=== PATIENT | male | born 1945 | race Caucasian/White ===

== ENCOUNTER 2019-05-17 11:13 | Outpatient (CLI) | payer MEDICARE, BC, SELFPAY ==
--- NOTE | 2019-05-17 08:45 | DI.RAD_ITS ---
SYMPTOM/DIAGNOSIS: LOW BACK PAIN, DORSALGIA, M54.9 LUMBAR SPINE: AP, lateral and bilateral oblique views of the lumbar spine were obtained. Comparison is made with 08/16/14. There are five lumbar type vertebral bodies. Since the prior examination, the patient has undergone a laminectomy at L 4. There is a very mild right convex curvature of the lumbar spine present. There is disc space narrowing at L 1-2, L 3-4 and L 5-S 1 with vacuum discs at L 3-4 and L 5-S 1. There are endplate osteophytes throughout the lumbar spine. Facet arthropathy is present throughout the lumbar spine. No acute fracture or subluxation is seen. No spondylolysis or spondylolisthesis is present. There is calcium in the abdominal aorta noted. IMPRESSION: Moderately severe degenerative changes in the lumbar spine. Status post L 4 laminectomy.
== END 2019-05-17 11:33 ==
PROVIDERS: PCP Family Medicine; Visit Provider Family Medicine
DX: M54.5 Low back pain (principal); M51.37 Other intervertebral disc degeneration, lumbosacral region; Z98.890 Other specified postprocedural states
CPT/HCPCS: 72110

== ENCOUNTER 2019-06-05 10:17 | Outpatient (CLI) | payer MEDICARE, BC, SELFPAY | END 2019-06-05 10:37 | PROVIDERS: PCP Family Medicine; Visit Provider Family Medicine | DX: M54.9 Dorsalgia, unspecified (principal) | CPT/HCPCS: 36415; 82565 ==

== ENCOUNTER 2019-06-07 00:57 | Outpatient (CLI) | payer MEDICARE, BC, SELFPAY ==
[2019-06-07] MEDS: Normal Saline Flush 10 ML SYR IVP (15:12)
[2019-06-07] MEDS: Gadoterate meglumine 20 ML VIAL IVP (15:14)
--- NOTE | 2019-06-07 15:45 | DI.MRI_ITS ---
SYMPTOMS/DIAGNOSIS: BACK PAIN WITH LEFT LEG RADICULAR PAIN, H/O L4 LAMINECTOMY, M54.9, DORSALGIA MRI OF THE LUMBAR SPINE: Comparison is made with November,. T1, T2 and STIR sagittal, T1 and T2 axial and pre and post gadolinium fat-suppressed T1 axial and sagittal sequences were performed. At L1-2, there is disc bulging, which is eccentric toward the right, encroaching on the right neural foramen. At L2-3, there is broad-based disc bulging, also mildly encroaching on both neural foramina. There are facet degenerative changes and ligamentous hypertrophy combining to cause mild central canal stenosis. At L3-4, there is moderate to severe loss of disc height eccentric toward the left. There is prominent broad-based disc bulging. There are facet degenerative changes and ligamentous hypertrophy creating severe bilateral neural foraminal narrowing as well as a moderate degree of central canal stenosis. The findings are more prominent compared with the previous exam. There has been previous laminectomy at L4-5. There is no significant narrowing of the central canal. There is broad-based disc bulging and bilateral neural foraminal narrowing of moderate to severe degree. At L5-S1, there is mild loss of disc height and endplate osteophytes as well as mild broad-based disc bulging. There are mild facet degenerative changes. There is severe right and moderate to severe left neural foraminal narrowing. Post contrast images show enhancement within the L3 vertebral body and at the superior endplate of L4. The findings could represent degenerative marrow signal changes; however, superimposed infection cannot be excluded. IMPRESSION: 1. Enhancement in the L3 and L4 vertebral bodies, which could be postsurgical and/or degenerative. Osteomyelitis cannot be excluded. 2. Severe degenerative disc changes and facet degenerative changes cause bilateral neural foraminal narrowing at multiple levels, most severe at L3-4. There is also multilevel disc bulging, most severe at L3-4. Moderate central canal stenosis is seen at L3-4.
== END 2019-06-07 01:17 ==
PROVIDERS: PCP Family Medicine; Visit Provider Family Medicine
DX: M54.16 Radiculopathy, lumbar region (principal); M51.17 Intervertebral disc disorders with radiculopathy, lumbosacral region; M47.27 Other spondylosis with radiculopathy, lumbosacral region; Z98.890 Other specified postprocedural states
CPT/HCPCS: 72158

== ENCOUNTER 2019-07-01 09:19 | Outpatient (CLI) | payer MEDICARE, BC, SELFPAY ==
[2019-07-01 11:03] LABS: C-Reactive Protein 0.25 mg/dL (0.0-0.3)
== END 2019-07-01 09:39 ==
PROVIDERS: PCP Family Medicine; Visit Provider Family Medicine
DX: M54.9 Dorsalgia, unspecified (principal)
CPT/HCPCS: 36415; 86140

== ENCOUNTER 2019-07-15 07:00 | Outpatient (CLI) | payer MEDICARE, BC, SELFPAY ==
[2019-07-15 12:58] LABS: Uric Acid 4.6 mg/dL (3.5-7.2)
[2019-07-15 13:10] LABS: Calculated LDL 89 mg/dL; Cholesterol 192 mg/dL (50-200); HDL Cholesterol 38 mg/dL (40-60); Triglyceride 328 mg/dL (30-150)
== END 2019-07-15 07:20 ==
PROVIDERS: PCP Family Medicine; Visit Provider Family Medicine
DX: E78.5 Hyperlipidemia, unspecified (principal); M10.9 Gout, unspecified
CPT/HCPCS: 36415; 80061; 82565; 84550

== ENCOUNTER 2019-07-29 09:50 | Outpatient (CLI) | payer MEDICARE, BC, SELFPAY ==
--- NOTE | 2019-07-29 10:14 | DI.RAD_ITS ---
EXAM: XR CHEST 2V PA LATERAL INDICATION: pre op [id number]. COMPARISON: No exams were available for comparison TECHNIQUE: 2D digital imaging was performed. FINDINGS: The heart is not enlarged. The lungs are clear. No pleural effusion seen. IMPRESSION: Negative examination of the chest.
[2019-07-29 10:21] LABS: HCT 44.6 % (40.0-50.0); HGB 14.9 g/dL (13.5-17.5); Mean Corp. HGB Concentration 33.4 g/dL (32.0-36.0); Mean Corpuscular Hemoglobin 32.3 pg (27.0-33.0); Mean Corpuscular Volume 96.7 fL (80-95); Mean Platelet Volume 10.4 fL (8.0-11.0); Platelet Count 246 x1000/uL (130-400); RBC 4.61 m/cumm (4.50-6.00); RBC Distribution Width 12.9 % (11.8-14.1); White Blood Cell Count 8.17 k/cumm (4.4-10.8)
[2019-07-29 12:57] LABS: ALT 62 U/L (16-63); AST 45 U/L (15-37); Albumin 4.2 g/dL (3.4-5.0); Alkaline Phosphatase 74 U/L (46-116); Anion Gap 11.5 mmol/L (3-11); BUN 17 mg/dL (7-18); Bilirubin, Total 0.7 mg/dL (0.2-1.0); CO2 24.5 mmol/L (21.0-32.0); CREATININE 1.09 mg/dL (0.70-1.30); Calcium 9.2 mg/dL (8.5-10.1); Chloride 106 mmol/L (98-107); Glucose 126 mg/dL (70-100); Potassium 4.7 mmol/L (3.5-5.1); Sodium 142 mmol/L (136-145); Total Protein 7.4 g/dL (6.4-8.2)
== END 2019-07-29 10:10 ==
PROVIDERS: PCP Family Medicine; Visit Provider Family Medicine
DX: Z01.818 Encounter for other preprocedural examination (principal); R69 Illness, unspecified
CPT/HCPCS: 36415; 80053; 85027; 71046

== ENCOUNTER 2019-11-16 00:34 | Outpatient (CLI) | payer MEDICARE, BC, SELFPAY ==
[2019-11-16 07:59] LABS: CREATININE 0.97 mg/dL (0.70-1.30)
[2019-11-16] MEDS: Normal Saline Flush 10 ML SYR IVP (08:37)
[2019-11-16] MEDS: Gadoterate meglumine 20 ML VIAL IVP (08:38)
--- NOTE | 2019-11-16 08:50 | DI.MRI_ITS ---
EXAM: MR LUMBAR SPINE WO/W CLINICAL HISTORY: RECURRENT BACK AND LEG PAIN, M54.5,M79.604, H/O LAMINECTOMY TECHNIQUE: Multiplanar multisequence MRI was performed. FINDINGS: The conus medullaris has a normal appearance and location. The patient is status post L4 laminectomy. At L5-S1, there is disc desiccation. Endplate osteophytes and endplate degenerative signal changes n oted. There is a diffuse disc bulge. No significant central spinal canal stenosis is present. Ther e is moderate bilateral neural foraminal stenosis. At L4-L5, there is a diffuse disc bulge. There are degenerative endplate signal changes and disc giselle iccation. No significant central spinal canal stenosis is seen. Moderate bilateral neural foraminal stenosis is present. At L3-L4, there is a diffuse disc bulge again noted. There are degenerative endplate signal changes. There are degenerative changes of the facets. These findings all contribute to cause severe centra l spinal canal stenosis. There is moderately severe right and severe left neural foraminal stenosis. At L2-L3, there is a mild diffuse disc bulge. There are degenerative endplate signal changes and disc desiccation. No significant central spinal canal stenosis is present. There is mild right neural fo raminal stenosis. At L1-L2, no significant central spinal canal stenosis is seen. Degenerative endplate signal changes . No significant neural foraminal stenosis is seen on the left. There is mild right neural foramina l stenosis. Following contrast administration, there is again seen enhancement of the endplates at L3-L4, it appe ars unchanged. No focal fluid collection is seen. IMPRESSION: 1. Multilevel degenerative changes in the lumbar spine. The findings are most marked at L3-L4. Find ings at this level cause severe central spinal canal and bilateral neural foraminal stenosis. 2. Stable enhancement of the L3-L4 vertebral bodies. No focal fluid collection is seen. This may be degenerative or postsurgical. Osteomyelitis may be considered less likely.
== END 2019-11-16 00:54 ==
PROVIDERS: PCP Family Medicine; Visit Provider Neurological Surgery
DX: M54.5 Low back pain (principal); M79.604 Pain in right leg; Z98.890 Other specified postprocedural states; M51.36 Other intervertebral disc degeneration, lumbar region; Z13.89 Encounter for screening for other disorder
CPT/HCPCS: 72158; 82565

== ENCOUNTER 2019-12-16 14:15 | Outpatient (CLI) | payer MEDICARE, BC, SELFPAY ==
[2019-12-16 15:17] LABS: HCT 44.4 % (40.0-50.0); HGB 15.1 g/dL (13.5-17.5); Mean Corpuscular Hemoglobin 32.6 pg (27.0-33.0); Mean Corpuscular Volume 95.9 fL (80-95); Mean Platelet Volume 10.8 fL (8.0-11.0); Platelet Count 268 x1000/uL (130-400); RBC 4.63 m/cumm (4.50-6.00); White Blood Cell Count 7.84 k/cumm (4.4-10.8)
[2019-12-16 16:08] LABS: ALT 72 U/L (16-63); AST 51 U/L (15-37); Albumin 4.2 g/dL (3.4-5.0); Alkaline Phosphatase 74 U/L (46-116); BUN 16 mg/dL (7-18); Bilirubin, Total 0.6 mg/dL (0.2-1.0); CREATININE 1.09 mg/dL (0.70-1.30); Calcium 9.2 mg/dL (8.5-10.1); Chloride 104 mmol/L (98-107); Glucose 87 mg/dL (74-106); Potassium 4.2 mmol/L (3.5-5.1); Sodium 143 mmol/L (136-145); Total Protein 7.4 g/dL (6.4-8.2)
== END 2019-12-16 14:35 ==
PROVIDERS: PCP Family Medicine; Visit Provider Family Medicine
DX: M54.9 Dorsalgia, unspecified (principal); Z01.818 Encounter for other preprocedural examination
CPT/HCPCS: 36415; 80053; 85027

== ENCOUNTER 2020-04-20 02:42 | Outpatient (CLI) | payer MEDICARE, BC, SELFPAY ==
--- NOTE | 2020-04-20 | DI.MRI_ITS ---
EXAM: MR LUMBAR SPINE WO/W CLINICAL HISTORY: RECURRENT/RESIDUAL LT LEG PAIN, MULTIPLE LS SURGERIES, M79.605. TECHNIQUE: Multiplanar multisequence MRI of the Lumbar Spine was performed. CONTRAST MATERIAL: IV Contrast: 20 mL of Dotarem contrast administered. COMPARISON: MR MR LUMBAR SPINE WO/W from 11/16/2019 FINDINGS: Patient was in severe pain during the exam. The exam is mildly limited by motion. Bones: The last intervertebral disc space is designated the L5/S1 level for the numbering purpose of this examination. The vertebral body heights are well maintained. There is a mild degenerative dextr oscoliosis centered at L3-4. Degenerative signal changes are again noted at the L3-4 endplates. Cord: The conus tip ends at the T12 L1 level. It is of normal size and signal intensity. T12-L1: No disc herniations or bulges are present. L1-2: There is disc bulging which is eccentric toward the right, causing mild right neural foraminal narrowing. L2-3: There is broad-based disc bulging eccentric toward the left, causing left neural foraminal narr owing. Facet degenerative changes contribute to [id number] central canal stenosis. L3-4: Laminectomy defect. Loss of disc height, endplate osteophytes and prominent diffuse disc bulgi ng, stable. There is some scarring within the central canal. There is severe central canal stenosis as well as severe right and moderate left neural foraminal narrowing. L4-5: Broad-based disc bulging is noted. There are mild facet degenerative changes. There is no si gnificant central canal stenosis. There is severe right and moderate left neural foraminal narrowing . L5-S1: Broad-based disc osteophytes. [id number] facet degenerative changes. No significant c entral canal stenosis. Severe right and moderate left neural foraminal narrowing. Soft tissues: The visualized SI joints and sacrum are well maintained. Postsurgical changes are seen in the posterior at the L3-4 level. The aorta is normal in diameter. There is no evidence of suspicious enhancement. IMPRESSION: Stable postsurgical and degenerative changes at L3-4. No new disc herniation is seen. There is no c hange in the postsurgical enhancement. DATA REPOSITORY:
[2020-04-20 09:02] LABS: CREATININE 1.11 mg/dL (0.70-1.30)
[2020-04-20] MEDS: Normal Saline Flush 10 ML SYR IVP (09:09)
[2020-04-20] MEDS: Gadoterate meglumine 20 ML VIAL IVP (09:10)
== END 2020-04-20 03:02 ==
PROVIDERS: PCP Family Medicine; Visit Provider Neurological Surgery
DX: M10.9 Gout, unspecified (principal); M79.605 Pain in left leg; M54.5 Low back pain; M51.36 Other intervertebral disc degeneration, lumbar region; Z98.1 Arthrodesis status
CPT/HCPCS: 72158; 82565

== ENCOUNTER 2020-07-18 13:14 | Outpatient (REF) | payer MEDICARE, BC, SELFPAY ==
[2020-07-18 14:03] LABS: Calculated LDL 113 mg/dL (<100); Cholesterol 208 mg/dL (<200); Glucose 106 mg/dL (74-106); HDL Cholesterol 42 mg/dL (40-60); Triglyceride 268 mg/dL (<150)
== END 2020-07-18 13:34 ==
LOC: LBN 13:14
PROVIDERS: PCP Family Medicine; Visit Provider Family Medicine
DX: E78.5 Hyperlipidemia, unspecified (principal); R73.9 Hyperglycemia, unspecified
CPT/HCPCS: 80061; 82947

== ENCOUNTER 2021-08-23 08:44 | Outpatient (CLI) | payer MEDICARE, BC, SELFPAY ==
[2021-08-23 10:45] LABS: Uric Acid 3.9 mg/dL (3.5-7.2)
[2021-08-23 11:10] LABS: Calculated LDL 85 mg/dL (<100); Cholesterol 169 mg/dL (<200); HDL Cholesterol 44 mg/dL (40-60); Triglyceride 200 mg/dL (<150)
== END 2021-08-23 08:45 | disposition home or self-care (01) ==
LOC: LOS 08:44
PROVIDERS: PCP Family Medicine; Referring Provider Family Medicine; Visit Provider Family Medicine
DX: E78.5 Hyperlipidemia, unspecified (principal); M10.9 Gout, unspecified
CPT/HCPCS: 36415; 80061; 84550

== ENCOUNTER 2022-07-08 14:57 | Outpatient (CLI) | payer MEDICARE, BC, SELFPAY ==
--- NOTE | 2022-07-08 14:45 | RT.EKG_ITS ---
APPROVED REPORT Exam: Resting ECG Reason for Exam: SOB Patient Location: O HR:112 bpm ECG Measurements Heart Rate 112 AXIS SC 138 P 68 QRSd 109 QRS -76 QT 361 T 76 QTc 493 Conclusion Sinus tachycardia...rate> 99 Multiform ventricular premature complexes...short R-R, variable morphology Inferior infarct, old...Q >35mS, II III aVF Anterior infarct, old...Q >40mS, abnormal ST-T, V2-V5
== END 2022-07-08 14:58 | disposition home or self-care (01) ==
PROVIDERS: PCP Family Medicine; Visit Provider Family Medicine
DX: R06.02 Shortness of breath (principal); R94.31 Abnormal electrocardiogram [ECG] [EKG]; I25.2 Old myocardial infarction; R00.0 Tachycardia, unspecified
CPT/HCPCS: 93010

== ENCOUNTER → 2022-07-08 15:51 | Outpatient (CLI) | payer MEDICARE, BC, SELFPAY ==
--- NOTE | 2022-07-08 15:30 | DI.RAD_ITS ---
Exam(s) XR CHEST 2V PA LATERAL EXAM: XR CHEST 2V PA LATERAL CLINICAL HISTORY: sob R05.3 CHRONIC COUGH TECHNIQUE: 2D digital imaging was performed of the chest. Two images were obtained. PA and lateral views were obtained. COMPARISON: CR XR CHEST 2V PA LATERAL from 07/29/2019 FINDINGS: MEDIASTINUM: Normal. HEART: Upper limits of normal. PULMONARY VASCULATURE: Mild pulmonary venous congestion. LUNGS: Diffuse increased interstitial markings bilaterally. No focal consolidating infiltrates. Und erlying COPD. PLEURAL SPACE: Blunting of both costophrenic angle suggesting small pleural effusions. BONE:Within normal limits for the patient's age. OTHER FINDINGS:Normal. IMPRESSION: Findings suggest a pulmonary venous congestion, pulmonary edema and small pleural effusions. DATA REPOSITORY: RADIATION DOSE DELIVERED:
== END ==
PROVIDERS: PCP Family Medicine; Visit Provider Family Medicine
DX: R05.3 Chronic cough (principal); J90 Pleural effusion, not elsewhere classified; J81.0 Acute pulmonary edema
CPT/HCPCS: 71046

== ENCOUNTER 2022-07-08 16:33 | Outpatient (CLI) | payer MEDICARE, BC, SELFPAY ==
[2022-07-08 16:37] LABS: Abs Immature Grans 0.04 10^3/uL (0.0-0.06); Absolute Basophil Count 0.04 10^3/uL (0.0-0.2); Absolute Eosinophil Count 0.13 10^3/uL (0.0-0.7); Absolute Lymphocyte Count 1.32 10^3/uL (1.2-3.4); Absolute Monocyte Count 0.71 10^3/uL (0.1-0.8); Absolute Neutrophil Count 5.74 10^3/uL (1.2-6.7); Basophils % 0.5; Eosinophils % 1.6; HCT 41.1 % (40.0-50.0); HGB 13.5 g/dL (13.5-17.5); Immature Grans % 0.5; Lymphocytes % 16.5; MCH 32.5 pg (27.0-33.0); MCHC 32.8 % (32.0-36.0); MCV 99 fL (80-95); MPV 10.4 fL (8.0-11.0); Monocytes % 8.9; Platelet Count 213 10^3/uL (130-400); RBC 4.16 10^6/uL (4.36-5.78); RDW 13.2 % (11.8-14.1); RDW-SD 47.6 fL; WBC 7.98 10^3/uL (4.4-10.8)
[2022-07-08 17:19] LABS: Anion Gap 8.8 mmol/L (3-11); BUN 14 mg/dL (7-18); CO2 27.2 mmol/L (21.0-32.0); CREATININE 1.1 mg/dL (0.70-1.30); Calcium 9.4 mg/dL (8.5-10.1); Chloride 103 mmol/L (98-107); Estimated GFR 70.01 (mL/min/1.73m2); Glucose 122 mg/dL (74-106); NT-proBNP 1893 pg/mL (<300); Potassium 4.3 mmol/L (3.5-5.1); Sodium 139 mmol/L (136-145)
== END 2022-07-08 16:34 | disposition home or self-care (01) ==
LOC: LBO 16:33
PROVIDERS: PCP Family Medicine; Visit Provider Family Medicine
DX: E87.1 Hypo-osmolality and hyponatremia (principal); R06.02 Shortness of breath; D64.9 Anemia, unspecified
CPT/HCPCS: 36415; 80048; 71046; 83880; 85025

== ENCOUNTER → 2022-08-04 01:48 | Outpatient (CLI) | payer MEDICARE, BC, SELFPAY ==
--- NOTE | 2022-08-04 14:52 | DI.RAD_ITS ---
Exam(s) XR WRIST RT COMPL NAVICULAR EXAM: XR WRIST RT COMPL NAVICULAR CLINICAL HISTORY: rt wrist pain for one month,M25.531. TECHNIQUE: 2D digital imaging was performed. Three views. COMPARISON: No exams were available for comparison FINDINGS: BONES: No acute fracture is present. No bony destructive lesion is seen. Navicular appears normal. JOINTS: The carpal bones are normally aligned. Mild degenerative changes 1st carpal metacarpal join t. SOFT TISSUE: Mild soft tissue swelling near radial styloid. IMPRESSION: No acute abnormality. DATA REPOSITORY: RADIATION DOSE DELIVERED:
--- NOTE | 2022-08-04 14:52 | DI.RAD_ITS ---
Exam(s) XR KNEE RT 3V AP,LAT,ARTEM EXAM: XR KNEE RT 3V AP,LAT,ARTEM CLINICAL HISTORY: rt knee pain; known arthritis; previous trauma,M25.569. TECHNIQUE: 2D digital imaging was performed. Three views. COMPARISON: No exams were available for comparison FINDINGS: BONES: No acute fracture is present. No bony destructive lesion is seen. Small enthesophyte at the quadriceps insertion on the patella. JOINTS: The knee is normally aligned. No joint effusion is seen. SOFT TISSUE: Mild vascular calcifications. IMPRESSION: Unremarkable radiographs of the right knee. DATA REPOSITORY: RADIATION DOSE DELIVERED:
== END ==
PROVIDERS: PCP Family Medicine; Visit Provider Family Medicine
DX: M25.561 Pain in right knee (principal); M25.531 Pain in right wrist; M18.11 Unilateral primary osteoarthritis of first carpometacarpal joint, right hand; M79.89 Other specified soft tissue disorders
CPT/HCPCS: 73562; 73110

== ENCOUNTER 2022-08-04 04:45 | Outpatient (CLI) | payer MEDICARE, BC, SELFPAY ==
[2022-08-04 16:32] LABS: Anion Gap 9.6 mmol/L (3-11); CO2 29.4 mmol/L (21.0-32.0); Chloride 101 mmol/L (98-107); NT-proBNP 1417 pg/mL (<300); Potassium 3.9 mmol/L (3.5-5.1); Sodium 140 mmol/L (136-145)
[2022-08-04 21:43] LABS: C-Reactive Protein 0.73 mg/dL (0.0-0.3)
== END 2022-08-04 04:46 | disposition home or self-care (01) ==
LOC: LBO 04:45
PROVIDERS: PCP Family Medicine; Visit Provider Family Medicine
DX: I50.9 Heart failure, unspecified (principal); E87.1 Hypo-osmolality and hyponatremia
CPT/HCPCS: 36415; 73562; 80051; 73110; 83880; 86140

== ENCOUNTER → 2022-08-26 01:31 | Outpatient (CLI) | payer MEDICARE, BC, SELFPAY ==
--- NOTE | 2022-08-26 10:44 | DI.US_ITS ---
APPROVED REPORT EXAM: Comprehensive 2D, Doppler, and color-flow Echocardiogram Patient Location: Out-Patient Quality Control Lab Tech: Apple Gilbert RDCS (AE) Indications: CHF Conclusion Mild concentric left ventricular hypertrophy. Estimated ejection fraction is 55%. There are no segm ental wall motion abnormalities Normal right ventricular size and systolic function Both atria are normal in size Aortic valve is sclerotic and trileaflet without stenosis or regurgitation Mitral annular calcification. Mild mitral regurgitation Normal tricuspid valve with trace regurgitation Wall motion Left Ventricle The left ventricle is normal size. The left ventricular systolic function is normal. The left ventric ular ejection fraction is within the normal range. Mild concentric left ventricular hypertrophy. Ther e is normal LV segmental wall motion. There is no ventricular septal defect visualized. LVEF is 55%. Right Ventricle The right ventricle is normal size. The right ventricular systolic function is normal. Atria The left atrium size is normal. The right atrium size is normal. The interatrial septum is intact wit h no evidence for an atrial septal defect. Aortic Valve The Aortic valve is sclerotic. Aortic valve is trileaflet. There is no aortic valvular stenosis. No a ortic regurgitation is present. Mitral Valve Mild mitral annular calcification. No evidence of mitral valve stenosis. Mild mitral regurgitation. Tricuspid Valve The tricuspid valve is normal in structure. There is no tricuspid valve stenosis. Trace tricuspid reg urgitation. Unable to assess PA pressure. Pulmonic Valve The pulmonary valve is normal in structure. There is no pulmonic valvular stenosis. There is no pulmo tani valvular regurgitation. Great Vessels The aortic root is normal in size. The ascending aorta is normal in size. Aortic arch is not well vis ualized. IVC is normal in size and collapses >50% with inspiration. Pericardium There is no pericardial effusion. 2D Dimensions IVSD d PLAX 1.32 cm M: 0.6-1.2 LV Vol A2C d MOD 86.0 mL LVPW d PLAX 1.31 cm M: 0.6 - 1.2 LV Vol A4C d MOD 95.2 mL LVID d PLAX 4.66 cm M: 4.2 - 5.8 LA vol/ BSA A2C s A-L 26.3 mL/m2 LVDs 3.35 cm M: 2.5 - 4.0 LA vol/ BSA A4C s A-L 22.1 mL/m2 Ao Root d 2.89 cm M: 3.1 - 3.7 LA Vol/ BSA Biplane s A-L 24.8 mL/m2 Ao Asc Diam d 3.39 cm M: 2.6 - 3.4 LA Area A4C s MOD 17.62 cm2 LV EF Teichholz 53.3 % LA Area A2C s MOD 18.69 cm2 LVEF (Mccall's) 54.50 % M: 52 - 72 LV EF A4C MOD 57.2 % LV Volume 65.74 mL M: 62 - 150 LV EF A2C MOD 55.0 % LV Volume Index 29.88 mL/m2 M: 34 - 74 LV EF Biplane MOD 54.5 % LV Vol Biplane MOD 90.5 mL SV 49.30 mL FS 27.35 % SV Index 22.35 mL/m2 M-Mode TAPSE 1.45 cm (M/F) >1.7 LV Diastology MV E' medial 0.055 (>0.07 m/s) E/A Ratio 1.3 LV E/e MED 15.45 (<14) MV E Vmax 0.85 (0.4-1.3 m/s) MV E' lateral 0.075 (>0.1 m/s) MV A Vmax 0.65 (0.4-1.3 m/s) LV E/e LAT 11.40 (<14) MV E/A Ratio 1.26 MV E/E' medial 15.47 MV E/E' lateral 11.41 Aortic Valve LVOT Area 2.92 cm2 AoV Area Vmax 1.62 cm2 LVOT Vmax 0.76 m/s AoV Area/ BSA (Vmax) 0.73 cm2/m2 LVOT Mean Heladio. 0.52 m/s YUN Mean Heladio. 1.46 cm2 LVOT Peak Grad 2.3 mmHg YUN Mean Heladio. Index 0.66 cm2/m2 LVOT Mean Grad 1.3 mmHg LVOT VTI 0.143 m LVOT Diam s 1.90 cm AoV Vmax 1.38 m/s Velocity Ratio 0.55 AoV Mean Heladio. 1.05 m/s AoV Peak Grad 7.6 mmHg LVOT SV 41.84 mL AoV Mean Grad 4.7 mmHg AoV VTI 0.247 m AoV Area VTI 1.70 cm2 AoV Area/ BSA (VTI) 0.77 cm/m2 Mitral Valve MV DT 231 (160-240 msec) MV PHT 67 msec MV Area PHT 3.29 cm2 MV VTI 0.185 m MV Area VTI 2.27 (4.0-6.0 cm2) Pulmonary Valve PV Vmax 0.80 (0.5-1.5 m/s) RVOT Peak Gr. 1.57 mmHg PV Peak Grad 2.6 mmHg RVOT Mean Gr. 0.75 mmHg PV Mean Grad 1.5 mmHg RVOT VTI 0.090 m PV VTI 0.153 m RVOT Vmax 0.63 m/s
== END ==
PROVIDERS: PCP Family Medicine; Visit Provider Family Medicine
DX: I50.9 Heart failure, unspecified (principal); I35.2 Nonrheumatic aortic (valve) stenosis with insufficiency; I34.0 Nonrheumatic mitral (valve) insufficiency
CPT/HCPCS: 93306

== ENCOUNTER 2022-10-23 11:52 | Emergency (ER) | payer MEDICARE, BC, SELFPAY ==
[2022-10-23] VITALS (38 sets, daily range): BP systolic 127–162; BP diastolic 78–121; PULSE 73–97; RESP 11–29; TEMP 36.6; O2SAT 97–100
--- NOTE | 2022-10-23 11:45 | RT.EKG_ITS ---
APPROVED REPORT Exam: Resting ECG Reason for Exam: CHEST PAIN Patient Location: E HR:90 bpm ECG Measurements Heart Rate 90 AXIS KS 220 P 55 QRSd 112 QRS -90 QT 397 T 63 QTc 490 Conclusion Sinus rhythm...normal P axis, V-rate 60- 99 Multiple ventricular premature complexes...V complexes w/ short R-R intervls Prolonged KS interval...KS >220, V-rate 50- 90 Anterolateral infarct, age indeterminate...Q >35mS, flat/neg T, V3-V6,I,aVL. Sinus. PVCs. No significant change from previous. No STEMI. I have reviewed and interpreted ECG and agree with software generated interpretation.
--- NOTE | 2022-10-23 11:48 | W.ED.GENAD ---
Discharge Plan Disposition Patient Disposition: Home Condition: Stable Discharge Details Clinical Impression: Chest pain Primary Care Provider: Ludwin Heaton ED Provider: Larissa Loera Home Meds and New Rx's Prescriptions: Continued albuterol sulfate [Ventolin HFA] 90 mcg/actuation HFA aerosol inhaler 2 puff IH Q6H PRN (Reason: bronchospasm) Qty: 6.7 5RF furosemide [Lasix] 20 mg tablet 20 mg PO DAILY Qty: 90 0RF silver sulfadiazine 1 % cream 1 applic topical BID Qty: 50 0RF Rx Instructions: apply a 1.5 mm thickness (DME) nebulizers [Mini Plus Nebulizer] 1 EACH misc 1 ea Miscellaneous QID Qty: 1 0RF ipratropium-albuterol 0.5 mg-3 mg(2.5 mg base)/3 mL solution for nebulization 3 ml IH QID PRN (Reason: shortness of breath) Qty: 180 11RF allopurinol 300 mg tablet 300 mg PO DAILY Qty: 90 3RF simvastatin 20 mg tablet 20 mg PO QPM Qty: 90 3RF saw palmetto-pumpkin seed oil 160 MG capsule 5 cap PO DAILY Label Comments: 01/22 Discharge Instructions Instructions: Chest Pain (ED) Additional Instructions: Your blood tests, EKGs and imaging today are reassuring and show no evidence of acute concerning or significant findings. Drink plenty of fluids and get plenty of rest. An order for an outpatient stress test has been placed. You will be contacted by the radiology department for scheduling of this test. You can start taking an jyij-yci-icqufez proton pump inhibitor such as Prilosec once daily for the next 2 weeks. Follow-up with your scheduled appointment with cardiology next month. Follow-up with your primary care doctor in 1 week. Return to the emergency department with any worsening or new concerning symptoms. Discharge Data Discharge Date/Time-TO BE ENTERED AT DEPARTURE: 10/23/22 16:39 Discharge Physician: Larissa Loera Medical Decision Making 1215 -- 77-year-old male with history of gout, hyperlipidemia and CHF presents for intermittent chest pain for the past 5 days, more intense episode today. Blood pressure hypertensive at 162/103. Heart rate elevated at 97. Remainder vitals within normal limits. Patient appears comfortable and nontoxic. His chest normal to inspection without tenderness. His EKG notes a rate of 90, sinus, PVCs with no STEMI and no significant change compared to previous EKG. His right lower extremity appears dusky red compared to the left lower extremity and this may be an association with venous stasis. His distal pulses are intact and he has no significant lower extremity edema. Does not appear consistent with cellulitis. Differential diagnosis includes CHF, GERD, ACS, PE, COVID, dehydration, pneumonia. We will place an IV, bolus IV fluids, screening labs, right lower extremity ultrasound, chest x-ray and reassess. 1500 --labs and imaging reviewed. Normal white blood cell count. Normal electrolytes. BNP 1458 which is improved compared to recent result. Troponin negative. D-dimer within normal limits. Fluvid negative. Chest x-ray negative. Ultrasound negative for DVT. Patient reassessed and he denies any change in his pain. We will plan for repeat troponin and EKG. We will give a dose of Valium and Dilaudid for pain relief. Patient states he would prefer to go home. 1610 --repeat troponin negative. Repeat EKG unchanged. Patient reassessed. He had declined the Dilaudid and Valium. He states he would like to go home. Disposition decision made weighing the risks and benefits of hospitalization versus outpatient treatment, the risk for further decompensation, and the patient's wishes. An order for an outpatient stress test has been placed. Patient drinks daily alcohol. He is advised that possible triggers for GERD include alcohol, spicy and high-fat foods. He is advised to safely decrease alcohol use under the guidance of the physician due to risk of alcohol withdrawal seizures and potentially . Advised to start an tdrr-lhy-syncjur proton pump inhibitor. He has a follow-up appoint with cardiology on November 06. Advised to follow up with the primary care doctor for re-evaluation. Usual and customary return precautions given prior to discharge. Medical Records Medical records reviewed: Yes I reviewed the patient's medical records. Medical records narrative: Echocardiogram 08/26/22 Conclusion Mild concentric left ventricular hypertrophy.? Estimated ejection fraction is 55%.? There are no segmental wall motion abnormalities Normal right ventricular size and systolic function Both atria are normal in size Aortic valve is sclerotic and trileaflet without stenosis or regurgitation Mitral annular calcification.? Mild mitral regurgitation Normal tricuspid valve with trace regurgitation Imaging Data Radiologic Study: Radiologist's impression: US LOWER EXTREMITY VENOUS RT CLINICAL HISTORY: ? right leg swelling, pain, r/o dvt.? TECHNIQUE: ? Lower extremity venous ultrasound performed using grayscale, color-flow, and spectral Doppler analysis. COMPARISON:? No exams were available for comparison FINDINGS: The common femoral, femoral and popliteal veins demonstrate normal compressibility, augmentation, and color Doppler. The posterior tibial veins are patent.? No saphenous vein thrombosis or other superficial venous thrombosis is seen.? No hematoma or Fitzpatrick's cyst is seen. IMPRESSION: Negative lower extremity ultrasound.? No evidence of DVT.? XR CHEST 2V PA ? LATERAL CLINICAL HISTORY:? chest pain, r/o acute disease TECHNIQUE:? 2D digital imaging was performed. COMPARISON:? CR XR CHEST 2V PA ? LATERAL from 07/08/2022 FINDINGS: HEART: Normal size.? Aorta: Not dilated.? Mildly tortuous. PULMONARY VASCULATURE: Normal. LUNGS: Clear. ? PLEURAL SPACE: No pleural effusion or pneumothorax. BONE:Unremarkable for age.? IMPRESSION: No acute abnormality.? Lab Data Lab results reviewed: Yes I reviewed the patient's lab results. Labs: Laboratory Tests Range/Units 10/23/22 10/23/22 10/23/22 12:11 12:11 12:11 WBC (4.4-10.8) 10^3/uL 6.72 RBC (4.36-5.78) 10^6/uL 4.58 Hgb (13.5-17.5) g/dL 14.6 Hct (40.0-50.0) % 44.4 MCV (80-95) fL 97 H MCH (27.0-33.0) pg 31.9 MCHC (32.0-36.0) % 32.9 RDW (11.8-14.1) % 13.6 Plt Count (130-400) 10^3/uL 237 MPV (8.0-11.0) fL 10.6 Immature Gran % 0.3 Neutrophils % 70.4 Lymphocytes % 19.3 Monocytes % 8.5 Eosinophils % 0.9 Basophils % 0.6 Nucleated RBC % (0.0-0.3) % 0.0 Absolute Neutrophils (1.2-6.7) 10^3/uL 4.73 Absolute Lymphocytes (1.2-3.4) 10^3/uL 1.30 Absolute Monocytes (0.1-0.8) 10^3/uL 0.57 Absolute Eosinophils (0.0-0.7) 10^3/uL 0.06 Absolute Basophils (0.0-0.2) 10^3/uL 0.04 D-Dimer (<500) ng/mlFEU 463 Sodium (136-145) mmol/L 140 Potassium (3.5-5.1) mmol/L 4.0 Chloride (98-107) mmol/L 102 Carbon Dioxide (21.0-32.0) mmol/L 31.2 Anion Gap (3-11) mmol/L 6.8 BUN (7-18) mg/dL 15 Creatinine (0.70-1.30) mg/dL 1.0 Est GFR (CKD-EPI 2020) (mL/min/1.73m2) 78.49 Glucose (74-106) mg/dL 127 H Calcium (8.5-10.1) mg/dL 9.4 Magnesium (1.8-2.4) mg/dL 2.3 Total Bilirubin (0.2-1.0) mg/dL 0.7 AST (15-37) U/L 40 H ALT (16-63) U/L 44 Alkaline Phosphatase (46-116) U/L 94 Troponin I (<or=60) ng/L < 50 NT-Pro-B Natriuret Pep (<300) pg/mL 1458 H Total Protein (6.4-8.2) g/dL 7.7 Albumin (3.4-5.0) g/dL 3.9 COVID-19 Source SARS-CoV-2 (PCR) (Negative) Influenza Type A (PCR) (Negative) Influenza Type B (PCR) (Negative) RSV (PCR) (Negative) Range/Units 10/23/22 10/23/22 12:22 14:58 WBC (4.4-10.8) 10^3/uL RBC (4.36-5.78) 10^6/uL Hgb (13.5-17.5) g/dL Hct (40.0-50.0) % MCV (80-95) fL MCH (27.0-33.0) pg MCHC (32.0-36.0) % RDW (11.8-14.1) % Plt Count (130-400) 10^3/uL MPV (8.0-11.0) fL Immature Gran % Neutrophils % Lymphocytes % Monocytes % Eosinophils % Basophils % Nucleated RBC % (0.0-0.3) % Absolute Neutrophils (1.2-6.7) 10^3/uL Absolute Lymphocytes (1.2-3.4) 10^3/uL Absolute Monocytes (0.1-0.8) 10^3/uL Absolute Eosinophils (0.0-0.7) 10^3/uL Absolute Basophils (0.0-0.2) 10^3/uL D-Dimer (<500) ng/mlFEU Sodium (136-145) mmol/L Potassium (3.5-5.1) mmol/L Chloride (98-107) mmol/L Carbon Dioxide (21.0-32.0) mmol/L Anion Gap (3-11) mmol/L BUN (7-18) mg/dL Creatinine (0.70-1.30) mg/dL Est GFR (CKD-EPI 2020) (mL/min/1.73m2) Glucose (74-106) mg/dL Calcium (8.5-10.1) mg/dL Magnesium (1.8-2.4) mg/dL Total Bilirubin (0.2-1.0) mg/dL AST (15-37) U/L ALT (16-63) U/L Alkaline Phosphatase (46-116) U/L Troponin I (<or=60) ng/L < 50 NT-Pro-B Natriuret Pep (<300) pg/mL Total Protein (6.4-8.2) g/dL Albumin (3.4-5.0) g/dL COVID-19 Source Nasopharynx SARS-CoV-2 (PCR) (Negative) Negative Influenza Type A (PCR) (Negative) Negative Influenza Type B (PCR) (Negative) Negative RSV (PCR) (Negative) Negative ECG Data Attestation: I personally reviewed and interpreted this ECG (s) as follows: Interpretation: rate of 90, sinus, normal axis, no stemi. HPI General Mode of arrival: EMS. Date/Time Provider Initiated Documentation: 10/23/22 12:28. Information obtained by: patient. HPI Narrative: Patient is a 77-year-old male with a history of gout, hyperlipidemia, CHF who presents from home for intermittent chest pain for the past 4 to 5 days. Patient states he saw the PCP office 3 days ago for follow-up for CHF in which Dr. Heaton placed him on Lasix for lower extremity edema mostly in his right leg which improved after Lasix. Patient states he did not mention to Dr. Rangel at that time that he has been having chest pain. He states the pain has been occurring at random but was more intense today. Patient states the pain feels like a dull ache in his left chest without radiation, aggravating or alleviating factors. He has not taken any medication for pain. Patient admits to some mild shortness of breath earlier when he had the pain but denies any at present. He states pain is currently 4/10. He states the pain is 5/10 at its worst. He denies any fever, cough, nausea, vomiting, abdominal pain or dizziness. Patient states he has not yet taken his Lasix today. Related Data Home Medications Medication Instructions Recorded Confirmed saw palmetto-pumpkin seed oil 160 5 cap PO DAILY 08/11/14 10/23/22 mg capsule nebulizers (Mini Plus Nebulizer #1 ea 03/10/18 10/23/22 [facility] [place]) ipratropium 0.5 mg-albuterol 3 mg 3 ml inhalation QID PRN shortness 07/28/19 10/23/22 (2.5 mg base)/3 mL nebulization of breath #180 mL soln albuterol sulfate 90 mcg/actuation 2 puff inhalation Q6H PRN 07/18/20 10/23/22 aerosol inhaler (Ventolin HFA) bronchospasm #6.7 grams allopurinol 300 mg tablet 300 mg PO DAILY #90 tabs 06/10/22 10/23/22 simvastatin 20 mg tablet 20 mg PO QPM #90 tabs 06/10/22 10/23/22 furosemide 20 mg tablet (Lasix) 20 mg PO DAILY #90 tabs 10/20/22 10/23/22 silver sulfadiazine 1 % topical 1 applic topical BID #50 grams 10/20/22 10/23/22 cream Previous Rx's Medication Instructions Recorded nebulizers (Mini Plus Nebulizer #1 ea 03/10/18 [facility] [place]) ipratropium 0.5 mg-albuterol 3 mg 3 ml inhalation QID PRN shortness 07/28/19 (2.5 mg base)/3 mL nebulization of breath #180 mL soln albuterol sulfate 90 mcg/actuation 2 puff inhalation Q6H PRN 07/18/20 aerosol inhaler (Ventolin HFA) bronchospasm #6.7 grams allopurinol 300 mg tablet 300 mg PO DAILY #90 tabs 06/10/22 simvastatin 20 mg tablet 20 mg PO QPM #90 tabs 06/10/22 furosemide 20 mg tablet (Lasix) 20 mg PO DAILY #90 tabs 10/20/22 silver sulfadiazine 1 % topical 1 applic topical BID #50 grams 10/20/22 cream Allergies Allergy/AdvReac Type Severity Reaction Status Date / Time shellfish derived Allergy Severe Anaphylaxsi Verified 10/23/22 12:00 s HORSE SERUM PROTEINS Allergy Intermediate Uncoded 10/23/22 12:00 General Stated Complaint: Chest Pain KASSIDY: 2 Review of Systems All systems reviewed & are unremarkable except as noted in HPI and below Constitutional Constitutional: Reports as per HPI, Denies chills and Denies fever(s) Eyes Eyes: Denies blurry vision ENT Ears, Nose, Mouth, and Throat: Denies dizziness, Denies sore throat and Denies throat swelling Cardiovascular Cardiovascular: Reports chest pain and Denies dyspnea Respiratory Respiratory: Denies cough and Denies dyspnea Gastrointestinal Gastrointestinal: Denies abdominal pain, Denies diarrhea and Denies vomiting Genitourinary Genitourinary: Denies hematuria and Denies dysuria Musculoskeletal Musculoskeletal: Denies back pain and Denies numbness Integumentary/Breasts Skin/Breast: Denies lesions and Denies rash Neurologic Neurologic: Denies dizziness, Denies localized weakness and Denies numbness Allergic/Immunologic Allergic/Immunologic: Denies throat swelling PFSH All Active Problems (Updated 10/23/22 @ 15:59 by Larissa Loera DO) Chest pain (Acute) Right wrist pain (Acute) CHF (congestive heart failure) (Chronic) Hypertriglyceridemia (Acute) Elevated blood pressure reading without diagnosis of hypertension (Acute) Erectile dysfunction (Acute) Asthma (Acute 06/22/13) Gout (Acute) Joint pain (Acute 06/22/13) Status post carpal tunnel release (Acute) Status post laminectomy (Acute 06/11/16) Right leg swelling (Acute) likely venous insuffi Tick bite (Acute) no sign of disease Back pain (Chronic) deteriorated ?related to fall 6 months ago Knee pain (Acute) Hyperlipidemia with target LDL less than 130 (Acute 06/22/13) Hand joint pain (Acute 06/22/13) Chronic bilateral low back pain without sciatica (Acute 06/11/16) Benign prostatic hyperplasia (Acute 06/22/13) Medical History (Updated 10/23/22 @ 15:59 by Larissa Loera DO) Asthma Gout Hyperlipidemia Surgical History LUMBAR SURGERY 12/30/16- [facility] Neck ortho surgery (09/17/15) Open Carpal Tunnel release Family History Sister , AGE 72 Diabetes Mother , AGE 94 Hyperlipidemia Father , 64 Essential hypertension Stroke Lung cancer Brother No problems noted. Social History (Updated 08/23/21 @ 17:23 by Halle Sullivan) Smoking/Tobacco Use Status: Never Second Hand Exposure: Yes Smoking risk assessment performed?: Yes Alcohol Intake: current Alcohol Intake frequency: a few times a week Alcohol type: beer Drug use: Never Substance use type: does not use Household members: spouse Pets and animals: Yes Pets and animals: dog(s) Sexually active: Yes Do you think of yourself as: straight/heterosexual Current gender identity: male What is your relationship status?: Panel score (0-1 are the most socially isolated patients): 1 Seatbelt use: always Drive intox or ride w/intox food mobile driver: No Do you feel safe at home: Yes Do you feel safe in your relationship?: Yes Exam Const General: cooperative, healthy appearing and no acute distress Orientation: alert, awake and oriented x3 HENMT Head: normal to inspection Face and sinus: normal facial exam Eyes General: appearance normal, both eyes and all related structures Neck Neck: normal visual inspection and No submandibular swelling Lymphatic: no lymphadenopathy noted Chest Chest: normal inspection of the chest and no tenderness Resp Effort & Inspection: normal respiratory effort and able to speak in complete sentences Auscultation: clear to auscultation bilaterally Cardio Rate: regular rate Rhythm: regular rhythm GI Inspection: normal to inspection Palpation: soft, not firm, not rigid and nontender Auscultation: normal bowel sounds Back/Spine/Pelvis Thoracic/Lumbar Spine: thoracic and lumbar spine normal to inspection Skin General skin exam: no rashes or lesions noted Neuro General: patient alert, patient awake and patient oriented x3 Cognition: normal cognition Speech: speech normal Motor: muscle tone normal throughout Sensory Exam: no sensory deficits noted Extrem General: full ROM, capillary refill normal, no calf tenderness bilaterally and no edema Other: dusky red right lower extremity compared to left lower extremity. There is no significant edema in the bilateral lower extremities. Psych Appearance: grossly normal Mental Status: mental status grossly normal Speech and Movement: speech and movement normal Affect: normal affect
[2022-10-23 12:16] LABS: Abs Immature Grans 0.02 10^3/uL (0.0-0.06); Absolute Basophil Count 0.04 10^3/uL (0.0-0.2); Absolute Eosinophil Count 0.06 10^3/uL (0.0-0.7); Absolute Monocyte Count 0.57 10^3/uL (0.1-0.8); Absolute Neutrophil Count 4.73 10^3/uL (1.2-6.7); Basophils % 0.6; Eosinophils % 0.9; HCT 44.4 % (40.0-50.0); HGB 14.6 g/dL (13.5-17.5); Immature Grans % 0.3; Lymphocytes % 19.3; MCH 31.9 pg (27.0-33.0); MCHC 32.9 % (32.0-36.0); MCV 97 fL (80-95); MPV 10.6 fL (8.0-11.0); Monocytes % 8.5; Neutrophils % 70.4; Platelet Count 237 10^3/uL (130-400); RBC 4.58 10^6/uL (4.36-5.78); RDW 13.6 % (11.8-14.1); RDW-SD 48.8 fL; WBC 6.72 10^3/uL (4.4-10.8)
--- NOTE | 2022-10-23 12:30 | DI.US_ITS ---
Exam(s) US LOWER EXTREMITY VENOUS RT EXAM: US LOWER EXTREMITY VENOUS RT CLINICAL HISTORY: right leg swelling, pain, r/o dvt. TECHNIQUE: Lower extremity venous ultrasound performed using grayscale, color-flow, and spectral Do ppler analysis. COMPARISON: No exams were available for comparison FINDINGS: The common femoral, femoral and popliteal veins demonstrate normal compressibility, augmentation, and color Doppler. The posterior tibial veins are patent. No saphenous vein thrombosis or other superfi cial venous thrombosis is seen. No hematoma or Fitzpatrick's cyst is seen. IMPRESSION: Negative lower extremity ultrasound. No evidence of DVT. DATA REPOSITORY:
--- NOTE | 2022-10-23 12:30 | DI.RAD_ITS ---
Exam(s) XR CHEST 2V PA LATERAL EXAM: XR CHEST 2V PA LATERAL CLINICAL HISTORY: chest pain, r/o acute disease TECHNIQUE: 2D digital imaging was performed. COMPARISON: CR XR CHEST 2V PA LATERAL from 07/08/2022 FINDINGS: HEART: Normal size. Aorta: Not dilated. Mildly tortuous. PULMONARY VASCULATURE: Normal. LUNGS: Clear. PLEURAL SPACE: No pleural effusion or pneumothorax. BONE:Unremarkable for age. IMPRESSION: No acute abnormality. DATA REPOSITORY: RADIATION DOSE DELIVERED:
[2022-10-23 12:38] LABS: ALT 44 U/L (16-63); AST 40 U/L (15-37); Albumin 3.9 g/dL (3.4-5.0); Alkaline Phosphatase 94 U/L (46-116); Anion Gap 6.8 mmol/L (3-11); BUN 15 mg/dL (7-18); Bilirubin, Total 0.7 mg/dL (0.2-1.0); CO2 31.2 mmol/L (21.0-32.0); Calcium 9.4 mg/dL (8.5-10.1); Chloride 102 mmol/L (98-107); Estimated GFR 78.49 (mL/min/1.73m2); Glucose 127 mg/dL (74-106); Magnesium 2.3 mg/dL (1.8-2.4); NT-proBNP 1458 pg/mL (<300); Sodium 140 mmol/L (136-145); Total Protein 7.7 g/dL (6.4-8.2); Troponin I < 50 ng/L (<or=60)
[2022-10-23] MEDS: Famotidine 20 MG/2 ML VIAL IVP (12:58)
[2022-10-23 13:23] LABS: COVID-19 PCR Negative (Negative); Influenza A PCR Negative (Negative); Influenza B PCR Negative (Negative); RSV PCR Negative (Negative)
[2022-10-23 13:27] LABS: D-Dimer 463 ng/mlFEU (<500)
[2022-10-23 13:36] LABS: Source Nasopharynx
--- NOTE | 2022-10-23 14:00 | RT.EKG_ITS ---
APPROVED REPORT Exam: Resting ECG Reason for Exam: chest pain Patient Location: E HR:88 bpm ECG Measurements Heart Rate 88 AXIS ME 190 P -2 QRSd 111 QRS 143 QT 393 T -4 QTc 477 Conclusion Sinus rhythm...normal P axis, V-rate 60- 99 Anterolateral infarct, age indeterminate...Q >35mS, flat/neg T, V3-V6,I,aVL. Sinus. Normal axis. No STEMI. I have reviewed and interpreted ECG and agree with software generated interpretation.
[2022-10-23] MEDS: Sucralfate 1 GM TAB PO (14:17)
[2022-10-23 15:22] LABS: Troponin I < 50 ng/L (<or=60)
--- NOTE | 2022-10-23 16:06 | NUR.NOTE ---
Nursing Note: Stress test order (Regular Exercise Treadmill Test) faxed to [facility] for scheduling for chest pain. Instructions given to patient.
[2022-10-23] MEDS: HYDROmorphone 2 MG/ML SYR 0.5 MG IVP (16:39)
== END 2022-10-23 16:39 | disposition home or self-care (01) ==
PROVIDERS: Emergency Provider Physician Assistant; PCP Family Medicine
DX: R07.89 Other chest pain (principal); E78.5 Hyperlipidemia, unspecified; J45.909 Unspecified asthma, uncomplicated; I50.9 Heart failure, unspecified; R00.0 Tachycardia, unspecified; Z20.822 Contact with and (suspected) exposure to COVID-19
CPT/HCPCS: 36415; 80053; 87637; 93005; 96374; 96375; 99284; 99285; 71046; 83735; 83880; 84484; 85025; 85379; 93010; 93971; J1170

== ENCOUNTER 2022-11-06 10:54 | Outpatient (CLI) | payer MEDICARE, BC, SELFPAY ==
--- NOTE | 2022-11-06 10:45 | RT.EKG_ITS ---
APPROVED REPORT Exam: Resting ECG Reason for Exam: evaluation of cardiac status Patient Location: O HR:108 bpm ECG Measurements Heart Rate 108 AXIS [place] 172 P 50 QRSd 110 QRS -85 QT 369 T 62 QTc 495 Conclusion Sinus tachycardia...rate> 99 Probable left atrial enlargement...P >50mS, <-0.10mV V1 Anterolateral infarct, age indeterminate...Q >35mS, flat/neg T, V3-V6,I,aVL Left axis deviation
== END 2022-11-06 10:55 | disposition home or self-care (01) ==
LOC: DI.CARD 10:55
PROVIDERS: PCP Family Medicine; Visit Provider Internal Medicine Cardiovascular Disease
DX: I50.9 Heart failure, unspecified (principal); R03.0 Elevated blood-pressure reading, without diagnosis of hypertension; R07.9 Chest pain, unspecified; R94.31 Abnormal electrocardiogram [ECG] [EKG]; R00.0 Tachycardia, unspecified
CPT/HCPCS: 93010

== ENCOUNTER → 2022-11-06 11:19 | Outpatient (BNVA) | payer MEDICARE, BC, SELFPAY | PROVIDERS: PCP Family Medicine; Referring Provider Family Medicine; Visit Provider Internal Medicine Cardiovascular Disease | DX: R07.9 Chest pain, unspecified (principal); I50.9 Heart failure, unspecified; R94.31 Abnormal electrocardiogram [ECG] [EKG]; I10 Essential (primary) hypertension; R60.0 Localized edema | CPT/HCPCS: 93005; 99203; 99214 ==

== ENCOUNTER 2022-11-11 00:32 | Outpatient (CLI) | payer MEDICARE, BC, SELFPAY ==
--- NOTE | 2022-11-11 07:00 | DI.NM_ITS ---
APPROVED REPORT Exam: Pharmacologic Patient Location: Out-Patient Room/Bed: Stress Nurse: Halle Mathur RN Ordering Provider:NBA STEWARDD, Contact Number: BMI: 27.83 Baseline Rhythm: Sinus Rhythm/Tachycardia Comment: inverted aVL, diffuse slight ST elevations Indications: CHEST PAIN Medical History Medical History: CHF, ED, Asthma, Gout, HLD, Increased triglycerides, back pain, Hx ETOH abuse Cardiac Medications: Albuterol, Simvastatin, Spironolactone Allergies: Shellfish, Horse serum proteins Cardiac Risk Factors: FHX of CAD, HTN, Hyperlipidemia, Asthma Previous Cardiac Procedures: None Pretest Chest Pain Characteristics: No chest pain Exercise History: Indeterminate Physical Disabilities: Knees, Back Lung Sounds: Clear to auscultation Heart Sounds: Regular Stress Test Details Test: Pharmacologic stress testing performed using 0.4 mg of regadenoson per 5 mL given IV over 10 s econds. Reason for pharmacologic stress test: physical limitation. Nuclear Acquisition: Rest Tc-99m/Stress Tc-99m 1 day Rest Isotope: Tc-99m Sestamibi. Dose: 11.0 Date: 11/11/2022 Injection Time: 0935 Stress Isotope: Tc-99m Sestamibi. Dose: 36.0 Date: 11/11/2022 Injection Time: 1104 HR Resting HR Supine: 94 bpm Max Heart Rate (APMHR): 145.958475 bpm Resting HR Standin bpm Target HR (85% APMHR): 123.761632 bpm Max HR Achieved: 121 bpm % of APMHR: 83.45 Recovery HR: 109 bpm BP Resting BP Supine: 144/82 mmHg Resting BP Standin/78 mmHg Max BP: 152/90 mmHg Recovery BP: 130/82 mmHg ECG Resting ECG: Sinus Rhythm/Tachycardia Ectopy: None Comment: inverted aVL, diffuse slight ST elevations Stress ECG: Sinus Tachycardia ST Change: No significant ST segment changes noted Arrhythmia: PACs, PVCs Recovery ECG: Sinus Tachycardia Recovery ST Change: No significant ST segment changes noted Recovery Arrhythmia: PACs, PVCs Clinical Rate Pressure Product: 53092 Stress ECG Conclusion 1. The resting electrocardiogram shows left axis deviation, IVCD like an atypical LBBB possible old a nterior infarct 2. Patient underwent pharmacologic stress with regadenoson 3. Peak heart rate achieved was 83% of predicted for age 4. The electrocardiographic portion of the test was nondiagnostic due to resting electrocardiographic abnormalities 5. See MPI report Stress Test Summary STAGE HR BP SpO2 Symptoms NOTES Supine 94 144/82 Standing 100 140/78 97 1 min post Lexiscan injection 110 152/90 3 min post Lexiscan injection 111 122/64 6 min post Lexiscan injection 109 130/82 96 MPI Conclusion There is normal myocardial perfusion. There is no ischemia or evidence of prior infarction EF is 40%. There is mild global hypokinesis Radiologist Interpretation Radiologist Interpretation by: Mike Hair MD Interpretation Date/Time: 11/11/2022 16:58:44
[2022-11-11] MEDS: Regadenoson 0.4 MG/5 ML SYR IVP (11:10)
== END 2022-11-11 00:52 ==
LOC: DI 00:32
PROVIDERS: PCP Family Medicine; Visit Provider Internal Medicine Cardiovascular Disease
DX: I10 Essential (primary) hypertension (principal); I50.9 Heart failure, unspecified; R07.9 Chest pain, unspecified; R94.31 Abnormal electrocardiogram [ECG] [EKG]
CPT/HCPCS: 78452; 93016; 93018; 93017; J2785

== ENCOUNTER → 2022-12-05 10:01 | Outpatient (BNVA) | payer MEDICARE, BC, SELFPAY | PROVIDERS: PCP Family Medicine; Referring Provider Family Medicine; Visit Provider Internal Medicine Cardiovascular Disease | DX: I10 Essential (primary) hypertension (principal); R94.31 Abnormal electrocardiogram [ECG] [EKG]; M54.59 Other low back pain; I50.9 Heart failure, unspecified | CPT/HCPCS: 99214; 99213 ==

== ENCOUNTER 2023-03-04 10:05 | Outpatient (CLI) | payer MEDICARE, BC, SELFPAY ==
[2023-03-04 12:30] LABS: ESR 15 mm/hr (0-20)
[2023-03-04 12:31] LABS: Abs Immature Grans 0.04 10^3/uL (0.0-0.06); Absolute Basophil Count 0.05 10^3/uL (0.0-0.2); Absolute Eosinophil Count 0.24 10^3/uL (0.0-0.7); Absolute Monocyte Count 0.72 10^3/uL (0.1-0.8); Absolute Neutrophil Count 4.71 10^3/uL (1.2-6.7); Basophils % 0.7; Eosinophils % 3.2; HCT 44.6 % (40.0-50.0); HGB 15.2 g/dL (13.5-17.5); Immature Grans % 0.5; Lymphocytes % 23.8; MCH 32.8 pg (27.0-33.0); MCHC 34.1 % (32.0-36.0); MCV 96 fL (80-95); MPV 12.1 fL (8.0-11.0); Monocytes % 9.5; Neutrophils % 62.3; Platelet Count 212 10^3/uL (130-400); RBC 4.64 10^6/uL (4.36-5.78); RDW 13.1 % (11.8-14.1); RDW-SD 46.8 fL; WBC 7.56 10^3/uL (4.4-10.8)
[2023-03-04 13:00] LABS: Anion Gap 7.7 mmol/L (3-11); BUN 12 mg/dL (7-18); CO2 29.3 mmol/L (21.0-32.0); CREATININE 0.9 mg/dL (0.70-1.30); Calcium 9.9 mg/dL (8.5-10.1); Chloride 103 mmol/L (98-107); Estimated GFR 89.07 (mL/min/1.73m2); Glucose 101 mg/dL (74-106); Potassium 4.5 mmol/L (3.5-5.1); Sodium 140 mmol/L (136-145); Uric Acid 4.1 mg/dL (3.5-7.2)
== END 2023-03-04 10:06 | disposition home or self-care (01) ==
LOC: LOS 10:06
PROVIDERS: PCP Family Medicine; Referring Provider Family Medicine; Visit Provider Family Medicine
DX: E87.1 Hypo-osmolality and hyponatremia; D64.9 Anemia, unspecified; M10.9 Gout, unspecified
CPT/HCPCS: 36415; 80048; 85652; 84550; 85025

== ENCOUNTER 2023-03-05 00:52 | Outpatient (CLI) | payer MEDICARE, BC, SELFPAY ==
--- NOTE | 2023-03-05 07:32 | DI.RAD_ITS ---
Exam(s) XR ANKLE RT COMPLETE EXAM: XR ANKLE RT COMPLETE CLINICAL HISTORY: rt ankle pain/swelling,m25.571. TECHNIQUE: 2D digital imaging was performed of the right ankle. Three images were obtained. AP, la teral and oblique views were obtained. COMPARISON: No exams were available for comparison FINDINGS: BONES: No acute fracture is present. No bony destructive lesion is seen. JOINTS: The ankle mortise is normally aligned. The joint spaces are well maintained. SOFT TISSUE: There are vascular calcifications present. There is soft tissue swelling about the ankl e particularly medially. IMPRESSION: Soft tissue swelling about the ankle but no acute fracture or dislocation. DATA REPOSITORY: RADIATION DOSE DELIVERED:
== END 2023-03-05 01:12 ==
LOC: DI 00:56
PROVIDERS: PCP Family Medicine; Visit Provider Family Medicine
DX: M25.571 Pain in right ankle and joints of right foot (principal)
CPT/HCPCS: 73610

== ENCOUNTER 2023-03-13 01:15 | Outpatient (CLI) | payer MEDICARE, BC, SELFPAY ==
[2023-03-13 13:04] LABS: C-Reactive Protein 0.41 mg/dL (0.0-0.3)
[2023-03-13 22:39] LABS: Rheumatoid Factor 14.5 IU/mL (<12.0)
[2023-03-15 07:59] LABS: Lab Add On Test DONE
[2023-03-16 09:48] LABS: Cyclic Citrullinated Peptide <2.5 U/mL (<5.0)
[2023-03-16 15:32] LABS: ANA Interpretation Positive (Negative); ANA Titer Pattern 1:160 Speckled
[2023-03-16 17:57] LABS: Lab Add On Test DONE
[2023-03-20 15:12] LABS: dsDNA Ab, IgG <12.3 IU/mL (<30.0)
== END 2023-03-13 01:16 | disposition home or self-care (01) ==
LOC: LOS 01:16
PROVIDERS: PCP Family Medicine; Visit Provider Family Medicine
DX: M19.90 Unspecified osteoarthritis, unspecified site (principal); M25.571 Pain in right ankle and joints of right foot; R41.89 Other symptoms and signs involving cognitive functions and awareness; R76.8 Other specified abnormal immunological findings in serum; I50.9 Heart failure, unspecified; M10.9 Gout, unspecified
CPT/HCPCS: 36415; 86200; 86038; 86140; 86225; 86431

== ENCOUNTER → 2023-06-05 10:13 | Outpatient (BNVA) | payer MEDICARE, BC, SELFPAY | PROVIDERS: PCP Family Medicine; Visit Provider Internal Medicine Cardiovascular Disease | DX: I11.0 Hypertensive heart disease with heart failure (principal); I50.9 Heart failure, unspecified; R94.31 Abnormal electrocardiogram [ECG] [EKG] | CPT/HCPCS: 99214 ==

== ENCOUNTER → 2023-07-28 09:35 | Outpatient (BNVA) | payer MEDICARE, BC, SELFPAY | PROVIDERS: PCP Family Medicine; Referring Provider Family Medicine; Visit Provider Surgery | DX: S81.801A Unspecified open wound, right lower leg, initial encounter (principal); X58.XXXA Exposure to other specified factors, initial encounter; M25.571 Pain in right ankle and joints of right foot | CPT/HCPCS: 99202; 99213 ==

== ENCOUNTER 2023-07-28 11:22 | Outpatient (REF) | payer MEDICARE, BC, SELFPAY ==
[2023-07-28 12:57] LABS: Abs Immature Grans 0.03 10^3/uL (0.0-0.06); Absolute Basophil Count 0.04 10^3/uL (0.0-0.2); Absolute Lymphocyte Count 1.39 10^3/uL (1.2-3.4); Absolute Monocyte Count 0.65 10^3/uL (0.1-0.8); Absolute Neutrophil Count 5.68 10^3/uL (1.2-6.7); Basophils % 0.5; Eosinophils % 1.3; HCT 44.2 % (40.0-50.0); HGB 15.1 g/dL (13.5-17.5); Immature Grans % 0.4; Lymphocytes % 17.6; MCH 32.3 pg (27.0-33.0); MCHC 34.2 % (32.0-36.0); MCV 94 fL (80-95); MPV 11.8 fL (8.0-11.0); Monocytes % 8.2; Platelet Count 227 10^3/uL (130-400); RBC 4.68 10^6/uL (4.36-5.78); RDW 12.7 % (11.8-14.1); RDW-SD 44.1 fL; WBC 7.89 10^3/uL (4.4-10.8)
[2023-07-28 12:59] LABS: ESR 29 mm/hr (0-20)
[2023-07-28 13:24] LABS: C-Reactive Protein 0.38 mg/dL (0.0-0.3)
== END 2023-07-28 11:23 | disposition home or self-care (01) ==
LOC: LBN 11:22
PROVIDERS: PCP Family Medicine; Visit Provider Podiatrist
DX: G89.29 Other chronic pain (principal); M25.50 Pain in unspecified joint; M25.571 Pain in right ankle and joints of right foot; M79.89 Other specified soft tissue disorders; B99.9 Unspecified infectious disease; M10.9 Gout, unspecified; R79.82 Elevated C-reactive protein (CRP); R70.0 Elevated erythrocyte sedimentation rate
CPT/HCPCS: 85652; 84550; 85025; 86140; 89060

== ENCOUNTER → 2023-07-28 15:27 | Outpatient (CLI) | payer MEDICARE, BC, SELFPAY ==
--- NOTE | 2023-07-28 11:45 | DI.RAD_ITS ---
Exam(s) XR FOOT LT COMPLETE EXAM: XR FOOT LT COMPLETE CLINICAL HISTORY: PAIN IN FOOT, M79.673-CHRONIC PAIN, G89.29-R ANKLE/JOINT PAIN, M25.571. TECHNIQUE: 2D digital imaging was performed of the left foot. Three images were obtained. AP, obli que and lateral views were obtained. COMPARISON: No exams were available for comparison FINDINGS: BONES: No acute fracture is present. No bony destructive lesion is seen. Hammertoe deformities of the 2nd and 3rd toes are noted. JOINTS: No dislocation present. There are degenerative changes seen at the 1st metatarsophalangeal armin int. There is a small spur C of the dorsal aspect of the metatarsal head. SOFT TISSUE: Atherosclerosis is present. IMPRESSION: Mild degenerative changes of the left foot. DATA REPOSITORY: RADIATION DOSE DELIVERED:
--- NOTE | 2023-07-28 11:45 | DI.RAD_ITS ---
Exam(s) XR FOOT RT COMPLETE EXAM: XR FOOT RT COMPLETE CLINICAL HISTORY: PAIN IN FOOT, M79.673-CHRONIC PAIN, G89.29-R ANKLE/JOINT PAIN, M25.571. TECHNIQUE: 2D digital imaging was performed of the right foot. Three images were obtained. AP, obl ique and lateral views were obtained. COMPARISON: No exams were available for comparison FINDINGS: BONES: No acute fracture is present. No bony destructive lesion is seen. Hammertoe deformities of the 2nd through 4th toes are noted. There is a small enthesophyte at the posterior calcaneus. JOINTS: No dislocation present. Degenerative changes are seen at the 1st MTP joint with a small spur at the dorsal aspect of the 1st metatarsal head. SOFT TISSUE: Atherosclerosis. IMPRESSION: Mild degenerative changes of the foot. DATA REPOSITORY: RADIATION DOSE DELIVERED:
== END ==
PROVIDERS: PCP Family Medicine; Visit Provider Podiatrist
DX: M19.072 Primary osteoarthritis, left ankle and foot; M19.071 Primary osteoarthritis, right ankle and foot
CPT/HCPCS: 99213; 73630

== ENCOUNTER → 2023-09-03 01:06 | Outpatient (CLI) | payer MEDICARE, BC, SELFPAY ==
--- NOTE | 2023-09-03 08:45 | DI.CT_ITS ---
Exam(s) CT ABD AORTA CTA W RUNOFF EXAM: CT ABD AORTA CTA W RUNOFF CLINICAL HISTORY: PERIPHERAL ARTERY DISEASE,I73.9,CLAUDICATION RT LOWER EXT. TECHNIQUE: Imaging Protocol: Axial CT angiography was performed with multi-slice acquisition and mu lti-planar and/or 3D reconstructions. CONTRAST MATERIAL: Intravenous: Omnipaque 350 Contrast volume:150 mL Oral: No COMPARISON: CT,NM,TMT NM MPI REST STRESS GRP from 11/11/2022 CR XR FOOT RT COMPLETE from 07/28/2023 FINDINGS: Vascular Structures: Abdomen and pelvis: Celiac [place]/SMA: No evidence of occlusion or significant stenosis. Mild atherosclerosis. Renal Arteries: No evidence of occlusion or significant stenosis. Mild atherosclerosis at the origins bilaterally. Aorta: No aneurysm, occlusion or significant stenosis. No dissection. Atherosclerosis. Iliac Arteries: There is atherosclerosis bilaterally. There is mild narrowing at the origins of the left internal iliac artery and the right common iliac artery. No occlusion is seen. Lower extremities: Right: Atherosclerosis is present throughout. Common Femoral: No evidence of occlusion or significant stenosis. Femoral: No evidence of occlusion or significant stenosis. Deep Femoral Artery: No evidence of occlusion or significant stenosis. Popliteal: No evidence of occlusion or significant stenosis. Knee Trifurcation: No evidence of occlusion or significant stenosis. Anterior Tibial: There is occlusion of the anterior tibial artery approximately midway down the calf with reconstitution distal to the ankle joint. Posterior Tibial: There is occlusion of the posterior tibial artery approximately midway down the desmond f. Peroneal:There is occlusion of the peroneal artery just above the level of the ankle joint. Left: Atherosclerosis is present throughout. Common Femoral: No evidence of occlusion or significant stenosis. Femoral: No evidence of occlusion or significant stenosis. Deep femoral artery: No evidence of occlusion or significant stenosis. Popliteal: No evidence ofocclusion or significant stenosis. Knee Trifurcation: No evidence of occlusion or significant stenosis. Anterior tibial: Multifocal stenosis is seen of the left anterior tibial artery. This includes a marie g segment of occlusion in the mid to distal artery. Posterior Tibial: Multifocal stenosis is seen in the distal posterior tibial artery. Peroneal: No evidence of occlusion or significant stenosis. Soft Tissues: Lung bases: No acute abnormality is seen in the lung bases. Liver: Normal density. No measurable mass. Gallbladder and biliary tract: No radiodense calculus or dilation. Pancreas: Normal density, no abnormal calcifications or inflammatory process. Spleen: Normal. Kidneys: Normal size, contour and axis. No radiodense stones or obstructive uropathy. No masses seen. Adrenal glands: No masses seen. Bladder: There is thickening of the wall of the urinary bladder. The bladder is incompletely distend ed. Reproductive organs.: The prostate gland is enlarged. Bowel: There is diverticulosis of the colon without evidence of a diverticulitis. There is no bowel wall thickening or obstruction. No evidence of appendicitis. Peritoneal cavity: There is mild haziness of the mesentery and mildly enlarged lymph nodes present. This is nonspecific and can be seen with panniculitis, bowel inflammation or neoplasm. No free air. Bones: Old healed right rib fractures are present. Age-appropriate degenerative changes are seen in the lumbar spine. Postsurgical changes are seen in the lumbar spine. Soft tissues: Unremarkable. IMPRESSION: 1. 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 2. Occlusion of the right posterior tibial artery approximately midway down the calf. 3. Occlusion of the right peroneal artery just above the level of the ankle joint. 4. Multifocal stenosis of the left anterior posterior tibial arteries. 5. Thickening of the wall of the urinary bladder. This may be due to underdistention, cystitis or ch ronic bladder outlet obstruction. 6. Enlarged prostate gland. RADIATION DOSE DELIVERED: Total DLP Total DLP DATA REPOSITORY: All CT scans at this facility are submitted to the National Radiology Data Registry (NRDR) Dose Index Registry (DIR) with the [employer] (ACR). RADIATION OPTIMIZATION: All CT scans at this facility use at least one of these dose optimization te chniques: automated exposure control; mA and/or kV adjustment per patient size (includes targeted exa ms where dose is matched to clinical indication); or iterative reconstruction.
[2023-09-03 13:45] LABS: CREATININE 0.9 mg/dL (0.70-1.30); Estimated GFR 88.51 (mL/min/1.73m2)
[2023-09-03] MEDS: Omnipaque 350 MG/ML 500 ML BTL-Imaging package IJ (14:04)
[2023-09-03] MEDS: Normal Saline - Diluent 50 ML VIAL IJ (14:04)
[2023-09-03] MEDS: Normal Saline Flush 10 ML SYR IVP (14:05)
== END ==
PROVIDERS: PCP Family Medicine; Visit Provider Podiatrist
DX: I10 Essential (primary) hypertension (principal); I73.9 Peripheral vascular disease, unspecified
CPT/HCPCS: 75635; 82565

== ENCOUNTER → 2023-09-10 14:25 | Outpatient (BNVA) | payer MEDICARE, BC, SELFPAY | PROVIDERS: PCP Family Medicine; Referring Provider Family Medicine; Visit Provider Podiatrist | DX: M25.571 Pain in right ankle and joints of right foot (principal); R76.8 Other specified abnormal immunological findings in serum; I73.9 Peripheral vascular disease, unspecified | CPT/HCPCS: 99213 ==

== ENCOUNTER → 2023-10-22 13:44 | Outpatient (BNVA) | payer MEDICARE, BC, SELFPAY | PROVIDERS: PCP Family Medicine; Referring Provider Family Medicine; Visit Provider Podiatrist | DX: M25.571 Pain in right ankle and joints of right foot (principal); R09.89 Other specified symptoms and signs involving the circulatory and respiratory systems; R60.0 Localized edema | CPT/HCPCS: 99214 ==

== ENCOUNTER → 2023-11-12 02:16 | Outpatient (CLI) | payer MEDICARE, BC, SELFPAY ==
--- NOTE | 2023-11-12 14:08 | DI.MRI_ITS ---
Exam(s) MR LOWER JOINT RT WO EXAM: MR LOWER JOINT RT WO CLINICAL HISTORY: ? talocalcaneal coalition,rt ankle pain, m25.571 TECHNIQUE: Multiplanar multisequence MRI was performed without intravenous contrast. COMPARISON: CR XR FOOT RT COMPLETE from 07/28/2023 FINDINGS: BONES/JOINTS: No fracture or contusion pattern. There is no evidence of a talocalcaneal coalition. T he talar dome is smooth. The ankle mortise is maintained. No joint effusion is present. LIGAMENTS: The tibiofibular and calcaneofibular ligaments are intact. The talofibular ligaments are i ntact. The deltoid ligament is intact. The syndesmosis is unremarkable. Sinus tarsi is normal. MUSCULOTENDINOUS STRUCTURES: Achilles tendon: Unremarkable. Plantar fascia: Unremarkable. Anterior Extensor tendons: Unremarkable. Posterior Tibialis: Unremarkable. Flexor Digitorum longus: Unremarkable. Flexor Hallucis longus: Unremarkable. Peroneus longus: Unremarkable. Peroneus brevis:Unremarkable. SOFT TISSUES: There is mild edema seen in the soft tissues around ankle. No focal fluid collection i s seen to suggest an abscess. There is mild diffuse muscular fatty atrophy. OTHER FINDINGS: None. IMPRESSION: 1. No evidence of a talocalcaneal coalition. 2. No evidence of a ligament or tendon tear. 3. Mild diffuse muscular fatty atrophy. 4. Mild edema in the soft tissues which may represent a cellulitis. No focal fluid collection is see n to suggest an abscess. DATA REPOSITORY:
== END ==
PROVIDERS: PCP Family Medicine; Visit Provider Podiatrist
DX: M25.571 Pain in right ankle and joints of right foot (principal); M62.571 Muscle wasting and atrophy, not elsewhere classified, right ankle and foot; M79.89 Other specified soft tissue disorders
CPT/HCPCS: 73721

== ENCOUNTER 2024-03-29 11:23 | Emergency (ER) | payer MEDICARE, BC, SELFPAY ==
[2024-03-29 11:27] VITALS: BP 131/99; PULSE 151; RESP 22; O2SAT 97
--- NOTE | 2024-03-29 11:30 | RT.EKG_ITS ---
APPROVED REPORT Exam: Resting ECG Reason for Exam: Abd/Stomach Pain Patient Location: E HR:151 bpm ECG Measurements Heart Rate 151 AXIS NM [id number] P 0 QRSd 108 QRS -87 QT 321 T 71 QTc 508 Conclusion SVT 151 no stemi
--- NOTE | 2024-03-29 11:30 | RT.EKG_ITS ---
APPROVED REPORT Exam: Resting ECG Reason for Exam: SOB Patient Location: E HR:104 bpm ECG Measurements Heart Rate 104 AXIS RI [id number] P [id number] QRSd 108 QRS -88 QT 385 T 84 QTc 507 Conclusion Atrial fibrillation 104 no stemi
--- NOTE | 2024-03-29 11:45 | W.EDPROG ---
Date of service: 03/29/24 Time of Service: 11:45 Medical Decision Making Patient evaluated in conjunction with the LEAD [employer] ENGINEER. A [id number] evaluation was performed by me secondary to medical complexity. The patient presented with abdominal pain, but was found to have significant elevation in heart rate. Initial EKG was concerning for possible SVT versus a flutter. He received 2 doses of IV adenosine, that did not improve his heart rate. On the brief. As of heart rate slowed down after the adenosine, I was able to appreciate more of an atrial dysrhythmia, so I switched to diltiazem. He was given diltiazem IV push which resulted in rate control. This does appear to be a new diagnosis of the acute onset A-fib. I reviewed the medical record. No significant derangement in his CBC. His CMP is concerning for significant elevation in BNP. The chest abdomen pelvis were imaged to evaluate for aortic dissection, mesenteric ischemia or other acute abnormality. These did not seem to be present. There was some cholelithiasis, this could be a cause of his abdominal pain. Otherwise no evidence of an acute intra-abdominal process. Given his new onset cardiac dysrhythmia, for rate control and need for anticoagulation, it was recommended to the patient that he should be admitted to the hospital. At this time he is elected to leave AGAINST MEDICAL ADVICE. Quality:SDOH Health Related Social Needs: No Data to Display Discharge Plan Disposition Patient Disposition: Against Medical Advice Discharge Details Clinical Impression: CHF (congestive heart failure), New onset a-fib, Abdominal pain, Bladder wall thickening Primary Care Provider: Ludwin Heaton ED Provider: Kasia Nesbitt Home Meds and New Rx's Prescriptions: New metoprolol tartrate 25 mg tablet 25 mg PO BID 14 Days Qty: 28 0RF Eliquis 5 mg tablet 5 mg PO BID 30 Days Qty: 60 0RF Continued albuterol sulfate [Ventolin HFA] 90 mcg/actuation HFA aerosol inhaler 2 puff IH Q6H PRN (Reason: bronchospasm) Qty: 6.7 5RF allopurinol 300 mg tablet 300 mg PO DAILY Qty: 90 3RF ipratropium-albuterol 0.5 mg-3 mg(2.5 mg base)/3 mL solution for nebulization 3 ml IH QID PRN (Reason: shortness of breath) Qty: 180 11RF bumetanide 1 mg tablet 1 mg PO DAILY Qty: 30 2RF Hold Instructions: Changed by Provider (RISA) nebulizers [Mini Plus Nebulizer] 1 EACH misc 1 ea Miscellaneous QID Qty: 1 0RF simvastatin 20 mg tablet 20 mg PO QPM Qty: 90 3RF losartan 25 mg tablet 25 mg PO DAILY Qty: 90 3RF saw palmetto-pumpkin seed oil 160 MG capsule 5 cap PO DAILY Patient Comments: 01/22 Discharge Instructions Instructions: A-fib (Atrial Fibrillation) (ED) Additional Instructions: Please call your primary care provider first thing in the morning to schedule follow-up appointment. I would like you to discuss your new onset A-fib with rapid heart rate, lower abdominal pain, and the incidental finding of bladder wall thickening that indicates need for urology follow-up. I have prescribed you 2 medications to help treat your new onset A-fib. One is Eliquis, a blood thinner. This will help prevent stroke. Please note that this increases your risk of bleeding, be sure to keep an eye out for black/tarry/sticky stools and come to the emergency department if you develop any uncontrollable bleeding, head injury, or any potentially other injuries for evaluation. The other is metoprolol, a rate controlling medication to help keep your heart rate from becoming very elevated like it was today. Return to emergency care if you develop new chest pain, dizziness, shortness of breath, severe belly pain, uncontrollable vomiting/inability to eat, blood in your stool, or if you are very worried and need to be rechecked again immediately Referrals: Ludwin Heaton MD [Primary Care Provider] - Discharge Data Discharge Date/Time-TO BE ENTERED AT DEPARTURE: 03/29/24 16:15
[2024-03-29] MEDS: Adenosine 6 MG/2 ML VIAL IVP (11:55)
[2024-03-29 12:06] VITALS: BP 105/53; PULSE 104; RESP 20; O2SAT 97
[2024-03-29 12:07] VITALS: BP 105/53; PULSE 104; RESP 20; O2SAT 97
[2024-03-29 12:10] VITALS: BP 144/107; PULSE 150
[2024-03-29] MEDS: dilTIAZem 25 MG/5 ML VIAL IVP (12:10)
[2024-03-29 12:11] LABS: Abs Immature Grans 0.04 10^3/uL (0.0-0.06); Absolute Basophil Count 0.05 10^3/uL (0.0-0.2); Absolute Eosinophil Count 0.07 10^3/uL (0.0-0.7); Absolute Lymphocyte Count 0.93 10^3/uL (1.2-3.4); Absolute Monocyte Count 0.92 10^3/uL (0.1-0.8); Absolute Neutrophil Count 6.71 10^3/uL (1.2-6.7); Basophils % 0.6 %; Eosinophils % 0.8 %; HCT 43.6 % (40.0-50.0); HGB 14.6 g/dL (13.5-17.5); Immature Grans % 0.5 %; Lymphocytes % 10.7 %; MCH 31.8 pg (27.0-33.0); MCHC 33.5 % (32.0-36.0); MCV 95 fL (80-95); MPV 10.9 fL (8.0-11.0); Monocytes % 10.6 %; Neutrophils % 76.8 %; Platelet Count 203 10^3/uL (130-400); RBC 4.59 10^6/uL (4.36-5.78); RDW 13.6 % (11.8-14.1); RDW-SD 47.5 fL; WBC 8.72 10^3/uL (4.4-10.8)
[2024-03-29 12:14] LABS: Lactate 1.1 mmol/L (0.6-1.4)
--- NOTE | 2024-03-29 12:15 | DI.CT_ITS ---
Exam(s) CT THORAX ABD/PEL CTA EXAM: CT THORAX ABD/PEL CTA CLINICAL HISTORY: LLQ pain, new onset afib. TECHNIQUE: Imaging Protocol: Axial CT angiography was performed with multi-slice acquisition and m ulti-planar and/or 3D reconstructions. CONTRAST MATERIAL: Intravenous: Omnipaque 350 contrast volume:100 mL Oral: No COMPARISON: CT CT ABD AORTA CTA W RUNOFF from 09/03/2023 FINDINGS: CHEST: Tracheobronchial tree: Patent where visualized. Pulmonary parenchyma: Atelectatic changes are seen in the dependent portions of the lung bases. No f ocal consolidating infiltrates are seen. No architectural distortion. Pulmonary Arteries: The bolus was timed for optimal aortic opacification. Suboptimal opacification o f the pulmonary arteries is noted. No large central pulmonary embolus is seen. Mediastinum and Dodie: No dominant adenopathy or fluid collection. The esophagus is unremarkable. Visualized thyroid: Unremarkable. Pleura: Small bilateral pleural effusions are present. No pneumothorax is present. Heart: The heart is not dilated. Coronary artery calcifications are present. There is a small perica rdial effusion present. Aorta: Thoracic aorta non-dilated. No evidence of dissection. Atherosclerotic calcification is prese nt. Soft Tissues: Unremarkable. Bones: Within normal limits for the patient's age.No acute nondisplaced rib fractures are identified. ABDOMEN AND PELVIS: Abdomen: Celiac axis/mesenteric arteries: No evidence of occlusion or significant stenosis. Mild atherosclero sis at the origin of the celiac axis and the superior mesenteric artery but no significant stenosis. Renal Arteries: No evidence of occlusion or significant stenosis. Atherosclerosis at the origins of the renal arteries but no significant stenosis. Aorta: No evidence of occlusion or significant stenosis. No aneurysm or dissection. Atherosclerosi s is present. Pelvis: Iliac Arteries: No evidence of occlusion or significant stenosis. Atherosclerosis is present but no significant stenosis. No evidence of an acute dissection. Common Femoral Arteries: No evidence of occlusion or significant stenosis. Atherosclerotic calcific ation is present but no significant stenosis. No evidence of an acute dissection. ABDOMEN: Liver: The liver measures 18 cm long. There is decreased attenuation of the liver suggesting hepatic steatosis. No measurable mass. Gallbladder and Biliary Tract: Small stones are seen in the gallbladder. There is mild stranding shira und the gallbladder. No biliary ductal dilatation. Pancreas: Normal density, no abnormal calcifications or inflammatory process. Spleen: Normal. Adrenals: Stable nodularity of the adrenal glands. Kidneys: Normal size, contour and axis. No radiodense stones or obstructive uropathy. No masses seen. Bowel: There is diverticulosis of the colon without evidence of bowel wall thickening to suggest acut e diverticulitis. There is no evidence of bowel obstruction or bowel wall thickening. No evidence o f appendicitis. Peritoneal Cavity: There is a small amount of perihepatic and perisplenic ascites. No free air.There is mesenteric edema present. Lymph Nodes: Within normal limits. Bones: Within normal limits for the patient's age. Soft Tissues: Unremarkable. PELVIS: Bladder: There is diffuse thickening of the wall of the urinary bladder. Reproductive Organs: The prostate gland is enlarged. Lymph Nodes: Within normal limits. Bones: Within normal limits for the patient's age. IMPRESSION: 1. No evidence of thoracic aortic aneurysm or dissection. 2. Small bilateral pleural effusions and small pericardial effusion. 3. Hepatomegaly with findings suggestive of hepatic steatosis. 4. Cholelithiasis. Mild stranding around the gallbladder. No biliary ductal dilatation. If there i s concern for acute cholecystitis, gallbladder ultrasound is recommended. 5. Colonic diverticulosis without evidence to suggest acute diverticulitis. 6. Small amount of perihepatic and perisplenic ascites and mesenteric edema. 7. Prostatic gland enlargement. Diffuse thickening of the wall of the urinary bladder which may repr esent cystitis or sequelae of bladder outlet obstruction. Neoplasm cannot be entirely excluded. Ple ase correlate clinically. RADIATION DOSE DELIVERED: 1,182.38mGy.cm Total DLP DATA REPOSITORY: All CT scans at this facility are submitted to the National Radiology Data Registry (NRDR) Dose Index Registry (DIR) with the [employer] (ACR). RADIATION OPTIMIZATION: All CT scans at this facility use at least one of these dose optimization te chniques: automated exposure control; mA and/or kV adjustment per patient size (includes targeted exa ms where dose is matched to clinical indication); or iterative reconstruction.
--- NOTE | 2024-03-29 12:34 | W.ED.GENAD ---
Discharge Plan Disposition Patient Disposition: Against Medical Advice Discharge Details Clinical Impression: CHF (congestive heart failure), New onset a-fib, Abdominal pain, Bladder wall thickening Primary Care Provider: Ludwin Heaton ED Provider: Kasia Nesbitt Home Meds and New Rx's Prescriptions: New metoprolol tartrate 25 mg tablet 25 mg PO BID 14 Days Qty: 28 0RF Eliquis 5 mg tablet 5 mg PO BID 30 Days Qty: 60 0RF Continued albuterol sulfate [Ventolin HFA] 90 mcg/actuation HFA aerosol inhaler 2 puff IH Q6H PRN (Reason: bronchospasm) Qty: 6.7 5RF allopurinol 300 mg tablet 300 mg PO DAILY Qty: 90 3RF ipratropium-albuterol 0.5 mg-3 mg(2.5 mg base)/3 mL solution for nebulization 3 ml IH QID PRN (Reason: shortness of breath) Qty: 180 11RF bumetanide 1 mg tablet 1 mg PO DAILY Qty: 30 2RF Hold Instructions: Changed by Provider (DME) nebulizers [Mini Plus Nebulizer] 1 EACH misc 1 ea Miscellaneous QID Qty: 1 0RF simvastatin 20 mg tablet 20 mg PO QPM Qty: 90 3RF losartan 25 mg tablet 25 mg PO DAILY Qty: 90 3RF saw palmetto-pumpkin seed oil 160 MG capsule 5 cap PO DAILY Patient Comments: 01/22 Discharge Instructions Instructions: A-fib (Atrial Fibrillation) (ED) Additional Instructions: Please call your primary care provider first thing in the morning to schedule follow-up appointment. I would like you to discuss your new onset A-fib with rapid heart rate, lower abdominal pain, and the incidental finding of bladder wall thickening that indicates need for urology follow-up. I have prescribed you 2 medications to help treat your new onset A-fib. One is Eliquis, a blood thinner. This will help prevent stroke. Please note that this increases your risk of bleeding, be sure to keep an eye out for black/tarry/sticky stools and come to the emergency department if you develop any uncontrollable bleeding, head injury, or any potentially other injuries for evaluation. The other is metoprolol, a rate controlling medication to help keep your heart rate from becoming very elevated like it was today. Return to emergency care if you develop new chest pain, dizziness, shortness of breath, severe belly pain, uncontrollable vomiting/inability to eat, blood in your stool, or if you are very worried and need to be rechecked again immediately Referrals: Ludwin Heaton MD [Primary Care Provider] - [facility] General Date/Time Provider Initiated Documentation: 03/29/24 11:44. [facility] Narrative: Rocco is a 78-year-old male with history of HTN, CHF, HLD, T2 DM, asthma, and PAD who presents emergency department today for evaluation of suddenly worsening left lower quadrant pain. He reports that pain started 2 or 3 weeks ago, says it has been accompanied by fatigue, chills, and decreased appetite. He initially thought he was backed up, took some laxatives without improvement in pain (has been having multiple soft stools daily). He is he denies fever/chills, dizziness other than an episode of tunnel vision while in urgent care today, chest pain, shortness of breath, palpitations, extremity weakness, vomiting, black/tarry stools or bloody stools. He was seen in urgent care today, found to be tachycardic, sent to the emergency department for evaluation. Denies history of A-fib. No history of stroke, major bleeding, cancer, or NSAID use. Related Data Home Medications Medication Instructions Recorded Confirmed saw palmetto-pumpkin seed oil 160 5 cap PO DAILY 08/11/14 03/29/24 mg capsule nebulizers (Mini Plus Nebulizer #1 ea 03/10/18 01/13/24 [facility] [place]) simvastatin 20 mg tablet 20 mg PO QPM #90 tabs 03/23/23 03/29/24 albuterol sulfate 90 mcg/actuation 2 puff inhalation Q6H PRN 01/13/24 03/29/24 aerosol inhaler (Ventolin HFA) bronchospasm #6.7 grams allopurinol 300 mg tablet 300 mg PO DAILY #90 tabs 01/13/24 03/29/24 bumetanide 1 mg tablet 1 mg PO DAILY #30 tabs 01/13/24 03/29/24 ipratropium 0.5 mg-albuterol 3 mg 3 ml inhalation QID PRN shortness 01/13/24 03/29/24 (2.5 mg base)/3 mL nebulization of breath #180 mL soln losartan 25 mg tablet 25 mg PO DAILY #90 tabs 02/09/24 03/29/24 apixaban 5 mg tablet (Eliquis) 5 mg PO BID 30 days #60 tabs 03/29/24 metoprolol tartrate 25 mg tablet 25 mg PO BID 14 days #28 tabs 03/29/24 Previous Rx's Medication Instructions Recorded nebulizers (Mini Plus Nebulizer #1 ea 03/10/18 [facility] [place]) simvastatin 20 mg tablet 20 mg PO QPM #90 tabs 03/23/23 albuterol sulfate 90 mcg/actuation 2 puff inhalation Q6H PRN 01/13/24 aerosol inhaler (Ventolin HFA) bronchospasm #6.7 grams allopurinol 300 mg tablet 300 mg PO DAILY #90 tabs 01/13/24 bumetanide 1 mg tablet 1 mg PO DAILY #30 tabs 01/13/24 ipratropium 0.5 mg-albuterol 3 mg 3 ml inhalation QID PRN shortness 01/13/24 (2.5 mg base)/3 mL nebulization of breath #180 mL soln losartan 25 mg tablet 25 mg PO DAILY #90 tabs 02/09/24 apixaban 5 mg tablet (Eliquis) 5 mg PO BID 30 days #60 tabs 03/29/24 metoprolol tartrate 25 mg tablet 25 mg PO BID 14 days #28 tabs 03/29/24 Allergies Allergy/AdvReac Type Severity Reaction Status Date / Time shellfish derived Allergy Severe Anaphylaxsi Verified 03/29/24 14:11 s Opioids - Morphine Analogues AdvReac Severe nausea and Verified 03/29/24 14:11 vomiting buprenorphine AdvReac Intermediate Nausea Verified 03/29/24 14:11 spironolactone AdvReac Intermediate Stomach Verified 03/29/24 14:11 pain HORSE SERUM PROTEINS Allergy Intermediate Nasal Uncoded 03/29/24 14:11 congestion General Stated Complaint: Abd Prob KASSIDY: 3 Review of Systems Narrative: see HPI Exam Const General: cooperative, healthy appearing, no acute distress, well developed and well groomed Nutritional Appearance: average body habitus Neck Neck: normal visual inspection Resp Effort & Inspection: normal respiratory effort and able to speak in complete sentences Auscultation: clear to auscultation bilaterally Cardio Jugular venous pressure: no JVD Rate: regular rate Rhythm: regular rhythm Pulses: radial pulses present GI Inspection: normal to inspection, no abdominal wall ecchymosis, no edema, non-distended and no visible pulsation Palpation: soft and tender in the LLQ Extrem General: pedal edema bilaterally (mild) Course Vital Signs Vital signs: Vital Signs Pulse 151 H 03/29/24 11:27 Respiratory Rate 22 03/29/24 11:27 Blood Pressure 131/99 H 03/29/24 11:27 Pulse Oximetry 97 03/29/24 11:27 Pulse 150 H 03/29/24 12:10 Respiratory Rate 20 03/29/24 12:07 Respiratory Effort Normal 03/29/24 11:31 Blood Pressure 144/107 H 03/29/24 12:10 Blood Pressure Position Sitting 03/29/24 12:07 Pulse Oximetry 97 03/29/24 12:07 Oxygen Delivery Method Room Air 03/29/24 12:07 Oxygen Flow Rate 0 03/29/24 12:06 Pain Level 4 03/29/24 12:07 Lab/Test Results Lab/Test Results: Laboratory Tests Range/Units 03/29/24 11:42 WBC (4.4-10.8) 10^3/uL 8.72 RBC (4.36-5.78) 10^6/uL 4.59 Hgb (13.5-17.5) g/dL 14.6 Hct (40.0-50.0) % 43.6 MCV (80-95) fL 95 MCH (27.0-33.0) pg 31.8 MCHC (32.0-36.0) % 33.5 RDW (11.8-14.1) % 13.6 Plt Count (130-400) 10^3/uL 203 MPV (8.0-11.0) fL 10.9 Immature Gran % % 0.5 Neutrophils % % 76.8 Lymphocytes % % 10.7 Monocytes % % 10.6 Eosinophils % % 0.8 Basophils % % 0.6 Nucleated RBC % (0.0-0.3) % 0.0 Absolute Neutrophils (1.2-6.7) 10^3/uL 6.71 H Absolute Lymphocytes (1.2-3.4) 10^3/uL 0.93 L Absolute Monocytes (0.1-0.8) 10^3/uL 0.92 H Absolute Eosinophils (0.0-0.7) 10^3/uL 0.07 Absolute Basophils (0.0-0.2) 10^3/uL 0.05 Medical Decision Making Rocco is a 78-year-old male with history of HTN, CHF, HLD, T2 DM, asthma, and PAD who presents emergency department today for evaluation of suddenly worsening left lower quadrant pain. He reports that pain started 2 or 3 weeks ago, says it has been accompanied by fatigue, chills, and decreased appetite. He initially thought he was backed up, took some laxatives without improvement in pain (has been having multiple soft stools daily). He is he denies fever/chills, dizziness other than an episode of tunnel vision while in urgent care today, chest pain, shortness of breath, palpitations, extremity weakness, vomiting, black/tarry stools or bloody stools. He was seen in urgent care today, found to be tachycardic, sent to the emergency department for evaluation. Denies history of A-fib. No history of stroke, major bleeding, cancer, or NSAID use. Physical exam remarkable for significant tachycardia, heart rate in the 150s. Patient appears anxious, uncomfortable. Easy work of breathing: Sounds clear bilaterally. No obvious JVD. Abdomen soft, nondistended, tender to palpation in the left lower quadrant. No rigidity or guarding. DDx includes but is not limited to: Diverticulitis, mesenteric ischemia, bowel obstruction, neoplasm, ACS, A-fib with RVR, SVT, electrolyte imbalance, dehydration I independently interpreted the following tests: EKG upon arrival significant for SVT, rate 151. CBC, BMP, lactate, magnesium, TSH, UA, and initial troponin all reassuring. Bilirubin slightly elevated at 1.4, alk phos 201. BNP very elevated at 3391. Troponins negative x 2 1200: Attempted cardioversion x 2 with adenosine 6 mg and 12 mg without success. 25 mg diltiazem given with heart rate returned to the low 100s. CTA chest/abdomen/pelvis reassuring, only mild bilateral pleural effusions and small pericardial effusion noted. Prostate is noted to be enlarged with diffuse thickening of the urinary bladder, no evidence of UTI. Neoplasm cannot be entirely excluded and recommend follow-up with PCP for further evaluation with urology referral. Patient declined opioid pain medication, Tylenol given with good relief of symptoms. Unclear etiology of abdominal pain, did resolve fully with Tylenol. Patient does report he has extensive bloating and decreased appetite. Recommend follow-up with general surgery for colonoscopy, he says that he is not interested in having one done and that he has discussed with his PCP before. [id number] score 5, representing 7.2% stroke risk per year and 10% risk of stroke/TIA/systemic embolism. HAS-BLED score is 2 point, indicating between 2 and 4% risk of major bleeding with anticoagulation. Strongly advised inpatient admission for further evaluation into new onset A-fib with elevated BNP. Rocco would not like to pursue this option, says he has to get home to his dog. He did allow for his final troponin to be drawn, however would not like to wait for the results (these were available before discharge) 1.? I explained the current situation and condition to the patient. 2.? I explained the recommended treatment for this condition - inpatient admission for further workup and to because of new onset A-fib and to initiate anticoagulation 3.? I explained the risk of not having the recommended treatment -potential for fatal arrhythmia and /potential loss of life/permanent disability/loss of lifestyle 4.? The patient understands this information has no questions, and repeated back this information. 5.? The patient states that they need to leave and intends to follow-up with outpatient workup 6.? Mental status is lucid and the patient has decision-making capacity. 7.? Patient is leaving AMA with Eliquis prescription, PCP follow-up, and cardiology referral/follow-up. Unclear etiology of new onset A-fib. BNP is elevated, concerning for CHF though no signs of pulmonary vascular congestion noted on CTA. Unclear etiology of abdominal pain, workup today was reassuring with no obvious signs. Possible ischemia due to A-fib w/ RVR of unknown duration. Will initiate Eliquis 5 mg twice daily, recommend follow-up with cardiology and PCP for further evaluation. Strongly advised outpatient colonoscopy and urology follow-up. Reviewed red flags indicate need for return to emergency care. Quality:SDOH Health Related Social Needs: No Data to Display PFSH All Active Problems (Updated 03/29/24 @ 15:47 by Kasia Lambert) Bladder wall thickening (Acute) Abdominal pain (Acute) New onset a-fib (Acute) CRPS (complex regional pain syndrome) type I of lower limb (Acute) Diabetes mellitus with diabetic polyneuropathy (Acute) Claudication of right lower extremity (Acute) Septic arthritis of right ankle (Acute) PAD (peripheral artery disease) (Acute) Chronic foot pain (Acute) Positive MIKE (antinuclear antibody) (Acute) Rheumatoid factor positive (Acute) Ankle pain, right (Acute) Hypertension (Chronic) Abnormal electrocardiogram (Acute) Right wrist pain (Acute) CHF (congestive heart failure) (Chronic) Hypertriglyceridemia (Acute) Elevated blood pressure reading without diagnosis of hypertension (Acute) Erectile dysfunction (Acute) Asthma (Acute 06/22/13) Gout (Acute) Joint pain (Acute 06/22/13) Status post carpal tunnel release (Acute) Status post laminectomy (Acute 06/11/16) Right leg swelling (Acute) likely venous insuffi Tick bite (Acute) no sign of disease Back pain (Chronic) deteriorated ?related to fall 6 months ago Knee pain (Acute) Hyperlipidemia with target LDL less than 130 (Acute 06/22/13) Hand joint pain (Acute 06/22/13) Chronic bilateral low back pain without sciatica (Acute 06/11/16) Benign prostatic hyperplasia (Acute 06/22/13) Medical History Asthma Hyperlipidemia Gout Surgical History Open Carpal Tunnel release Neck ortho surgery (09/17/15) LUMBAR SURGERY 12/30/16- [facility] Family History Sister , AGE 72 Diabetes Mother , AGE 94 Hyperlipidemia Father , 64 Essential hypertension Stroke Lung cancer Brother No problems noted. 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
[2024-03-29 12:53] LABS: NT-proBNP 3391 pg/mL (<300)
[2024-03-29] MEDS: ACETAMINOPHEN 1,000 MG/100 ML BTL 400 MG IVPB (12:55)
[2024-03-29 12:56] LABS: ALT 49 U/L (16-63); AST 45 U/L (15-37); Albumin 3.9 g/dL (3.4-5.0); Alkaline Phosphatase 201 U/L (46-116); Anion Gap 12.2 mmol/L (3-11); BUN 14 mg/dL (7-18); Bilirubin, Total 1.4 mg/dL (0.2-1.0); CO2 23.8 mmol/L (21.0-32.0); CREATININE 0.9 mg/dL (0.70-1.30); Calcium 8.9 mg/dL (8.5-10.1); Chloride 102 mmol/L (98-107); Estimated GFR 88.51 (mL/min/1.73m2); Glucose 115 mg/dL (74-106); Potassium 4.4 mmol/L (3.5-5.1); Sodium 138 mmol/L (136-145); TSH (W/Ref FT4) 2.52 uIU/mL (0.36-3.74); Total Protein 7.3 g/dL (6.4-8.2); Troponin I < 50 ng/L (< or =60)
[2024-03-29] MEDS: Omnipaque 350 MG/ML 100 ML BTL IJ (13:38)
[2024-03-29] MEDS: Normal Saline - Diluent 50 ML VIAL IJ (13:40)
[2024-03-29 14:13] VITALS: BP 151/98; PULSE 108; RESP 18; O2SAT 99
[2024-03-29 15:12] LABS: Bilirubin Negative (Negative); Blood Negative (Negative); Clarity Clear (Clear); Glucose Negative (Negative); Ketones Trace mg/dL (Negative); Leukocyte Esterase Negative (Negative); Nitrite Negative (Negative); Specific Gravity <= 1.005 (1.005-1.025); Urobilinogen 0.2 mg/dL (Up to 0.2); pH 5.5 (5-8)
--- NOTE | 2024-03-29 15:16 | NUR.NOTE ---
Referral given to Looper Fixer to assist Pt with setting up an appointment with Cardiology for New Onset AFIB as soon as possible. Referral faxed to [facility] for Evaluation of Belly Pain and Colonoscopy as soon as possible.
[2024-03-29 15:57] LABS: Troponin I < 50 ng/L (< or =60)
[2024-03-29] MEDS: Apixaban 5 MG TAB PO (16:11)
[2024-03-29 16:12] VITALS: BP 151/98; PULSE 108; RESP 18; TEMP 36.6; O2SAT 99
--- NOTE | 2024-04-04 15:59 | NUR.NOTE ---
DI called stating that the patient's daughter is calling asking about an Echo being ordered. I reviewed the provider note and discharge and did not find any reference to an Echo. They will refer them to their PCP or Cardiology. Nursing Note:
== END 2024-03-29 16:15 | disposition left against medical advice (07) ==
PROVIDERS: Emergency Medicine; Emergency Provider Nurse Practitioner Family; PCP Family Medicine
DX: R10.32 Left lower quadrant pain (principal); R06.02 Shortness of breath; I48.91 Unspecified atrial fibrillation; I11.0 Hypertensive heart disease with heart failure; I50.9 Heart failure, unspecified; E11.40 Type 2 diabetes mellitus with diabetic neuropathy, unspecified; I73.9 Peripheral vascular disease, unspecified; J45.909 Unspecified asthma, uncomplicated; E78.5 Hyperlipidemia, unspecified
CPT/HCPCS: 00123; 71275; 80053; 93005; 96365; 96366; 96375; 99285; 74174; 81003; 83605; 83735; 83880; 84443; 84484; 85025; 93010; 99284; J0131; J0153; J3490

== ENCOUNTER 2024-04-05 11:12 | Inpatient (IN) | payer MEDICARE, BC, SELFPAY ==
[2024-04-05] VITALS (61 sets, daily range): BP systolic 101–147; BP diastolic 55–119; PULSE 48–148; RESP 12–29; TEMP 36.6–37; O2SAT 82–99
--- NOTE | 2024-04-05 11:00 | RT.EKG_ITS ---
APPROVED REPORT Exam: Resting ECG Reason for Exam: chest pain, sob Patient Location: E HR:98 bpm ECG Measurements Heart Rate 98 AXIS NH [id number] P [id number] QRSd 106 QRS 268 QT 389 T 38 QTc 497 Conclusion Atrial flutter with predominant 3:1 AV block...A-rate 294, multiple Ps Anterolateral infarct, age indeterminate...Q >35mS, flat/neg T, V3-V6,I,aVL
--- NOTE | 2024-04-05 11:24 | ED.GENADUL_ITS ---
Discharge Plan Discharge Details Chief Complaint: Chest Pain Primary Care Provider: Ludwin Heaton ED Provider: Marcus Gamble Home Meds and New Rx's Prescriptions: No Action albuterol sulfate [Ventolin HFA] 90 mcg/actuation HFA aerosol inhaler 2 puff IH Q6H PRN (Reason: bronchospasm) Qty: 6.7 5RF allopurinol 300 mg tablet 300 mg PO DAILY Qty: 90 3RF ipratropium-albuterol 0.5 mg-3 mg(2.5 mg base)/3 mL solution for nebulization 3 ml IH QID PRN (Reason: shortness of breath) Qty: 180 11RF (DME) nebulizers [Mini Plus Nebulizer] 1 EACH misc 1 ea Miscellaneous QID Qty: 1 0RF simvastatin 20 mg tablet 20 mg PO QPM Qty: 90 3RF losartan 25 mg tablet 25 mg PO DAILY Qty: 90 3RF saw palmetto-pumpkin seed oil 160 MG capsule 5 cap PO DAILY Patient Comments: 01/22 metoprolol tartrate 25 mg tablet 25 mg PO BID 14 Days Qty: 28 0RF Eliquis 5 mg tablet 5 mg PO BID 30 Days Qty: 60 0RF HPI General Date/Time Provider Initiated Documentation: 04/05/24 11:13 . HPI Narrative: 78 y/o M presents to ED today with a chief complaint of chest pain and suprapubic/scrotal pain since at least last night. Patient was seen here on 03/29/24 and diagnosed with new onset atrial fibrillation- started on metoprolol and Eliquis but has been noncompliant with this medicines for the past 2 days- states he didn't like they way they make him feel and was questioning if they were the cause of his mild suprapubic/scrotal pain. Patient was recommended for admission but did not want to stay as an in-patient. Has not received an ECHO or stress test yet, has not seen Cardiology yet. Per EMS on arrival they found him in an irregular rhythm in the 150s, gave 5mg Lopressor IV x2 en route with rate control to 90s. Patient states hes had mild chest discomfort since at least last night, states he has had worsening scrotal edema and swelling. Patients' medical history: Asthma, hyperlipidemia, gout, new onset A-fib, T2DM, claudication of right lower extremity, PAD, CHF, asthma, BPH. Family and social history: noncontributory. Related Data Home Medications Medication Instructions Recorded Confirmed saw palmetto-pumpkin seed oil 160 5 cap PO DAILY 08/11/14 04/05/24 mg capsule nebulizers (Mini Plus Nebulizer #1 ea 03/10/18 04/05/24 [facility] [place] simvastatin 20 mg tablet 20 mg PO QPM #90 tabs 03/23/23 04/05/24 albuterol sulfate 90 mcg/actuation 2 puff inhalation Q6H PRN 01/13/24 04/05/24 aerosol inhaler (Ventolin HFA) bronchospasm #6.7 grams allopurinol 300 mg tablet 300 mg PO DAILY #90 tabs 01/13/24 04/05/24 ipratropium 0.5 mg-albuterol 3 mg 3 ml inhalation QID PRN shortness 01/13/24 04/05/24 (2.5 mg base)/3 mL nebulization of breath #180 mL soln losartan 25 mg tablet 25 mg PO DAILY #90 tabs 02/09/24 04/05/24 apixaban 5 mg tablet (Eliquis) 5 mg PO BID 30 days #60 tabs 03/29/24 04/05/24 metoprolol tartrate 25 mg tablet 25 mg PO BID 14 days #28 tabs 03/29/24 04/05/24 Previous Rx's Medication Instructions Recorded nebulizers (Mini Plus Nebulizer #1 ea 03/10/18 [facility] [place] simvastatin 20 mg tablet 20 mg PO QPM #90 tabs 03/23/23 albuterol sulfate 90 mcg/actuation 2 puff inhalation Q6H PRN 01/13/24 aerosol inhaler (Ventolin HFA) bronchospasm #6.7 grams allopurinol 300 mg tablet 300 mg PO DAILY #90 tabs 01/13/24 ipratropium 0.5 mg-albuterol 3 mg 3 ml inhalation QID PRN shortness 01/13/24 (2.5 mg base)/3 mL nebulization of breath #180 mL soln losartan 25 mg tablet 25 mg PO DAILY #90 tabs 02/09/24 apixaban 5 mg tablet (Eliquis) 5 mg PO BID 30 days #60 tabs 05/28/24 metoprolol tartrate 25 mg tablet 25 mg PO BID 14 days #28 tabs 03/29/24 Allergies Allergy/AdvReac Type Severity Reaction Status Date / Time shellfish derived Allergy Severe Anaphylaxsi Verified 04/05/24 11:19 s Opioids - Morphine Analogues AdvReac Severe nausea and Verified 04/05/24 11:19 vomiting buprenorphine AdvReac Intermediate Nausea Verified 04/05/24 11:19 spironolactone AdvReac Intermediate Stomach Verified 04/05/24 11:19 pain HORSE SERUM PROTEINS Allergy Intermediate Nasal Uncoded 04/05/24 11:19 congestion General Stated Complaint: Chest Pain KASSIDY: 2 Review of Systems All systems reviewed & are unremarkable except as noted in HPI and below Exam Narrative Exam Narrative: GENERAL APPEARANCE: Well-nourished, non-toxic, awake and alert, atraumatic, no acute distress. SKIN: Warm, pink, dry, intact, without rashes/lesions/ulcerations. HEAD: Normocephalic, atraumatic, normal hair distribution for gender/age. EYES: Pupils PERRLA, EOMs intact without nystagmus, normal conjunctiva, no exudates on lids/lashes. ENT: Nares patent, no circumoral cyanosis, no facial swelling NECK: Supple, trachea midline, painless cervical ROM. LUNGS/CHEST: Lungs CTA bilaterally, non-labored respirations, normal A/P diameter, symmetrical expansion, no chest wall deformity HEART (CV/PV): Irregular rate and rhythm without murmur, 1+ peripheral edema, no JVD. ABDOMEN: Soft, non-distended, no guarding, suprapubic mild swelling and R sided tenderness, no CVA tenderness to percussion bilaterally. MSK: Normal ROM, no swelling/deformity to bilateral UEs or LEs, moving all extremities without weakness, no cyanosis, spine midline without tenderness, normal curvature, swelling to bilateral LEs, brisk capillary refill both feet, TTP in medial thighs both LEs NEURO: Mental Status AAOx4 - alert to person, place, time, events No facial droop, no forehead involvement. Motor: No focal weakness - strength 5/5 in bilateral UEs and LEs, proximal and distal, symmetric. Sensory: sensation intact to light touch globally. Gait normal: patient ambulated without ataxia into ED room. PSYCH: euthymic, cooperative, pleasant, appropriate speech Course Vital Signs Vital signs: Vital Signs Temperature 36.6 C 04/05/24 11:12 Pulse 99 H 04/05/24 11:12 Respiratory Rate 15 04/05/24 11:12 Blood Pressure 106/78 04/05/24 11:12 Pulse Oximetry 99 04/05/24 11:12 Temperature 36.6 C 04/05/24 11:12 Temperature Source Temporal Artery Scan 04/05/24 11:12 Pulse 99 H 04/05/24 11:12 Respiratory Rate 15 04/05/24 11:12 Blood Pressure 106/78 04/05/24 11:12 Blood Pressure Position Supine 04/05/24 11:12 Pulse Oximetry 99 04/05/24 11:12 Oxygen Delivery Method Room Air 04/05/24 11:12 Oxygen Flow Rate 0 04/05/24 11:12 Pain Level 4 04/05/24 11:12 Medical Decision Making This dictation utilizes [id number] dictation software and may contain unedited grammatical errors. 78 y/o M presents to ED today with a chief complaint of chest pain and suprapubic/scrotal pain since at least last night. Patient was seen here on 03/29/24 and diagnosed with new onset atrial fibrillation- started on metoprolol and Eliquis but has been noncompliant with this medicines for the past 2 days- states he didn't like they way they make him feel and was questioning if they were the cause of his mild suprapubic/scrotal pain. Patient was recommended for admission but did not want to stay as an in-patient. Has not received an ECHO or stress test yet, has not seen Cardiology yet. Per EMS on arrival they found him in an irregular rhythm in the 150s, gave 5mg Lopressor IV x2 en route with rate control to 90s. Patient states hes had mild chest discomfort since at least last night, states he has had worsening scrotal edema and swelling. Patients' medical history: Asthma, hyperlipidemia, gout, new onset A-fib, T2DM, claudication of right lower extremity, PAD, CHF, asthma, BPH. Family and social history: noncontributory. Pertinent exam findings / vital signs include irregular rate and rhythm, right inguinal tenderness with some suprapubic bulging, no scrotal swelling, bilateral 1+ peripheral edema with chronic skin changes of both PAD and CVI. Differential / pathologies of concern include congestive heart failure, atrial flutter with RVR, neurovascular compromise of either lower extremity via arterial or venous source, unlikely ACS, neuro intact do not suspect any stroke pathology. Diagnostic studies of: -CBC, CMP, lactate, magnesium, troponin I, BNP, lipase, urinalysis, D-dimer, EKG > imaging decision based on D-dimer, had recent CTA Chest/ABD/Pelvis on 03/29 - *Added US Bilat DVT Study, US Hernia study, CTA Aorta w/ Runoffs. -CBC shows no leukocytosis, no anemia -CMP is relatively benign with normal kidney function, mildly elevated bilirubin which is baseline -Lactate negative -BNP is trending upward is now 40-75 up from prior visit of 3300 -Troponin negative -Lipase negative -UA benign -D-dimer is elevated at 948, CTA Aorta with runoffs ordered for view of aorta as well as his worsening leg pain in the setting of PAD, question SMA pathology as well. -EKG shows rate controlled atrial flutter at 98 bpm with likely 3-1 AV block, normal QT QTc, left axis deviation, no bundle-branch blocks, no acute ST changes of ischemia or inverted T waves patient -US Bilat DVT studies negative, US hernia study negative -CTA aorta with runoffs pending Interventions of: -None. ED Course/Assessment/Plan: 78-year-old male presents in atrial flutter with RVR per EMS, converted with 2 doses of 5 mg of Lopressor by EMS en route. He has been hemodynamically stable with some mild chest pressure throughout the visit, he has remained rate controlled in the 90s here, he has uptrending BNP without hypoxia, he had elevated D-dimer and reported severe bilateral leg pain with known PAD, he was recently put on Eliquis but discontinued this of his own accord. His ultrasounds of bilateral lower extremities are negative, he reports suprapubic swelling and pain which is negative on ultrasound for any hernia. He is signed out pending CTA of the aorta with runoff Patient has a potential for admission, he was recommended to be admitted for his new onset A-fib with RVR last week, he has a evidence of worsening CHF on labs and has not made any arrangements for echocardiogram or follow-up in the meantime, patient signed out with imaging pending and plan for possible admissi on versus possible discharge as long as he has confirmed echocardiogram in the very near future with cardiology follow-up. Signed out to Chapis Silvestre NP with CT Aorta w Runoffs pending. Findings not consistent with hypoxic respiratory failure, ACS, DVT. Disposition of Atrial Flutter with Rapid Ventricular Response. Patient verbalized understanding of the plan and return to ED criteria and engaged in shared decision making. Medical Records Medical records reviewed: Yes I reviewed the patient's medical records. Imaging Data Radiologic Study: Attestation: I personally reviewed and interpreted this imaging study as follows: Imaging: Ultrasound Radiologist's impression: EXAM: US EXTREMITY VENOUS BI CLINICAL HISTORY: bilateral medial thigh tenderness, chronic vasc dz TECHNIQUE: Grayscale, color, and doppler imaging of the deep venous system of both lower extremities was performed. COMPARISON: No exams were available for comparison FINDINGS: There is no evidence of intraluminal thrombus and there is normal compression and augmentation demonstrated within the common femoral veins, femoral veins, and popliteal veins of both lower extremities. In the calves the interrogated veins also exhibit normal compression/ augmentation properties. The greater saphenous veins also appear patent as do the saphenofemoral junctions bilaterally.. IMPRESSION: 1. No ultrasound evidence of DVT in either lower extremity. Radiologic Study #2: Attestation: I personally reviewed and interpreted this imaging study as follows: Imaging: Ultrasound Radiologist's impression: EXAM: US HERNIA CLINICAL HISTORY: R inguinal hernia?. TECHNIQUE: Ultrasound was performed using standard protocol. COMPARISON: Prior CT scan 03/21/2024. FINDINGS: Dedicated ultrasound examination of the area of clinical concern-bulging in the lower abdomen-pelvis was performed. Also image with Valsalva maneuver. Study reveals no evidence of anterior abdominal hernia at this level. Also no abnormal fluid collection. IMPRESSION: Negative ultrasound study for anterior abdominal wall hernia in the area examined. Radiologic Study #3: Attestation: I personally reviewed and interpreted this imaging study as follows: Imaging: CT Scan My impression: Pending at sign-out Lab Data Lab results reviewed: Yes I reviewed the patient's lab results. Labs: Laboratory Tests Range/Units 04/05/24 04/05/24 11:19 11:30 WBC (4.4-10.8) 10^3/uL 7.38 RBC (4.36-5.78) 10^6/uL 4.58 Hgb (13.5-17.5) g/dL 14.4 Hct (40.0-50.0) % 44.2 MCV (80-95) fL 97 H MCH (27.0-33.0) pg 31.4 MCHC (32.0-36.0) % 32.6 RDW (11.8-14.1) % 14.1 Plt Count (130-400) 10^3/uL 214 MPV (8.0-11.0) fL 10.9 Immature Gran % % 0.3 Neutrophils % % 69.6 Lymphocytes % % 19.5 Monocytes % % 8.7 Eosinophils % % 1.2 Basophils % % 0.7 Nucleated RBC % (0.0-0.3) % 0.0 Absolute Neutrophils (1.2-6.7) 10^3/uL 5.14 Absolute Lymphocytes (1.2-3.4) 10^3/uL 1.44 Absolute Monocytes (0.1-0.8) 10^3/uL 0.64 Absolute Eosinophils (0.0-0.7) 10^3/uL 0.09 Absolute Basophils (0.0-0.2) 10^3/uL 0.05 D-Dimer (<500) ng/mlFEU 948 H VBG Lactate (0.6-1.4) mmol/L 1.6 H Sodium (136-145) mmol/L 141 Potassium (3.5-5.1) mmol/L 4.5 Chloride (98-107) mmol/L 104 Carbon Dioxide (21.0-32.0) mmol/L 26.2 Anion Gap (3-11) mmol/L 10.8 BUN (7-18) mg/dL 21 H Creatinine (0.70-1.30) mg/dL 1.1 Est GFR (CKD-EPI 2020) (mL/min/1.73m2) 69.57 Glucose (74-106) mg/dL 113 H Calcium (8.5-10.1) mg/dL 9.5 Magnesium (1.8-2.4) mg/dL 2.1 Total Bilirubin (0.2-1.0) mg/dL 1.2 H AST (15-37) U/L 42 H ALT (16-63) U/L 51 Alkaline Phosphatase (46-116) U/L 196 H Troponin I (< or =60) ng/L < 50 NT-Pro-B Natriuret Pep (<300) pg/mL 4275 H Total Protein (6.4-8.2) g/dL 7.2 Albumin (3.4-5.0) g/dL 3.9 Lipase (16-77) U/L 38 Urine Color (Yellow) Yellow Urine Clarity (Clear) Clear Urine pH (5-8) 5.5 Ur Specific [place] (1.005-1.025) >= 1.030 H Urine Protein (Neg-Trace) mg/dL Trace Urine Ketones (Negative) mg/dL Trace H Urine Blood (Negative) Negative Urine Nitrite (Negative) Negative Urine Bilirubin (Negative) Small H Urine Urobilinogen (Up to 0.2) mg/dL 0.2 Ur Leukocyte Esterase (Negative) Negative Urine Glucose (Negative) mg/dL Negative Quality:SDOH Health Related Social Needs: No Data to Display PFSH All Active Problems (Updated 03/29/24 @ 15:47 by Kasia Lambert) Bladder wall thickening (Acute) Abdominal pain (Acute) New onset a-fib (Acute) CRPS (complex regional pain syndrome) type I of lower limb (Acute) Diabetes mellitus with diabetic polyneuropathy (Acute) Claudication of right lower extremity (Acute) Septic arthritis of right ankle (Acute) PAD (peripheral artery disease) (Acute) Chronic foot pain (Acute) Positive MIKE (antinuclear antibody) (Acute) Rheumatoid factor positive (Acute) Ankle pain, right (Acute) Hypertension (Chronic) Abnormal electrocardiogram (Acute) Right wrist pain (Acute) CHF (congestive heart failure) (Chronic) Hypertriglyceridemia (Acute) Elevated blood pressure reading without diagnosis of hypertension (Acute) Erectile dysfunction (Acute) Asthma (Acute 06/22/13) Gout (Acute) Joint pain (Acute 06/22/13) Status post carpal tunnel release (Acute) Status post laminectomy (Acute 06/11/16) Right leg swelling (Acute) likely venous insuffi Tick bite (Acute) no sign of disease Back pain (Chronic) deteriorated ?related to fall 6 months ago Knee pain (Acute) Hyperlipidemia with target LDL less than 130 (Acute 06/22/13) Hand joint pain (Acute 06/22/13) Chronic bilateral low back pain without sciatica (Acute 06/11/16) Benign prostatic hyperplasia (Acute 06/22/13) Medical History Asthma Hyperlipidemia Gout Surgical History Open Carpal Tunnel release Neck ortho surgery (09/17/15) LUMBAR SURGERY 12/30/16- [facility] MAURICE Family History Sister , AGE 72 Diabetes Mother , AGE 94 Hyperlipidemia Father , 64 Essential hypertension Stroke Lung cancer Brother No problems noted. 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 fib w/ RVR > left without admission of his own preference- was started on metoprolol and Eliquis at that time- DC'd them both for personal reasons. Brought in by EMS in atrial flutter with RVR to 150s, was converted pharmacologically with 2x 5mg Lopressor doses en route. Had some mild chest pressure here, severe leg pain, and reporting swelling and pain to suprapubic area. Labs show worsening CHF, negative trop, US for DVTs bilat neg, US hernia study neg. Patient awaiting aorta with runoff study - has known PAD, may be source of leg pain. May require admission for CHF/ A flutter w RVR and noncompliance- has made no definitive cardiology f/u or ECHO appointment yet. Last updated by Marcus Gamble PA at 04/05/24 15:32
[2024-04-05 11:27] LABS: Lactate 1.6 mmol/L (0.6-1.4)
[2024-04-05 11:28] LABS: Abs Immature Grans 0.02 10^3/uL (0.0-0.06); Absolute Basophil Count 0.05 10^3/uL (0.0-0.2); Absolute Eosinophil Count 0.09 10^3/uL (0.0-0.7); Absolute Lymphocyte Count 1.44 10^3/uL (1.2-3.4); Absolute Monocyte Count 0.64 10^3/uL (0.1-0.8); Absolute Neutrophil Count 5.14 10^3/uL (1.2-6.7); Basophils % 0.7 %; Eosinophils % 1.2 %; HCT 44.2 % (40.0-50.0); HGB 14.4 g/dL (13.5-17.5); Immature Grans % 0.3 %; Lymphocytes % 19.5 %; MCH 31.4 pg (27.0-33.0); MCHC 32.6 % (32.0-36.0); MCV 97 fL (80-95); MPV 10.9 fL (8.0-11.0); Monocytes % 8.7 %; Neutrophils % 69.6 %; Platelet Count 214 10^3/uL (130-400); RBC 4.58 10^6/uL (4.36-5.78); RDW 14.1 % (11.8-14.1); RDW-SD 49.6 fL; WBC 7.38 10^3/uL (4.4-10.8)
--- NOTE | 2024-04-05 11:30 | DI.US_ITS ---
Exam(s) US EXTREMITY VENOUS BI EXAM: US EXTREMITY VENOUS BI CLINICAL HISTORY: bilateral medial thigh tenderness, chronic vasc dz TECHNIQUE: Grayscale, color, and doppler imaging of the deep venous system of both lower extremities was performed. COMPARISON: No exams were available for comparison FINDINGS: There is no evidence of intraluminal thrombus and there is normal compression and augmentation demons trated within the common femoral veins, femoral veins, and popliteal veins of both lower extremities. In the calves the interrogated veins also exhibit normal compression/ augmentation properties. The greater saphenous veins also appear patent as do the saphenofemoral junctions bilaterally.. IMPRESSION: 1. No ultrasound evidence of DVT in either lower extremity. DATA REPOSITORY:
[2024-04-05 11:47] LABS: Bilirubin Small (Negative); Blood Negative (Negative); Clarity Clear (Clear); Glucose Negative (Negative); Ketones Trace mg/dL (Negative); Leukocyte Esterase Negative (Negative); Nitrite Negative (Negative); Specific Gravity >= 1.030 (1.005-1.025); Urobilinogen 0.2 mg/dL (Up to 0.2); pH 5.5 (5-8)
[2024-04-05 11:57] LABS: D-Dimer 948 ng/mlFEU (<500)
[2024-04-05 12:55] LABS: ALT 51 U/L (16-63); AST 42 U/L (15-37); Albumin 3.9 g/dL (3.4-5.0); Alkaline Phosphatase 196 U/L (46-116); Anion Gap 10.8 mmol/L (3-11); BUN 21 mg/dL (7-18); Bilirubin, Total 1.2 mg/dL (0.2-1.0); CO2 26.2 mmol/L (21.0-32.0); CREATININE 1.1 mg/dL (0.70-1.30); Calcium 9.5 mg/dL (8.5-10.1); Chloride 104 mmol/L (98-107); Estimated GFR 69.57 (mL/min/1.73m2); Glucose 113 mg/dL (74-106); Lipase 38 U/L (16-77); Magnesium 2.1 mg/dL (1.8-2.4); NT-proBNP 4275 pg/mL (<300); Potassium 4.5 mmol/L (3.5-5.1); Sodium 141 mmol/L (136-145); Total Protein 7.2 g/dL (6.4-8.2); Troponin I < 50 ng/L (< or =60)
--- NOTE | 2024-04-05 13:15 | DI.US_ITS ---
Exam(s) US HERNIA EXAM: US HERNIA CLINICAL HISTORY: R inguinal hernia?. TECHNIQUE: Ultrasound was performed using standard protocol. COMPARISON: Prior CT scan 03/21/2024. FINDINGS: Dedicated ultrasound examination of the area of clinical concern-bulging in the lower abdomen-pelvis was performed. Also image with Valsalva maneuver. Study reveals no evidence of anterior abdominal hernia at this level. Also no abnormal fluid collect ion. IMPRESSION: Negative ultrasound study for anterior abdominal wall hernia in the area examined. DATA REPOSITORY:
[2024-04-05] MEDS: Normal Saline - Diluent 50 ML VIAL IJ ×2 (15:41→15:42)
[2024-04-05] MEDS: Omnipaque 350 MG/ML 100 ML BTL IJ (15:42)
[2024-04-05] MEDS: Omnipaque 350 MG/ML 50 ML BTL IJ (15:44)
--- NOTE | 2024-04-05 16:01 | W.EDPROG ---
Date of service: 04/05/24 Time of Service: 16:01 Medical Decision Making Care assumed from provider (FRANKLIN Tanner) Please see their initial HPI, PE, and documentation. Discussed patient details and case and pending workup and disposition. Patient is hemodynamically stable, and alert and oriented. At the time of signout awaiting CTA chest with runoff, In short patient is a 78-year-old male with new onset A-fib that was converted prior to arrival by EMS. Patient was reported to be in a flutter with RVR with a rate into the 150s he was given 10 mg of Lopressor prior to arrival. She does have a history of DVTs, his proBNP is elevated at 4 to 75, D-dimer is also elevated at 948, lactate is 1.6 BUN 21 glucose 113 bilirubin 1.2 AST 42 ALT 51 alk phos 196 troponin less than 50 initially. At the time of signout patient is in CT for CT abdomen with runoff. Spoke with radiologist who reports that there is extensive atherosclerotic disease in lower extremities with occlusion of the anterior tibial posterior tibial and peroneal arteries on the right and the anterior tibial and posterior tibial arteries on the left. He does have mild ascites in the peritoneal cavity and small bilateral pleural effusions most likely due to worsening CHF. Lasix 40 mg IV push ordered, heparin protocol ordered for DVT prophylaxis PT PTT added on. Images sent to [facility]. Patient and family report they had a [place] [facility] [place]. Repeat EKG obtained and repeat Trope. He did become slightly tachycardic and a rate of 130 while I was in the room with him right now he is 92-1 01 and irregular. He denies any chest pain. Working diagnosis acute on chronic arterial occlusion as noted above, worsening CHF and ascites. Will consult with [facility] tertiary facility. On further exam and taken off YEHUDA hose he does have ecchymotic cold blue right lower extremity cap refill greater than 4 seconds, also has cap refill greater than 4 seconds on the left. He is complaining of left groin pain left leg pain and bilateral lower leg pain. 1742: [facility] transfer center called for tertiary care and cardiology consult. [facility] EKG x-ray. 1818: Yenny with [facility] Vascular surgery called she does not recommend emergent transfer or admission at this time, she agrees with heparin reasoning behind non-emergent transfer is he does have distal light sensation globally, intact movement, and light pulses. 1840: Will consult with Hospitalist here. Has had 500 cc urine output since Lasix administration. 185: Spoke with Dr. Lowery. 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 Holding orders placed in the ER. Medical Records Medical records reviewed: Yes I reviewed the patient's medical records. Imaging Data Radiologic Study: Imaging: CT Scan Radiologist's impression: CT abdomen pelvis with runoff IMPRESSION: 1. Small bilateral pleural effusions. 2. Abdominal ascites similar to the prior examination 3. Extensive atherosclerotic disease in the lower extremities with occlusion of the anterior tibial, posterior tibial and peroneal arteries on the right and the anterior tibial and posterior tibial arteries on the left. Lab Data Lab results reviewed: Yes I reviewed the patient's lab results. Labs: Laboratory Tests Range/Units 04/05/24 04/05/24 11:19 11:30 WBC (4.4-10.8) 10^3/uL 7.38 RBC (4.36-5.78) 10^6/uL 4.58 Hgb (13.5-17.5) g/dL 14.4 Hct (40.0-50.0) % 44.2 MCV (80-95) fL 97 H MCH (27.0-33.0) pg 31.4 MCHC (32.0-36.0) % 32.6 RDW (11.8-14.1) % 14.1 Plt Count (130-400) 10^3/uL 214 MPV (8.0-11.0) fL 10.9 Immature Gran % % 0.3 Neutrophils % % 69.6 Lymphocytes % % 19.5 Monocytes % % 8.7 Eosinophils % % 1.2 Basophils % % 0.7 Nucleated RBC % (0.0-0.3) % 0.0 Absolute Neutrophils (1.2-6.7) 10^3/uL 5.14 Absolute Lymphocytes (1.2-3.4) 10^3/uL 1.44 Absolute Monocytes (0.1-0.8) 10^3/uL 0.64 Absolute Eosinophils (0.0-0.7) 10^3/uL 0.09 Absolute Basophils (0.0-0.2) 10^3/uL 0.05 D-Dimer (<500) ng/mlFEU 948 H VBG Lactate (0.6-1.4) mmol/L 1.6 H Sodium (136-145) mmol/L 141 Potassium (3.5-5.1) mmol/L 4.5 Chloride (98-107) mmol/L 104 Carbon Dioxide (21.0-32.0) mmol/L 26.2 Anion Gap (3-11) mmol/L 10.8 BUN (7-18) mg/dL 21 H Creatinine (0.70-1.30) mg/dL 1.1 Est GFR (CKD-EPI 2020) (mL/min/1.73m2) 69.57 Glucose (74-106) mg/dL 113 H Calcium (8.5-10.1) mg/dL 9.5 Magnesium (1.8-2.4) mg/dL 2.1 Total Bilirubin (0.2-1.0) mg/dL 1.2 H AST (15-37) U/L 42 H ALT (16-63) U/L 51 Alkaline Phosphatase (46-116) U/L 196 H Troponin I (< or =60) ng/L < 50 NT-Pro-B Natriuret Pep (<300) pg/mL 4275 H Total Protein (6.4-8.2) g/dL 7.2 Albumin (3.4-5.0) g/dL 3.9 Lipase (16-77) U/L 38 Urine Color (Yellow) Yellow Urine Clarity (Clear) Clear Urine pH (5-8) 5.5 Ur Specific [place] (1.005-1.025) >= 1.030 H Urine Protein (Neg-Trace) mg/dL Trace Urine Ketones (Negative) mg/dL Trace H Urine Blood (Negative) Negative Urine Nitrite (Negative) Negative Urine Bilirubin (Negative) Small H Urine Urobilinogen (Up to 0.2) mg/dL 0.2 Ur Leukocyte Esterase (Negative) Negative Urine Glucose (Negative) mg/dL Negative ECG Data Prior ECG tracings: available for review Quality:[facility] Health Related Social Needs: No Data to Display Exam Extrem Right lower extremity: cyanosis (Right lower extremity is ecchymotic, cap refill greater than 4 seconds, ), edema, knee, lower leg Details: pitting edema and ecchymosis, ankle and foot Left lower extremity: edema Details: 2+, hip/thigh, lower leg Details: tenderness (Left groin thigh lower leg), ankle and foot Upper/lower leg/hip images: 1. Ecchymosis, cold cyanotic, Cap refill greater than 4 sec Sign Out Sign Out Data: Sign Out Comment: Patient seen here 03/29 - New onset A. fib w/ RVR > left without admission of his own preference- was started on metoprolol and Eliquis at that time- DC'd them both for personal reasons. Brought in by EMS in atrial flutter with RVR to 150s, was converted pharmacologically with 2x 5mg Lopressor doses en route. Had some mild chest pressure here, severe leg pain, and reporting swelling and pain to suprapubic area. Labs show worsening CHF, negative trop, US for DVTs bilat neg, US hernia study neg. Patient awaiting aorta with runoff study - has known PAD, may be source of leg pain. May require admission for CHF/ A flutter w RVR and noncompliance- has made no definitive cardiology f/u or ECHO appointment yet. Last updated by Marcus Gamble PA at 04/05/24 15:32 Discharge Plan Discharge Details Chief Complaint: Chest Pain Admit Date/Time: 04/05/24 19:00 Admit Provider: Aj Lowery Attending Provider: Aj Lowery Primary Care Provider: Ludwin Heaton ED Provider: Chapis Silvestre
--- NOTE | 2024-04-05 16:32 | DI.CT_ITS ---
Exam(s) CT ABD AORTA CTA W RUNOFF EXAM: CT ABD AORTA CTA W RUNOFF CLINICAL HISTORY: PAD, chest/epigastric pressure, off Rx thinners. TECHNIQUE: Imaging Protocol: Axial CT angiography was performed with multi-slice acquisition and mu lti-planar and/or 3D reconstructions. CONTRAST MATERIAL: Intravenous: Omnipaque 350 Contrast volume:structured data in ml mL Oral: yes / no COMPARISON: CT CT THORAX ABD/PEL CTA from 03/29/2024 FINDINGS: Vascular Structures: Abdomen and pelvis: Celiac Rapelje/SMA: No evidence of occlusion or significant stenosis. There is atherosclerosis at the o rigin of both the celiac axis and the superior mesenteric artery but no significant stenosis is seen. Renal Arteries: No evidence of occlusion or significant stenosis. There is atherosclerosis at the concetta gins of the renal arteries but no significant stenosis is present. Aorta: No aneurysm, occlusion or significant stenosis. No dissection. Atherosclerotic calcification is present. Iliac Arteries: No evidence of occlusion or significant stenosis. Atherosclerotic calcification is p resent but no significant stenosis is seen. Lower extremities: Right: Femoral: No evidence of occlusion or significant stenosis. Atherosclerosis is present but no signific ant stenosis. Deep Femoral Artery: No evidence of occlusion or significant stenosis. Atherosclerosis is present bu t no significant stenosis. Popliteal: No evidence of occlusion or significant stenosis. Atherosclerosis is present but no signif icant stenosis. Knee Trifurcation: No evidence of occlusion or significant stenosis. Anterior Tibial: There is occlusion of the right anterior tibial artery soon after the trifurcation. Posterior Tibial: There is occlusion of the right posterior tibial artery midway through the calf. Peroneal:The peroneal artery shows multifocal stenosis particularly distally and is absent just above the ankle joint. Left: Femoral: No evidence of occlusion or significant stenosis. Atherosclerosis is present but no signific ant stenosis. Deep femoral artery: No evidence of occlusion or significant stenosis. Atherosclerosis is present but no significant stenosis. Popliteal: No evidence ofocclusion or significant stenosis. Atherosclerosis is present but no signi ficant stenosis. Knee Trifurcation: No evidence of occlusion or significant stenosis. Atherosclerosis is present. Anterior tibial: There is occlusion of the anterior tibial tuberosity approximately. Posterior Tibial: There is occlusion of the posterior tibial artery approximately midway through the calf. Peroneal: No evidence of occlusion or significant stenosis. Soft Tissues: Lung bases: There are small bilateral pleural effusions. Liver: Normal density. No measurable mass. Gallbladder and biliary tract: No radiodense calculus or dilation. Pancreas: Normal density, no abnormal calcifications or inflammatory process. Spleen: Normal. Kidneys: Normal size, contour and axis. No radiodense stones or obstructive uropathy. No masses seen. Adrenal glands: No masses seen. Aorta: Abdominal portion non-dilated. Atherosclerotic calcification is present. No evidence of disse ction. Bladder: There is diffuse thickening of the wall of the urinary bladder. The bladder is incompletely distended. Reproductive organs: Mildly enlarged.. Bowel: There is diverticulosis of the colon but no definite evidence of acute diverticulitis. No zachary dence of bowel wall thickening or obstruction. No evidence of appendicitis. Peritoneal cavity: There is a small amount of perihepatic and perisplenic ascites. There is a small amount of pelvic ascites. No free air. Bones: Within normal limits for the patient's age. IMPRESSION: 1. Small bilateral pleural effusions. 2. Abdominal ascites similar to the prior examination 3. Extensive atherosclerotic disease in the lower extremities with occlusion of the anterior tibial, posterior tibial and peroneal arteries on the right and the anterior tibial and posterior tibial palmer jami on the left. RADIATION DOSE DELIVERED: 1,597.29mGy.cm Total DLP 1,597.29mGy.cm Total DLP DATA REPOSITORY: All CT scans at this facility are submitted to the National Radiology Data Registry (NRDR) Dose Index Registry (DIR) with the [employer] (ACR). RADIATION OPTIMIZATION: All CT scans at this facility use at least one of these dose optimization te chniques: automated exposure control; mA and/or kV adjustment per patient size (includes targeted exa ms where dose is matched to clinical indication); or iterative reconstruction.
--- NOTE | 2024-04-05 17:15 | RT.EKG_ITS ---
APPROVED REPORT Exam: Resting ECG Reason for Exam: HR Patient Location: E HR:130 bpm ECG Measurements Heart Rate 130 AXIS W[place] [id number] P [id number] QRSd 110 QRS -85 QT 368 T 82 QTc 542 Conclusion Atrial flutter with 2:1 AV block...A-rate 288, V-rate> 99 Inferior infarct, old...Q >35mS, II III aVF Anterior infarct, old...Q >40mS, abnormal ST-T, V2-V5 Prolonged QT interval...QTc >500mS I have reviewed and interpreted ECG and agree with software generated interpretation. There are no significant changes compared to prior EKG performed on 03/29/2024 at 12:02.
[2024-04-05] MEDS: Furosemide 20 MG/2 ML VIAL 40 MG IVP (17:51)
[2024-04-05 18:02] LABS: INR 1.3 (0.9-1.1); PTT Activated 26.1 sec (23.6-32.8); Prothrombin Time 12.7 sec (9.1-11.1)
[2024-04-05 18:06] LABS: Troponin I < 50 ng/L (< or =60)
[2024-04-05] MEDS: Heparin in 0.45% NaCl 25,000 UNIT/250 ML BAG 17.5 UNIT IV (18:13)
[2024-04-05] MEDS: Metoprolol 5 MG/5 ML VIAL IVP (18:55)
--- NOTE | 2024-04-05 19:40 | W.PC.ACHO ---
Registration Status: REG ER Primary Language: Preferred Language: Kazakh ED Information & Data Chief Complaint Chest Pain 04/05/24 11:24 Triage Note patient tachycardic when ems 04/05/24 11:12 arrived. having chest pain with sob which is improving. also c/o scrotal discomfort . Medical / Surgical History (Last Reviewed 10/22/23 @ 14:23 by Cinda Whitehead DPM) Asthma Hyperlipidemia Gout (Last Reviewed 10/22/23 @ 14:23 by Cinda Whitehead DPM) Open Carpal Tunnel release Neck ortho surgery (09/17/15) LUMBAR SURGERY Most Recent Vital Signs Temperature 36.6 C 04/05/24 11:12 Temperature Source Temporal Artery Scan 04/05/24 11:12 Pulse 48 L 04/05/24 19:00 Pulse 88 04/05/24 19:10 Respiratory Rate 12 04/05/24 19:10 Respiratory Effort Normal 04/05/24 11:24 Respiratory Depth Normal 04/05/24 11:24 Respiratory Pattern Normal 04/05/24 11:24 Blood Pressure 141/83 H 04/05/24 19:00 Blood Pressure Mean 102 04/05/24 19:00 Blood Pressure Position Supine 04/05/24 11:12 Pulse Oximetry 97 04/05/24 19:10 Oxygen Delivery Method Room Air 04/05/24 11:12 Oxygen Flow Rate 0 04/05/24 11:12 Pain Level 4 04/05/24 11:12 Allergies shellfish derived Allergy (Severe, Verified 04/05/24 11:19) Anaphylaxsis Opioids - Morphine Analogues Adverse Reaction (Severe, Verified 04/05/24 11:19) nausea and vomiting buprenorphine Adverse Reaction (Intermediate, Verified 04/05/24 11:19) Nausea n/v after first dose spironolactone Adverse Reaction (Intermediate, Verified 04/05/24 11:19) Stomach pain HORSE SERUM PROTEINS Allergy (Intermediate, Uncoded 04/05/24 11:19) Nasal congestion Precautions Isolation Standard precaution 04/05/24 11:24 Active Medications Generic Name Dose Route Start Last Admin Trade Name Freq PRN Reason Stop Dose Admin Heparin Sodium/Sodium Chloride 25,000 unit in 250 mls @ 17.5 mls/hr 04/05/24 17:34 04/05/24 18:13 IV 04/06/24 07:51 1,750 units/hr INFUSION STA 17.5 mls/hr Administration Protocol 1,750 UNITS/HR Iohexol 100 ml 04/05/24 15:45 04/05/24 15:42 Omnipaque 350 Mg/Ml 100 Ml Btl IJ 05/05/24 23:59 100 ml DIRECTED MEHREEN Administration Iohexol 50 ml 04/05/24 16:00 04/05/24 15:44 Omnipaque 350 Mg/Ml 50 Ml Btl IJ 05/05/24 23:59 50 ml DIRECTED MEHREEN Administration Sodium Chloride 50 ml 04/05/24 15:45 04/05/24 15:42 Normal Saline - Diluent 50 Ml Vial IJ 50 ml .FOR DI USE MEHREEN Administration IV IV Catheter Type [Right Saline Lock Antecubital] IV Catheter Type [Left Saline Lock Antecubital] IV Catheter Gauge [Right 20 Antecubital] IV Catheter Gauge [Left 18 Antecubital] Diet Orders Category Date Time Status Regular/Normal [DIET] Nutrition 04/06/24 Breakfast Ordered Diagnostics 04/05/24 04/05/24 04/05/24 Range/Units 17:40 17:37 11:30 WBC (4.4-10.8) 10^3/uL RBC (4.36-5.78) 10^6/uL Hgb (13.5-17.5) g/dL Hct (40.0-50.0) % MCV (80-95) fL MCH (27.0-33.0) pg MCHC (32.0-36.0) % RDW (11.8-14.1) % Plt Count (130-400) 10^3/uL MPV (8.0-11.0) fL Immature Gran % % Neutrophils % % Lymphocytes % % Monocytes % % Eosinophils % % Basophils % % Nucleated RBC % (0.0-0.3) % Absolute Neutrophils (1.2-6.7) 10^3/uL Absolute Lymphocytes (1.2-3.4) 10^3/uL Absolute Monocytes (0.1-0.8) 10^3/uL Absolute Eosinophils (0.0-0.7) 10^3/uL Absolute Basophils (0.0-0.2) 10^3/uL PT 12.7 H (9.1-11.1) sec INR 1.3 H (0.9-1.1) APTT 26.1 (23.6-32.8) sec D-Dimer (<500) ng/mlFEU VBG Lactate (0.6-1.4) mmol/L Sodium (136-145) mmol/L Potassium (3.5-5.1) mmol/L Chloride (98-107) mmol/L Carbon Dioxide (21.0-32.0) mmol/L Anion Gap (3-11) mmol/L BUN (7-18) mg/dL Creatinine (0.70-1.30) mg/dL Est GFR (CKD-EPI 2020) (mL/min/1.73m2) Glucose (74-106) mg/dL Calcium (8.5-10.1) mg/dL Magnesium (1.8-2.4) mg/dL Total Bilirubin (0.2-1.0) mg/dL AST (15-37) U/L ALT (16-63) U/L Alkaline Phosphatase (46-116) U/L Troponin I < 50 (< or =60) ng/L NT-Pro-B Natriuret Pep (<300) pg/mL Total Protein (6.4-8.2) g/dL Albumin (3.4-5.0) g/dL Lipase (16-77) U/L Urine Color Yellow (Yellow) Urine Clarity Clear (Clear) Urine pH 5.5 (5-8) Ur Specific [place] >= 1.030 H (1.005-1.025) Urine Protein Trace (Neg-Trace) mg/dL Urine Ketones Trace H (Negative) mg/dL Urine Blood Negative (Negative) Urine Nitrite Negative (Negative) Urine Bilirubin Small H (Negative) Urine Urobilinogen 0.2 (Up to 0.2) mg/dL Ur Leukocyte Esterase Negative (Negative) Urine Glucose Negative (Negative) mg/dL Add-On Test Request Cancelled 04/05/24 Range/Units 11:19 WBC 7.38 (4.4-10.8) 10^3/uL RBC 4.58 (4.36-5.78) 10^6/uL Hgb 14.4 (13.5-17.5) g/dL Hct 44.2 (40.0-50.0) % MCV 97 H (80-95) fL MCH 31.4 (27.0-33.0) pg MCHC 32.6 (32.0-36.0) % RDW 14.1 (11.8-14.1) % Plt Count 214 (130-400) 10^3/uL MPV 10.9 (8.0-11.0) fL Immature Gran % 0.3 % Neutrophils % 69.6 % Lymphocytes % 19.5 % Monocytes % 8.7 % Eosinophils % 1.2 % Basophils % 0.7 % Nucleated RBC % 0.0 (0.0-0.3) % Absolute Neutrophils 5.14 (1.2-6.7) 10^3/uL Absolute Lymphocytes 1.44 (1.2-3.4) 10^3/uL Absolute Monocytes 0.64 (0.1-0.8) 10^3/uL Absolute Eosinophils 0.09 (0.0-0.7) 10^3/uL Absolute Basophils 0.05 (0.0-0.2) 10^3/uL PT (9.1-11.1) sec INR (0.9-1.1) APTT (23.6-32.8) sec D-Dimer 948 H (<500) ng/mlFEU VBG Lactate 1.6 H (0.6-1.4) mmol/L Sodium 141 (136-145) mmol/L Potassium 4.5 (3.5-5.1) mmol/L Chloride 104 (98-107) mmol/L Carbon Dioxide 26.2 (21.0-32.0) mmol/L Anion Gap 10.8 (3-11) mmol/L BUN 21 H (7-18) mg/dL Creatinine 1.1 (0.70-1.30) mg/dL Est GFR (CKD-EPI 2020) 69.57 (mL/min/1.73m2) Glucose 113 H (74-106) mg/dL Calcium 9.5 (8.5-10.1) mg/dL Magnesium 2.1 (1.8-2.4) mg/dL Total Bilirubin 1.2 H (0.2-1.0) mg/dL AST 42 H (15-37) U/L ALT 51 (16-63) U/L Alkaline Phosphatase 196 H (46-116) U/L Troponin I < 50 (< or =60) ng/L NT-Pro-B Natriuret Pep 4275 H (<300) pg/mL Total Protein 7.2 (6.4-8.2) g/dL Albumin 3.9 (3.4-5.0) g/dL Lipase 38 (16-77) U/L Urine Color (Yellow) Urine Clarity (Clear) Urine pH (5-8) Ur Specific [place] (1.005-1.025) Urine Protein (Neg-Trace) mg/dL Urine Ketones (Negative) mg/dL Urine Blood (Negative) Urine Nitrite (Negative) Urine Bilirubin (Negative) Urine Urobilinogen (Up to 0.2) mg/dL Ur Leukocyte Esterase (Negative) Urine Glucose (Negative) mg/dL Add-On Test Request Intake and Output - 24 Hour Total 04/05/24 11:06 thru 04/05/24 19:17 Output Total 550 Balance -550 Weight 99.79 kg Output: Urine 550 Falls Risk Assessment History of Falls No History 04/05/24 11:24 Contributing Factors No Factors 04/05/24 11:24 Ambulatory Aids Independent 04/05/24 11:24 Tubes/Lines None 04/05/24 11:24 Fall Total Score 0 04/05/24 11:24 Level of Risk Standard/Low Risk 04/05/24 11:24 v v v v v v v v v Sending and/or Receiving Nurses: Please use comment section below to note any information pertinent to the patient hand-off not included above. Information / Comments: Report received from: Jeri LE
[2024-04-05] MEDS: Normal Saline Flush 10 ML SYR IVP (20:10)
--- NOTE | 2024-04-05 20:24 | W.PM.HP.N ---
Date of service: 04/05/24 Time of Service: 20:24 Assessment and Plan Assessment and plan (1) New onset a-fib: Status: Acute Assessment and plan: Current EKG c/w flutter, was in Atrial fibrillation last week. He elected outpatient treatment initially, but stopped the apixaban and metoprolol due to swelling in bladder area. Had nl TSH, negative troponins On heparin, but can transition back to oral apxiaban when next dose due (stop the drip an hour before). I don't think his bladder swelling was related to his medication so we can try the same ones and monitor. Responding well to IV metoprolol, will resume oral. (2) PAD (peripheral artery disease): Status: Acute Assessment and plan: Reviewing the CT with moody in comparison with the report from the same study on 09/03/23, it is not clear that there is any acute change. His discoloration, shiny skin, and cold of the RLE is not new and has been evaluated with multiple specialties including vascular surgery. He may have CRPS that is causing these changes along with swelling. Given this, I think he should have 81mg aspirin and a high intensity statin and follow up with vascular surgery as an outpatient, but I don't think acute treatment needed. Repeat lipids and A1c with labs (DM with neuropathy on his list, but it does not seem that he is being treated for diabetes so I think this is an error.). (3) CHF (congestive heart failure): Status: Chronic Assessment and plan: Based on the pleaural effusions, increasing BNaP, and increased LE edema that is now bilateral, the atrial arrythmia may be causing some mild CHF. Echocardiogram ordered. EKG and troponins are not consistent with ACS He was on bumetanide 1mg in December, notes don't make clear why this was stopped. (4) Asthma: Status: Acute Assessment and plan: He denies increase symptoms since starting metoprolol, so I think we can safely continue this. (5) Benign prostatic hyperplasia: Status: Acute Assessment and plan: I think his presenting complaint of suprapubic fullness was related to his bladder. Per RN he had around 600ml urine before urinating and >300 after. Will try tamsulosin and monitor bladder emptying. (6) Chronic bilateral low back pain without sciatica: Status: Acute Assessment and plan: I think his weakness lifting the left leg is related to his chronic back pain related to lumbar spinal stenosis as it started after bending over to put on stockings. He has chronic pain but prefers to avoid pain meds other than APAP. I recommended PT as he lives alone with a large dog, but he is hesitant at this point. (7) Abnormal liver enzymes: Status: Acute Assessment and plan: AST elevation is chronic and along with elevated MCV may indicate alcohol effects. He has stopped drinking. Alk Phos and bili are new. He had mid abdominal pain last week and CT at that time showed some signs of cholecystitis. He no longer has symptoms, benign exam, but the Alk phos and bili haven't normalized. Will follow, get RUQ u/s if these do not normalize. (8) DVT prophylaxis: Status: Acute Assessment and plan: on systemic anticoagulation History of Present Illness History of Present Illness Chief Complaint: suprapubic bloating Narrative: 78 yo M with complex history of right lower leg swelling and pain as well as PAD, hypertension, HFpEF, chronic low back pain associated with spinal stenosis, and BPH who presented with acute suprapubic swelling in the 2 days. He initially presented 03/29, one week ago, with mid abdominal pain. CT A/P was negative but cardiac monitoring revealed new atrial fibrillation. He elected to leave [facility] from the emergency room and was sent home with apixaban and metoprolol. He did not have and bleeding, dizziness, or shortness of breath on these medications, but 2 days ago he started getting suprapubic swelling that he describes as a fist above his pubic bone. At that point he stopped both new medication. He feels like the area above his genitals was bloated, but this has improved since he arrived. He also has had weakness in flexing his left leg at the hip that started after he bent over to put on compression stockings and hurt his back, which has been a chronic issue. He has had chronic pain, swelling, and pink to purple discoloration of his right lower leg and foot. The swelling in the right leg has been even worse in the past, but the left leg swelling is new, and also associated with feeling bloated in his abdomen and making him feel like his belt is tight. He no longer had mid abdominal pain that brought him to ED 03/29. He does have some queaziness after taking mediations He was seen by vascular surgery after having a CTA with runoff of his LE in September of 2023. He had normal ABIs per report and he was advised his leg pain was not from his circulation (he was not given aspirin for PAD). He saw rheumatology who thought he might have complex regional pain. He was drinking 2-3 beers/night but hasn't had any since the first time he was here 1 week ago. Review of Systems All systems reviewed & are unremarkable except as noted in HPI and below Constitutional Constitutional: Denies body ache(s), Denies chills, Denies fever(s), Denies headache(s), Denies poor appetite and Reports weight gain (a few pounds though not eating much) Eyes Eyes: Denies change in vision ENT Ears, Nose, Mouth, and Throat: Denies vertigo, Denies dizziness and Denies headache(s) Cardiovascular Cardiovascular: Denies chest pain, Denies chest pain with activity, Denies lightheadedness, Denies dyspnea, Denies dyspnea on exertion and Denies orthopnea (but can't lay flat due to back pain) Respiratory Respiratory: Denies dyspnea and Denies dyspnea on exertion Gastrointestinal Gastrointestinal: Denies melena, Denies hematochezia, Denies change in stool character, Denies diarrhea, Reports nausea (often feels upset stomach, especially with medication) and Denies vomiting Genitourinary Genitourinary: Denies hematuria and Reports difficulty urinating (has a had time emptying, gets frequency. Saw susannah helps) Neurologic Neurologic: Reports as per HPI, Denies abnormal movements, Denies abnormal speech, Denies behavioral changes, Denies confusion, Denies vertigo, Denies dizziness, Denies headache(s), Reports localized weakness (just left leg with pain) and Denies tremor(s) Psychiatric Psychiatric: Denies behavioral changes and Denies confusion PFSH All Active Problems (Updated 04/05/24 @ 23:04 by Aj Lowery) Abnormal liver enzymes (Acute) DVT prophylaxis (Acute) Bladder wall thickening (Acute) Abdominal pain (Acute) New onset a-fib (Acute) CRPS (complex regional pain syndrome) type I of lower limb (Acute) Diabetes mellitus with diabetic polyneuropathy (Acute) Claudication of right lower extremity (Acute) Septic arthritis of right ankle (Acute) PAD (peripheral artery disease) (Acute) Chronic foot pain (Acute) Positive MIKE (antinuclear antibody) (Acute) Rheumatoid factor positive (Acute) Ankle pain, right (Acute) Hypertension (Chronic) Abnormal electrocardiogram (Acute) Right wrist pain (Acute) CHF (congestive heart failure) (Chronic) Hypertriglyceridemia (Acute) Elevated blood pressure reading without diagnosis of hypertension (Acute) Erectile dysfunction (Acute) Asthma (Acute 06/22/13) Gout (Acute) Joint pain (Acute 06/22/13) Status post carpal tunnel release (Acute) Status post laminectomy (Acute 06/11/16) Right leg swelling (Acute) likely venous insuffi Tick bite (Acute) no sign of disease Back pain (Chronic) deteriorated ?related to fall 6 months ago Knee pain (Acute) Hyperlipidemia with target LDL less than 130 (Acute 06/22/13) Hand joint pain (Acute 06/22/13) Chronic bilateral low back pain without sciatica (Acute 06/11/16) Benign prostatic hyperplasia (Acute 06/22/13) Medical History Asthma Hyperlipidemia Gout Surgical History Open Carpal Tunnel release Neck ortho surgery (09/17/15) LUMBAR SURGERY 12/30/16- [facility] Family History Sister , AGE 72 Diabetes Mother , AGE 94 Hyperlipidemia Father , 64 Essential hypertension Stroke Lung cancer Brother No problems noted. Social History (Updated 04/05/24 @ 22:20 by Aj Lowery) Smoking/Tobacco Use Status: Never Second Hand Exposure: Yes Smoking risk assessment performed?: Yes Alcohol Intake: current Alcohol Intake frequency: a few times a week Alcohol type: beer Drug use: Never Substance use type: does not use Household members: spouse and none Housing: house Pets and animals: Yes Pets and animals: dog(s) Sexually active: Yes Do you think of yourself as: straight/heterosexual Current gender identity: male What is your relationship status?: Panel score (0-1 are the most socially isolated patients): 1 Seatbelt use: always Drive intox or ride w/intox route sales driver: No Do you feel safe at home: Yes Do you feel safe in your relationship?: Yes Additional Social history: Lives with dog in his home in [place]. 2 kids in area who look out for him, 3rd estranged. Lost to cancer in 2022 Meds Allergies and Home Medications Allergies Allergy/AdvReac Type Severity Reaction Status Date / Time shellfish derived Allergy Severe Anaphylaxsi Verified 04/05/24 11:19 s Opioids - Morphine Analogues AdvReac Severe nausea and Verified 04/05/24 11:19 vomiting buprenorphine AdvReac Intermediate Nausea Verified 04/05/24 11:19 spironolactone AdvReac Intermediate Stomach Verified 04/05/24 11:19 pain HORSE SERUM PROTEINS Allergy Intermediate Nasal Uncoded 04/05/24 11:19 congestion Home Medications Medication Instructions Recorded Confirmed Type saw palmetto-pumpkin seed oil 160 5 cap PO DAILY 08/11/14 04/05/24 History mg capsule nebulizers (Mini Plus Nebulizer #1 ea 03/10/18 04/05/24 Rx misc) simvastatin 20 mg tablet 20 mg PO QPM #90 tabs 03/23/23 04/05/24 Rx albuterol sulfate 90 mcg/actuation 2 puff inhalation Q6H PRN 01/13/24 04/05/24 Rx aerosol inhaler (Ventolin HFA) bronchospasm #6.7 grams allopurinol 300 mg tablet 300 mg PO DAILY #90 tabs 01/13/24 04/05/24 Rx ipratropium 0.5 mg-albuterol 3 mg 3 ml inhalation QID PRN shortness 01/13/24 04/05/24 Rx (2.5 mg base)/3 mL nebulization of breath #180 mL soln losartan 25 mg tablet 25 mg PO DAILY #90 tabs 02/09/24 04/05/24 Rx apixaban 5 mg tablet (Eliquis) 5 mg PO BID 30 days #60 tabs 03/29/24 04/05/24 Rx metoprolol tartrate 25 mg tablet 25 mg PO BID 14 days #28 tabs 03/29/24 04/05/24 Rx Exam Narrative Exam Narrative: GEN: Alert and oriented x 4, pleasant and cooperative, gives linear history. No acute distress at rest, but in pain in back with movement HEENT: Head atraumatic. Conjunctiva clear, no icterus. PEERL, EOMI. no rhinorrhea. MMM, OP benign. Neck is supple with no masses or lymphadenopathy, trachea midline LUNGS: Normal effort, slightly crackles just at bases bilaterally posteriorly, otherwise clear. No wheeze. CV: Irregularly irregular with no murmurs, gallops, or rubs. ABD: +BS, soft, NT/ND EXT: 2+ edema to knees bilaterally, pitting. Right leg is purple in feet and pink up to thigh, one 1cm dry scab on anterior miller, otherwise no open wounds. Skin of left leg more normal. Both feet cool, cooler on right. thready pulses in DP bilaterally. Hand joints large but no : no hernias, normal genitalia, normal testicles bilaterally, not tender. I do not appreciate hydrocele or other swelling in the region. MSK: No joint redness or swelling NEURO: CN 2-12 grossly intact. Able to move 4 extremities but 4/5 flexion left hip (a/w pain) vs right. Normal speech and coordination SKIN: No rashes or open wounds, see extremities. PSYCH: normal mood and affect, normal thought process. Results Imaging Abdomen CT scan report/results: report reviewed (1. Small bilateral pleural effusions. 2. Abdominal ascites similar to the prior examination 3. Extensive atherosclerotic disease in the lower extremities with occlusion of the ant tibial, post tibial and peroneal arteries on the right and the anterior tibial and posterior tibial arteries on left) EKG: report reviewed and image reviewed (atrial flutter, no ST-T changes concerning for acute ischemia, similar to 03/29/24 ) Imaging Studies: Abdominal/pelvis soft tissue: Negative ultrasound study for anterior abdominal wall hernia in the area examined. US LE: No ultrasound evidence of DVT in either lower extremity Labs 04/05/24 11:19 04/05/24 11:19 Labs: Laboratory Results - last 24 hr 04/05/24 04/05/24 04/05/24 11:19 11:30 17:37 WBC 7.38 RBC 4.58 Hgb 14.4 Hct 44.2 MCV 97 H MCH 31.4 MCHC 32.6 RDW 14.1 Plt Count 214 MPV 10.9 Immature Gran % 0.3 Neutrophils % 69.6 Lymphocytes % 19.5 Monocytes % 8.7 Eosinophils % 1.2 Basophils % 0.7 Nucleated RBC % 0.0 Absolute Neutrophils 5.14 Absolute Lymphocytes 1.44 Absolute Monocytes 0.64 Absolute Eosinophils 0.09 Absolute Basophils 0.05 PT INR APTT D-Dimer 948 H VBG Lactate 1.6 H Sodium 141 Potassium 4.5 Chloride 104 Carbon Dioxide 26.2 Anion Gap 10.8 BUN 21 H Creatinine 1.1 Est GFR (CKD-EPI 2020) 69.57 Glucose 113 H Calcium 9.5 Magnesium 2.1 Total Bilirubin 1.2 H AST 42 H ALT 51 Alkaline Phosphatase 196 H Troponin I < 50 NT-Pro-B Natriuret Pep 4275 H Total Protein 7.2 Albumin 3.9 Lipase 38 Urine Color Yellow Urine Clarity Clear Urine pH 5.5 Ur Specific [place] >= 1.030 H Urine Protein Trace Urine Ketones Trace H Urine Blood Negative Urine Nitrite Negative Urine Bilirubin Small H Urine Urobilinogen 0.2 Ur Leukocyte Esterase Negative Urine Glucose Negative Add-On Test Request Cancelled 04/05/24 17:40 WBC RBC Hgb Hct MCV MCH MCHC RDW Plt Count MPV Immature Gran % Neutrophils % Lymphocytes % Monocytes % Eosinophils % Basophils % Nucleated RBC % Absolute Neutrophils Absolute Lymphocytes Absolute Monocytes Absolute Eosinophils Absolute Basophils PT 12.7 H INR 1.3 H APTT 26.1 D-Dimer VBG Lactate Sodium Potassium Chloride Carbon Dioxide Anion Gap BUN Creatinine Est GFR (CKD-EPI 2020) Glucose Calcium Magnesium Total Bilirubin AST ALT Alkaline Phosphatase Troponin I < 50 NT-Pro-B Natriuret Pep Total Protein Albumin Lipase Urine Color Urine Clarity Urine pH Ur Specific [place] Urine Protein Urine Ketones Urine Blood Urine Nitrite Urine Bilirubin Urine Urobilinogen Ur Leukocyte Esterase Urine Glucose Add-On Test Request Last Vital Signs Temp 36.6 C 04/05/24 11:12 Pulse 83 04/05/24 19:31 Resp 14 04/05/24 19:40 BP 115/73 04/05/24 19:31 Pulse Ox 97 04/05/24 19:40 Time Spent Time spent with Patient: >75 minutes Time was spent: preparing to see the patient(eg.review tests), obtaining and/or reviewing separately otained hiistory, ordering medications,tests, procedures, referring, communicating with other health career development coordinator, indepentently interpreting results and counseling the patient
[2024-04-05] MEDS: Metoprolol 25 MG TAB PO (22:58)
[2024-04-05] MEDS: Atorvastatin 40 MG TAB 80 MG PO (22:59)
[2024-04-05] MEDS: Tamsulosin 0.4 MG CAPCR PO (23:48)
[2024-04-06] VITALS (34 sets, daily range): BP systolic 90–143; BP diastolic 38–107; PULSE 51–149; RESP 13–19; TEMP 36.6–37.1; O2SAT 91–99
[2024-04-06 00:58] LABS: PTT Activated > 155.0 sec (23.6-32.8)
[2024-04-06 06:41] LABS: INR 1.3 (0.9-1.1)
[2024-04-06 06:44] LABS: Calculated LDL 47 mg/dL (<100); Cholesterol 93 mg/dL (<200); HDL Cholesterol 34 mg/dL (40-60); Triglyceride 63 mg/dL (<150)
[2024-04-06 06:46] LABS: ALT 50 U/L (16-63); AST 49 U/L (15-37); Albumin 3.7 g/dL (3.4-5.0); Alkaline Phosphatase 192 U/L (46-116); Bilirubin, Direct 0.5 mg/dL (0.0-0.2); Total Protein 6.9 g/dL (6.4-8.2)
[2024-04-06 06:47] LABS: ALT 50 U/L (16-63); AST 49 U/L (15-37); Albumin 3.6 g/dL (3.4-5.0); Alkaline Phosphatase 193 U/L (46-116); Anion Gap 6.3 mmol/L (3-11); BUN 23 mg/dL (7-18); CO2 30.7 mmol/L (21.0-32.0); CREATININE 1.2 mg/dL (0.70-1.30); Calcium 9.2 mg/dL (8.5-10.1); Chloride 103 mmol/L (98-107); Estimated GFR 62.67 (mL/min/1.73m2); Glucose 91 mg/dL (74-106); Potassium 4.2 mmol/L (3.5-5.1); Sodium 140 mmol/L (136-145)
[2024-04-06 07:04] LABS: PTT Activated 113.1 sec (23.6-32.8)
[2024-04-06] MEDS: Apixaban 5 MG TAB PO ×2 (08:12→19:54)
[2024-04-06] MEDS: Metoprolol 25 MG TAB PO ×2 (08:12→10:08)
[2024-04-06] MEDS: Pantoprazole 40 MG TABCR PO (08:12)
[2024-04-06] MEDS: Allopurinol 300 MG TAB PO (08:12)
[2024-04-06] MEDS: Aspirin 81 MG CHEW CH (08:13)
[2024-04-06] MEDS: Bumetanide 1 MG TAB PO (08:13)
[2024-04-06] MEDS: Losartan 25 MG TAB PO (08:13)
--- NOTE | 2024-04-06 08:43 | INITIAL_ITS ---
Date of service: 04/06/24 Time of Service: 08:43 Care Management Initial Assmt Initial Assessment Reason for Hospitalization: new onset afib Functional Status/Living Situation Patient Presentation: Rocco was sitting up in bed visiting with his daughter Katty when CM met with him. He was pleasant in interaction and agreeable to conversation. Rocco is in the ICU as a Medical-surgical overflow patient. He was admitted last night with newer onset atrial fib/flutter, CHF, and PAD. He is , having lost his last year. Rocco shared that he has pain and difficulty with ambulation and uses a cane for support. His daughter expressed concerns about Rocco and verbalized that she did not want her Dad to discharge home until he was stable with ambulation and wouldn't fall. CM asked Rocco if he would be willing to go to short term rehab if recommended and he stated that the problem with his legs would not likely improve with PT and might actually get worse. Rocco has both peripheral vascular disease and spinal stenosis. He stated he has fallen at home in the past. Rocco is still tachycardic intermittently and his SBPs have been between 90 and 120 for the most part. Rocco had advanced directives on file, however his healthcare agent was his . CM offered to assist with completing new directives and Rocco agreed. [place] Advanced Directives were completed, witnessed, filed and copies were made and distibuted. Town of Residence: [place] Resides with: Alone Significant Other/Family: Local Natural Supports: Son Ector and daughter Katty Employment Status: Retired Instrumental Activities of Daily Living (ADLs): Independent Medications Medication Management: Issues/Barriers with Cost (prescription for Eliquis with a cost >$500. Daughter contacted [employer] and is working on [facility] [employer]) Physical Functioning/Mobility Assistive Device: uses a cane Advance Directives Advance Directives: Do you have an Advance Directive: Y 11/24/16 09:04 AD On File at [facility]: Y 10/04/15 15:50 Date Asked 11/14/19 11/14/19 12:31 AD Date Reviewed 04/05/24 04/05/24 11:34 COLST On File at [facility] COLST Date Scanned Comment: Domi Sterling [facility] Code Status Resuscitation Status Full Code Code Status Comment: Advanced directives state DNR/DNI. Forms updated and Rocco is now a DNR with a trial of intubation Portal Pt does not currently have a portal and education provided: Yes Insurance Coverage/Financial Issues Insurance: Medicare BC/BS ACO Member: Yes Care Team Visit Care Team Role Provider Type Ludwin Heaton MD Primary Care Provider [facility] STAFF PHYSICIAN Chapis Silvestre, KNOWLEDGE ARCHITECT Emergency Provider NURSE PRACTITIONER Aj Lowery Admit Provider [facility] STAFF PHYSICIAN Attending Provider Discharge Potential Discharge Needs: PCP F/U Appt Anticipated Barriers to Discharge: None Identified Patient/Family Education Needs: Review discharge instructions, discuss Ask Me Three and Other (activity, limitations, follow up plan) Transportation: Private vehicle Plan: Anticipate Rocco will be discharged home with no new services. He will follow up with his PCP and plan of care and transport with family. CM will follow and support discharge needs. PFSH All Active Problems (Updated 04/05/24 @ 23:04 by Aj Lowery) Abnormal liver enzymes (Acute) DVT prophylaxis (Acute) Bladder wall thickening (Acute) Abdominal pain (Acute) New onset a-fib (Acute) CRPS (complex regional pain syndrome) type I of lower limb (Acute) Diabetes mellitus with diabetic polyneuropathy (Acute) Claudication of right lower extremity (Acute) Septic arthritis of right ankle (Acute) PAD (peripheral artery disease) (Acute) Chronic foot pain (Acute) Positive MIKE (antinuclear antibody) (Acute) Rheumatoid factor positive (Acute) Ankle pain, right (Acute) Hypertension (Chronic) Abnormal electrocardiogram (Acute) Right wrist pain (Acute) CHF (congestive heart failure) (Chronic) Hypertriglyceridemia (Acute) Elevated blood pressure reading without diagnosis of hypertension (Acute) Erectile dysfunction (Acute) Asthma (Acute 06/22/13) Gout (Acute) Joint pain (Acute 06/22/13) Status post carpal tunnel release (Acute) Status post laminectomy (Acute 06/11/16) Right leg swelling (Acute) likely venous insuffi Tick bite (Acute) no sign of disease Back pain (Chronic) deteriorated ?related to fall 6 months ago Knee pain (Acute) Hyperlipidemia with target LDL less than 130 (Acute 06/22/13) Hand joint pain (Acute 06/22/13) Chronic bilateral low back pain without sciatica (Acute 06/11/16) Benign prostatic hyperplasia (Acute 06/22/13) Medical History Asthma Hyperlipidemia Gout Surgical History Open Carpal Tunnel release Neck ortho surgery (09/17/15) LUMBAR SURGERY 12/30/16- RADHA MAURICE Family History Sister , AGE 72 Diabetes Mother , AGE 94 Hyperlipidemia Father , 64 Essential hypertension Stroke Lung cancer Brother No problems noted. Social History (Updated 04/05/24 @ 22:20 by Aj Lowery) Smoking/Tobacco Use Status: Never Second Hand Exposure: Yes Smoking risk assessment performed?: Yes Alcohol Intake: current Alcohol Intake frequency: a few times a week Alcohol type: beer Drug use: Never Substance use type: does not use Household members: spouse and none Housing: house Pets and animals: Yes Pets and animals: dog(s) Sexually active: Yes Do you think of yourself as: straight/heterosexual Current gender identity: male What is your relationship status?: Panel score (0-1 are the most socially isolated patients): 1 Seatbelt use: always Drive intox or ride w/intox vending route driver: No Do you feel safe at home: Yes Do you feel safe in your relationship?: Yes Additional Social history: Lives with dog in his home in [place]. 2 kids in area who look out for him, 3rd estranged. Lost to cancer in 2022 SDOH(Care Management) Screening Will the Patient Participate in the Screening?: Yes Do you worry about having a steady place to live?: no Problems where you live: no known problems In the past 12 months, have you had to go without electric, gas, oil or water in your home?: no Have you or anyone in your house had to go without enough food to eat?: no Has lack of transportation kept you from medical appointments or from doing thin gs needed for daily living?: no Has anyone in your support network made you feel unsafe for any reason?: no
--- NOTE | 2024-04-06 11:12 | PHA.REVIEW2 ---
Pharmacy Admission Review Admission Clinical Review Admission Pharmacy Review: (Updated 04/05/24 @ 23:04 by Aj Lowery) Abnormal liver enzymes (Acute) DVT prophylaxis (Acute) New onset a-fib (Acute) PAD (peripheral artery disease) (Acute) Asthma (Acute 06/22/13) Chronic bilateral low back pain without sciatica (Acute 06/11/16) Benign prostatic hyperplasia (Acute 06/22/13) shellfish derived Allergy (Severe, Verified 04/05/24 11:19) Anaphylaxsis Opioids - Morphine Analogues Adverse Reaction (Severe, Verified 04/05/24 11:19) nausea and vomiting buprenorphine Adverse Reaction (Intermediate, Verified 04/05/24 11:19) Nausea spironolactone Adverse Reaction (Intermediate, Verified 04/05/24 11:19) Stomach pain HORSE SERUM PROTEINS Allergy (Intermediate, Uncoded 04/05/24 11:19) Nasal congestion Resuscitation Status Full Code Height 6 ft Weight 94.2 kg Comments Comments/Follow Ups: Per morning meeting, focus is getting HR under control Pharmacy Admission Review Renal Dosing Renal Dosing: BUN 23 mg/dL (7-18) H 04/06/24 05:56 Creatinine 1.2 mg/dL (0.70-1.30) 04/06/24 05:56 Medications needing adjustments: Reviewed (CrCl 62.4 mL/min) List of meds needing interventions: Current medications are okay Anticoagulation Anticoagulation: Hgb 14.4 g/dL (13.5-17.5) 04/05/24 11:19 Hct 44.2 % (40.0-50.0) 04/05/24 11:19 Plt Count 214 10^3/uL (130-400) 04/05/24 11:19 INR 1.3 (0.9-1.1) H 04/06/24 05:56 Creatinine 1.2 mg/dL (0.70-1.30) 04/06/24 05:56 DVT Prophylaxis: Reviewed Medications: Apixaban (5mg PO BID) Relevant Labs Relevant Labs: Sodium 140 mmol/L (136-145) 04/06/24 05:56 Potassium 4.2 mmol/L (3.5-5.1) 04/06/24 05:56 Chloride 103 mmol/L (98-107) 04/06/24 05:56 Magnesium 2.1 mg/dL (1.8-2.4) 04/05/24 11:19 Electrolytes, C-Reactive P, ESR: Reviewed (INR 1.3, AST increased from 41 to 49) DM Control DM Control: Glucose 91 mg/dL (74-106) 04/06/24 05:56 Hemoglobin A1c 6.0 % (<5.7) H 04/06/24 05:56 DM Control: Reviewed Insulin Dosing, Diabetic Medication: Newly diagnosed? No orders for diabetic meds Cardiac Review Cardiac Review: Troponin I < 50 ng/L (< or =60) 04/05/24 17:40 NT-Pro-B Natriuret Pep 4275 pg/mL (<300) H 04/05/24 11:19 Blood Pressure 143/107 0820 Blood Pressure 131/100 0812 Blood Pressure 122/103 0801 Blood Pressure 133/89 0600 Blood Pressure 114/84 0401 Blood Pressure 119/86 0212 BP, HR, EF%: Reviewed (BP 143/107 and HR 147) QTc Review QTc: Reviewed (542 from 04/05/24) IV to PO Switch IV Medications: Reviewed Home Meds Home Med List reviewed: Reviewed Relevent Home Meds Not ordered & why?: Saw palmetto and simvastatin (was increased to high intensity atorvastatin during this admission) Current Meds Current Medication Order Review: Reviewed Comments Comments/Follow Ups: Per morning meeting, focus is getting HR under control
[2024-04-06] MEDS: Metoprolol 25 MG TAB 50 MG PO ×2 (13:42→19:54)
--- NOTE | 2024-04-06 13:48 | W.PM.PROGNOT ---
Date of Service Date of service: 04/06/24 Time of Service: 13:48 Assessment and Plan Assessment and plan (1) New onset a-fib: Status: Acute Assessment and plan: -Current EKG c/w flutter, was in Atrial fibrillation last week. -He elected outpatient treatment initially, but stopped the apixaban and metoprolol due to swelling in bladder area. -Had nl TSH, negative troponins -had been on heparin drip on admission but has since been transitioned back to eliquis -asymptomatic on lopressor 25mg TID, but has been increased to 50mg TID given that he experienced significantly elevated HR with ambulation up to about 150bpm -will continue to monitor HR and titrate beta miguel as needed (2) PAD (peripheral artery disease): Status: Acute Assessment and plan: -Reviewing the CT with moody in comparison with the report from the same study on 09/03/23, it is not clear that there is any acute change. -His discoloration, shiny skin, and cold of the RLE is not new and has been evaluated with multiple specialties including vascular surgery. 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 -he was starrted on 81mg aspirin and a high intensity statin by admitting provider, will continue -will have outpatient follow up with vascular surgery (3) CHF (congestive heart failure): Status: Chronic Assessment and plan: -Based on the pleaural effusions, increasing BNP, and increased LE edema that is now bilateral, the atrial arrythmia may be causing some mild CHF. -Echocardiogram ordered and completed, results pending -EKG and troponins are not consistent with ACS (4) Asthma: Status: Acute Assessment and plan: -denies increase symptoms since starting metoprolol, so I think we can safely continue this. (5) Benign prostatic hyperplasia: Status: Acute Assessment and plan: -presenting complaint of suprapubic fullness was related to his bladder. -Per RN he had around 600ml urine before urinating and >300 after. -started on tamsulosin on admission, will continue (6) Chronic bilateral low back pain without sciatica: Status: Acute Assessment and plan: -weakness lifting the left leg is related to his chronic back pain related to lumbar spinal stenosis as it started after bending over to put on stockings. -has chronic pain but prefers to avoid pain meds other than APAP. -I recommended PT as he lives alone with a large dog, but he is hesitant at this point. (7) Abnormal liver enzymes: Status: Acute Assessment and plan: AST elevation is chronic and along with elevated MCV may indicate alcohol effects. He has stopped drinking. Alk Phos and bili are new. He had mid abdominal pain last week and CT at that time showed some signs of cholecystitis. He no longer has symptoms, benign exam, but the Alk phos and bili haven't normalized. Will follow, get RUQ u/s if these do not normalize. (8) DVT prophylaxis: Status: Acute Assessment and plan: on systemic anticoagulation Subjective Subjective Interval history since last seen: Patient states that he is feeling much better today as compared to admission. He understands that is important for him to take his metoprolol and Eliquis going forward, and they were all likely contributors and him developing urinary retention which is now resolved with Flomax. He also understands that we are continuing to titrate his dose of metoprolol as his heart remains high especially with ambulation. Exam Narrative Exam Narrative: Well-appearing older gentleman laying in bed in no acute distress, ANO x 4, heart irregularly irregular with resting rate about 100 bpm, lungs clear to auscultation bilaterally, abdomen soft, nontender, nondistended, +1 pitting edema bilateral lower extremities to the knees, signs of chronic PAD worse on the right than the left with right showing purpleish discoloration in the foot improving to about mid thigh Objective Last Vital Signs Temp 98.8 F 04/06/24 13:09 Pulse 147 H 04/06/24 08:20 Resp 19 04/06/24 08:20 BP 143/107 H 04/06/24 08:20 Pulse Ox 98 04/06/24 00:00 Laboratory Results - last 24 hr 04/05/24 04/05/24 04/06/24 17:37 17:40 00:13 PT 12.7 H INR 1.3 H APTT 26.1 > 155.0 H* Sodium Potassium Chloride Carbon Dioxide Anion Gap BUN Creatinine Est GFR (CKD-EPI 2020) Glucose Hemoglobin A1c Calcium Total Bilirubin Conjugated Bilirubin AST ALT Alkaline Phosphatase Troponin I < 50 Total Protein Albumin Triglycerides Total Cholesterol LDL Cholesterol, Calc HDL Cholesterol Add-On Test Request Cancelled 0604/06/24 04/06/24 05:35 05:56 05:56 PT 13.0 H INR 1.3 H APTT 113.1 H* Sodium Cancelled 140 Potassium Cancelled 4.2 Chloride Cancelled 103 Carbon Dioxide Cancelled 30.7 Anion Gap Cancelled 6.3 BUN Cancelled 23 H Creatinine Cancelled 1.2 Est GFR (CKD-EPI 2020) Cancelled 62.67 Glucose Cancelled 91 Hemoglobin A1c 6.0 H Calcium Cancelled 9.2 Total Bilirubin 1.0 1.0 Conjugated Bilirubin 0.5 H AST 49 H ALT Alkaline Phosphatase Troponin I Total Protein Albumin Triglycerides Total Cholesterol LDL Cholesterol, Calc HDL Cholesterol Add-On Test Request 04/06/24 04/06/24 04/06/24 05:56 05:56 05:56 PT INR APTT Sodium Potassium Chloride Carbon Dioxide Anion Gap BUN Creatinine Est GFR (CKD-EPI 2020) Glucose Hemoglobin A1c Calcium Total Bilirubin Conjugated Bilirubin AST 49 H ALT 50 50 Alkaline Phosphatase 193 H 192 H Troponin I Total Protein 7.0 Albumin Triglycerides Total Cholesterol LDL Cholesterol, Calc HDL Cholesterol Add-On Test Request 04/06/24 04/06/24 05:56 05:56 PT INR APTT Sodium Potassium Chloride Carbon Dioxide Anion Gap BUN Creatinine Est GFR (CKD-EPI 2020) Glucose Hemoglobin A1c Calcium Total Bilirubin Conjugated Bilirubin AST ALT Alkaline Phosphatase Troponin I Total Protein 6.9 Albumin 3.6 3.7 Triglycerides 63 Total Cholesterol 93 LDL Cholesterol, Calc 47 HDL Cholesterol 34 L Add-On Test Request PAWSS Have you Been Recently Intoxicated or Drunk Within the Last 30 days?: No Have you Ever Experienced Previous Episodes of Alcohol Withdrawal?: No Have you ever Experienced Withdrawal Seizures?: No Have you ever Experienced Delirium Tremens(DT)s?: No Have you ever undergone Alcohol Rehabilitation Treatment (i.e, inpt ot outpatient treatment programs)?: No Have you ever Experienced Blackouts?: No Have you ever Combined Alcohol with other Downers within the last 90 days?: No Have you ever Combined Alcohol with any other Substance of Abuse during the last 90 days?: No Positive Blood Alcohol level on Presentation? [PCS.BAL]: No Evidence of Increased Autonomic Activity (i.e. HR>120, tremor, sweating, agitation, nausea)?: No Result: 0 Time Spent with Patient Time Spent with Patient: >50 minutes Time was spent: preparing to see the patient(eg.review tests), obtaining and/or reviewing separately otained hiistory, ordering medications,tests, procedures, referring, communicating with other health customer care coordinator, indepentently interpreting results, counseling the patient and care coordination
[2024-04-06] MEDS: Tamsulosin 0.4 MG CAPCR PO (19:54)
[2024-04-06] MEDS: Normal Saline Flush 10 ML SYR IVP (19:55)
[2024-04-06] MEDS: Atorvastatin 40 MG TAB 80 MG PO (19:55)
[2024-04-06] MEDS: Acetaminophen 325 MG TAB 650 MG PO (21:16)
[2024-04-07] VITALS (21 sets, daily range): BP systolic 114–133; BP diastolic 70–99; PULSE 47–146; RESP 11–23; TEMP 36.7–37; O2SAT 92–98
[2024-04-07] MEDS: Acetaminophen 325 MG TAB 650 MG PO ×3 (04:22→21:30)
[2024-04-07 06:44] LABS: HCT 43.5 % (40.0-50.0); HGB 14.5 g/dL (13.5-17.5); MCH 31.7 pg (27.0-33.0); MCHC 33.3 % (32.0-36.0); MCV 95 fL (80-95); MPV 11.5 fL (8.0-11.0); Platelet Count 190 10^3/uL (130-400); RBC 4.57 10^6/uL (4.36-5.78); RDW 14.3 % (11.8-14.1); RDW-SD 49.4 fL; WBC 5.91 10^3/uL (4.4-10.8)
[2024-04-07 07:23] LABS: ALT 47 U/L (16-63); AST 45 U/L (15-37); Albumin 3.4 g/dL (3.4-5.0); Alkaline Phosphatase 184 U/L (46-116); Anion Gap 8.6 mmol/L (3-11); BUN 25 mg/dL (7-18); CO2 29.4 mmol/L (21.0-32.0); CREATININE 1.3 mg/dL (0.70-1.30); Chloride 104 mmol/L (98-107); Estimated GFR 56.93 (mL/min/1.73m2); Glucose 96 mg/dL (74-106); Sodium 142 mmol/L (136-145); Total Protein 6.9 g/dL (6.4-8.2)
[2024-04-07] MEDS: Metoprolol 25 MG TAB 50 MG PO (07:28)
[2024-04-07] MEDS: Normal Saline Flush 10 ML SYR IVP (07:28)
[2024-04-07] MEDS: Bumetanide 1 MG TAB PO (07:29)
[2024-04-07] MEDS: Pantoprazole 40 MG TABCR PO (07:29)
[2024-04-07] MEDS: Apixaban 5 MG TAB PO ×2 (07:29→19:53)
[2024-04-07] MEDS: Aspirin 81 MG CHEW CH (07:29)
[2024-04-07] MEDS: Losartan 25 MG TAB PO (07:29)
[2024-04-07] MEDS: Allopurinol 300 MG TAB PO (07:29)
--- NOTE | 2024-04-07 08:42 | PDOC.CMPRO ---
Date of service: 04/07/24 Time of Service: 08:43 Care Management Progress Note Progress Note Text Progress Note Text: S/O:Rocco was sitting up in bed visiting with his daughter when CM met with him. He appeared to be in good spirits and was joking with his nurse and CM as well as his daughter. Rocco is waiting to have a PT evaluation. He has chronic leg pain secondary to spinal stenosis as well as PAD. This has resulted in ambulatory diffivculties as well as some falls. His daughter met with CM earlier in the day and expressed concern about her father's discharge home. She is concerned that he will fall and that no one will know. CM had discussed the purchase of a Life Alert/Life Line type product yesterday with them both, but Rocco was resistant to the idea. Today CM raised the possibility of installing cameras in the public areas of the house where Rocco is most often found, such as the kitchen and living room. Katty shared that she and her brother had discussed that and would pursue it if Rocco agreed. Katty also asked about short term rehab. With chronic vs acute ambulatory issues, it will be important to have the expertise of PT to make a recommendation. A: Rocco is a 78 year old man admitted on 04/05/24 with atrial flutter Discharge Potential Discharge Needs: Consult Consult Services Needed: Cardiology, Imaging/labs, PCP F/U Appt and Other (may need compliance monitor ) Anticipated Barriers to Discharge: None Identified Patient/Family Education Needs: Review discharge instructions, discuss Ask Me Three and Other (medications, activity, limitations, follow up plan) Transportation: Private vehicle Plan: Anticipate Rocco will be discharged home with no new services when medically cleared. He will follow up with Cardiology, and his PCP and transport with family. CM will continue to support discharge ploanning needs. SDOH(Care Management) Screening Will the Patient Participate in the Screening?: Yes Do you worry about having a steady place to live?: no Problems where you live: no known problems In the past 12 months, have you had to go without electric, gas, oil or water in your home?: no Have you or anyone in your house had to go without enough food to eat?: no Has lack of transportation kept you from medical appointments or from doing things needed for daily living?: no Has anyone in your support network made you feel unsafe for any reason?: no
[2024-04-07] MEDS: LORazepam 0.5 MG TAB PO (09:15)
[2024-04-07] MEDS: Metoprolol 50 MG TAB PO (09:16)
--- NOTE | 2024-04-07 12:01 | PGE_ITS ---
Date of Service Date of service: 04/07/24 Time of Service: 12:01 Assessment and Plan Assessment and plan (1) New onset a-fib: Status: Acute Assessment and plan: -Current EKG c/w flutter, was in Atrial fibrillation last week. -He elected outpatient treatment initially, but stopped the apixaban and metoprolol due to swelling in bladder area. -Had nl TSH, negative troponins -had been on heparin drip on admission but has since been transitioned back to eliquis -asymptomatic on lopressor 25mg TID, but was increased to 50mg TID on 04/06 given that he experienced significantly elevated HR with ambulation up to about 150bpm -dose increase again, now to 100mg lopressor PO BID as of AM 04/07 due to resting HR 90-100 but 120-130s with ambulation -will continue to monitor HR and titrate beta miguel as needed (2) PAD (peripheral artery disease): Status: Acute Assessment and plan: -Reviewing the CT with moody in comparison with the report from the same study on 09/03/23, it is not clear that there is any acute change. -His discoloration, shiny skin, and cold of the RLE is not new and has been evaluated with multiple specialties including vascular surgery. 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 -he was starrted on 81mg aspirin and a high intensity statin by admitting provider, will continue -will have outpatient follow up with vascular surgery (3) CHF (congestive heart failure): Status: Chronic Assessment and plan: -Based on the pleaural effusions, increasing BNP, and increased LE edema that is now bilateral, the atrial arrythmia may be causing some mild CHF. -Echocardiogram ordered and completed, results pending -EKG and troponins are not consistent with ACS (4) Asthma: Status: Acute Assessment and plan: -denies increase symptoms since starting metoprolol, so I think we can safely continue this. (5) Benign prostatic hyperplasia: Status: Acute Assessment and plan: -presenting complaint of suprapubic fullness was related to his bladder. -Per RN he had around 600ml urine before urinating and >300 after. -started on tamsulosin on admission, will continue (6) Chronic bilateral low back pain without sciatica: Status: Acute Assessment and plan: -weakness lifting the left leg is related to his chronic back pain related to lumbar spinal stenosis as it started after bending over to put on stockings. -has chronic pain but prefers to avoid pain meds other than APAP. -I recommended PT as he lives alone with a large dog, but he is hesitant at this point. (7) Abnormal liver enzymes: Status: Acute Assessment and plan: AST elevation is chronic and along with elevated MCV may indicate alcohol effects. He has stopped drinking. Alk Phos and bili are new. He had mid abdominal pain last week and CT at that time showed some signs of cholecystitis. He no longer has symptoms, benign exam, but the Alk phos and bili haven't normalized. Will follow, get RUQ u/s if these do not normalize. (8) DVT prophylaxis: Status: Acute Assessment and plan: on systemic anticoagulation Subjective Subjective Interval history since last seen: Patient states that he is stressed today and that his legs are hurting, otherwise he has no other complaints or concerns at this time. Exam Narrative Exam Narrative: Well-appearing older gentleman laying in bed in no acute distress, ANO x 4, heart irregularly irregular with resting rate about 100 bpm, lungs clear to auscultation bilaterally, abdomen soft, nontender, nondistended, +1 pitting edema bilateral lower extremities to the knees, signs of chronic PAD worse on the right than the left with right showing purpleish discoloration in the foot improving to about mid thigh Objective Last Vital Signs Temp 97.9 F 04/06/24 17:05 Pulse 47 L 04/07/24 04:02 Resp 13 04/07/24 05:00 BP 114/83 04/07/24 04:02 Pulse Ox 98 04/07/24 05:00 Laboratory Results - last 24 hr 04/07/24 06:10 WBC 5.91 RBC 4.57 Hgb 14.5 Hct 43.5 MCV 95 MCH 31.7 MCHC 33.3 RDW 14.3 H Plt Count 190 MPV 11.5 H Sodium 142 Potassium 4.0 Chloride 104 Carbon Dioxide 29.4 Anion Gap 8.6 BUN 25 H Creatinine 1.3 Est GFR (CKD-EPI 2020) 56.93 Glucose 96 Calcium 9.0 Total Bilirubin 1.0 AST 45 H ALT 47 Alkaline Phosphatase 184 H Total Protein 6.9 Albumin 3.4 PAWSS Have you Been Recently Intoxicated or Drunk Within the Last 30 days?: No Have you Ever Experienced Previous Episodes of Alcohol Withdrawal?: No Have you ever Experienced Withdrawal Seizures?: No Have you ever Experienced Delirium Tremens(DT)s?: No Have you ever undergone Alcohol Rehabilitation Treatment (i.e, inpt ot outpatient treatment programs)?: No Have you ever Experienced Blackouts?: No Have you ever Combined Alcohol with other Downers within the last 90 days?: No Have you ever Combined Alcohol with any other Substance of Abuse during the last 90 days?: No Positive Blood Alcohol level on Presentation? [PCS.BAL]: No Evidence of Increased Autonomic Activity (i.e. HR>120, tremor, sweating, agitation, nausea)?: No Result: 0 Time Spent with Patient Time Spent with Patient: >50 minutes Time was spent: preparing to see the patient(eg.review tests), obtaining and/or reviewing separately otained hiistory, ordering medications,tests, procedures, referring, communicating with other health career representative, indepentently interpreting results, counseling the patient and care coordination
[2024-04-07] MEDS: Diclofenac 1% Gel 100 GM TUBE TP ×3 (14:00→19:55)
--- NOTE | 2024-04-07 14:14 | W.NUTRFU ---
Date of service: 04/06/24 Time of Service: 15:00 Nutrition Note NOTE: Visited with Rocco for routine nutrition screening. Pt with noted shelfish allergy. Fair to good po intake at meals this admission. Weight history shows stable weight and pt confirms no concerns with significant wt changes recently. Pt was initially ordered for fluid restriction and low sodium cardiac diet order. I reviewed my goal to change order to heart healthy and CHO consistent due to history of diabetes (dx november 2023) and most recent A1C was 6.0%. Pt was suprised at this and denied being diagnosed with diabetes. I reviewed his current A1c and that this is at least congruent with pre-diabetes. Pt states his sister a horrible due to complications of diabetes and this news took him by surprise today. Asssured him his glucose is looking good currently and no need for drastic interventions at this time except getting back to a healthy baseline and working at lifestyle habits that can help delay or prevent future concerns. I will monitor pt's glucose trends, intake, wt and will provide education during his admission on glucose control and eating to keep A1C down to goal. Time Spent in Nutritional Counseling and Treatment: 15 minutes
--- NOTE | 2024-04-07 14:40 | PT.INIE ---
PT Notes Visit Reasons: A,Flutter RVR,CHF,Acuet onchronic PADpleural eff Physical Therapy Inpatient Initial Evaluation Date: 04/07/2024 Referring Doctor: Jules Charles MD PT Orders: PT CONSULT: Eval/Treat Precautions: Fall. Standard. Activity as tolerated. Patient Profile/Admitting Diagnosis: Patient is a 78-year-old male with past medical history of sided L3-L4 left-sded foraminal stenosis, S/P hemilaminectomy of L3-L4 in , lumbar spondylosis, and spinal stenosis who presented to the ED on 04/05/2024 for complaints of chest pain, suprapubic/scrotal pain, and low back pain accompanied by radiating pain from side of L knee to the left thigh. Patient is admitted for management of new onset AF, PAD, CHF, asthma, benign prostatic hyperplasia, chroninc LBP, abnomal liver enzymes. PMHX: All Active Problems (Updated 04/05/24 @ 23:04 by Aj Lowery) Abnormal liver enzymes (Acute) DVT prophylaxis (Acute) Bladder wall thickening (Acute) Abdominal pain (Acute) New onset a-fib (Acute) CRPS (complex regional pain syndrome) type I of lower limb (Acute) Diabetes mellitus with diabetic polyneuropathy (Acute) Claudication of right lower extremity (Acute) Septic arthritis of right ankle (Acute) PAD (peripheral artery disease) (Acute) Chronic foot pain (Acute) Positive MIKE (antinuclear antibody) (Acute) Rheumatoid factor positive (Acute) Ankle pain, right (Acute) Hypertension (Chronic) Abnormal electrocardiogram (Acute) Right wrist pain (Acute) CHF (congestive heart failure) (Chronic) Hypertriglyceridemia (Acute) Elevated blood pressure reading without diagnosis of hypertension (Acute) Erectile dysfunction (Acute) Asthma (Acute 06/22/13) Gout (Acute) Joint pain (Acute 06/22/13) Status post carpal tunnel release (Acute) Status post laminectomy (Acute 06/11/16) Right leg swelling (Acute) likely venous insuffi Tick bite (Acute) no sign of disease Back pain (Chronic) deteriorated ?related to fall 6 months agoKnee pain (Acute) Hyperlipidemia with target LDL less than 130 (Acute 06/22/13) Hand joint pain (Acute 06/22/13) Chronic bilateral low back pain without sciatica (Acute 08/10/16) Benign prostatic hyperplasia (Acute 06/22/13) Medical History Asthma Hyperlipidemia Gout Surgical History Open Carpal Tunnel release Neck ortho surgery (09/17/15) LUMBAR SURGERY 12/30/16- [facility] Social History/Home Situation: Lives alone in a private home with several steps to enter. Daughter lives half an hour away. Still grieving passing of . Modified independent for all mobility ADl performance using a single point cane. Equipment Owned/DME: S[facility] Subjective: Patient report he could not lift L lower extremity to move it to the side of the bed to sit up and to go back lie down. Asked if he could use something to help. Nurse Carlyn came in to ask for the benefit of a leg hospital unit coordinator and it has worked so that has increasingly far. Patient said that he has intermittent loss of sensation and pain in the L LE that has increasingly interfered with his mobility. He complains of pain radiating from the side of his knee that goes up n the side of thigh when he moves the L leg. He got anxious that he could not feel where his left foot was going atthe start if the walking activity. Objective: General Observation: Resting in bed. Telemetry monitoring in place. Mental Status: Alert and oriented as to person, place, time, and purpose. Able to pay attention, focus, and respond appropriately. Pain: 7-8/10 in the low back and the L thigh and leg aggravated with movement Vital Signs: HR highes of 137 bpm right after walking activity ROM: Right Upper Extremity: Shoulder Flexion WFL. Shoulder abduction WFL. Elbow flexion WFL. Wrist flexion WFL. Functional opening and closing of hand WFL. Left Upper Extremity: Shoulder Flexion WFL. Shoulder abduction WFL. Elbow flexion WFL. Wrist flexion WFL. Functional opening and closing of hand WFL. Right Lower Extremity: Hip flexion WFL. Hip abduction WFL. Knee flexion WFL. Ankle dorsiflexion WFL. Ankle plantarflexion WFL. Left Lower Extremity: Hip flexion about 10 degrees. Hip abduction unable without help due to pain and weakness. Knee flexion about 20 degrees. Ankle dorsiflexion to neutral only. Ankle plantarflexion WFL. Strength: Right Upper Extremity: Shoulder flexors 4-/5. Shoulder abductors 4-/5. Elbow flexors 4-/5. Elbow extensors 4-/5. Horse Riding Coach Or Instructor weak due to pre-existing arthritis but functional. Left Upper Extremity: Shoulder flexors 4-/5. Shoulder abductors 4-/5. Elbow flexors 4-/5. Elbow extensors 4-/5. Horse Riding Coach Or Instructor weak due to pre-existing arthritis but functional. Right Lower Extremity: Hip flexors 4-/5. Hip abductors 4-/5. Knee flexors 4-/5. Knee extensors 4-/5. Ankle dorsiflexors 4-/5. Ankle plantarflexors 4-/5. Left Lower Extremity: Hip flexors 2-/5. Hip abductors 2-/5. Knee flexors 2-/5. Knee extensors 2-/5. Ankle dorsiflexors 2-/5. Ankle plantarflexors 3-/5. Bed Mobility/Transfers: Minimal verbal cueing provided for use of B hands as needed for support, movement sequence, AD management, and posture to reduce fall risk and minimize pain report Rolling moderate assist Supine to sit minimal assist using leg hospital unit coordinator on the L foot to minimize pain Sit to supine minimal assist using leg hospital unit coordinator on the L foot to minimize pain Sit to stand minimal assist using FWW Stand to sit minimal assist using FWW Gait: Facilitated safe and correct performance of level surface ambulation covering a distance of 30 feet with report of impaired sensation and awareness of the L foot with each step early on, pain at the hip and knee at 8/10 but resolved somewhat after a short standing rest. he then was able to cover another 200 feet using FWW with wheelchair follow of daughter. Minimal verbal cueing provided for AD management, posture, and safe limb movement sequence. L LE movement mildly uncoordinated. Balance: Static Sitting: Estrella Dynamic Sitting: Good Static Standing: Fair Dynamic Standing: Fair Special Tests: Mobility Limitations Standardized Measure [facility]-PAC 6 clicks Basic Mobility Inpatient Short Form: Raw Score: 18 CMS Score: 47% deficit Informed Consent/Education: Patient was instructed in purpose of PT consult and plan of care. Agreeable to proceed with established PT POC to achieve personal goals. Assessment: New onset worsened left L3-L4 radiculopathy limiting ability to perform bed mobility, transfers, and ambulation task performance. 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 Patient lives alone and daughter lives half an hour away. Patient was given leg hospital unit coordinator to use on the L side as patient is aunable to lift and move L LE onto side of bed to sit up. Defer to hospitalist about further assessment/referral regarding worsening of symptoms related to L3-L4 DJD and foraminal stenosis. Patient is being followed by neurologist Dr. Hooks at [facility] and recommended L3-L4 instrumented fusion and [facility]. Patient presents with clinical signs and symptoms consistent with current/admitting diagnoses that have resulted to mobility limitations, gait instability, generalized weakness, and overall ADL decline as demonstrated by the following impairment level findings: 1. Decreased strength to [] [] major muscle groups 2. Impaired sitting/standing balance 3. Impaired activity tolerance 4. Limitation of joint range of motion in [] 5. Shortness of breath 6. Swelling Impairments are contributing to the following functional limitations: 1. Decline in bed mobility skills 2. Decline in transfer skills 3. Difficulty with ambulation without assistive device and physical assistance 4. Increased completion time for mobility ADL performance 5. Increased risk for falls 6. Difficulty with managing steps alone safely Patient is assessed as a 31748 moderate complexity based on the following: History: 78-year-old male with past medical history as indicated above Examination: Demonstrable impairment in strength, balance, and mobility level with underlying impairments and functional limitations as exhibited above as well as deficit score of 47% utilizing the [facility] Mobility Inpatient Short Form Presentation: Evolving Decision Makin moderate complexity Goals: Goals X1 week 1. Supine-Sit independent 2. Sit-Supine independent 3. Sit-Stand independent 4. Stand-Sit independent with FWW 5. Bed-Chair independent with FWW 6. Chair-Bed independent with FWW 7. Independent gait on level surface with use of FWW for at least 150 feet without report of pain nor dyspnea 8. Independent stair negotiation while holding onto 1 rail for at least 4 steps without report of pain nor dyspnea 9. Good static and dynamic standing balance/tolerance Plan of Care/Treatment Plan: 1-2x/day, 7 days/week x 1 week. Plan of care has been reviewed with the GRINDER providing the service under Physical Therapy direction. Initiate Physical Therapy intervention for pain management as needed, strengthening, bed mobility, transfers, gait, stairs, balance training, and use of assistive device. -Gentle L ITB stretching, manual therapy -Core activation and strengthening during mobility performance -Functional mobility progression DISCHARGE RECOMMENDATIONS: [] Home with no services [] [] Home with services [specify] [] Home with outpatient PT [] [] SNF for continued rehabilitation [] [] [facility] [] [] SNF versus LTC based on ability to participate and progress [] [X] Short-term rehab to increase ability to safely perform mobility ADL prior to going home alone to reduce fall risk TREATMENT CODE/TIME: 62492 x 20 minutes for 1 unit, 13483 x 35 minutes for 2 units (14:40-15:35). Thank you for the opportunity to participate in the care of this patient. Erinn Wakefield PT, DPT, CLT [facility] [place], [place]
[2024-04-07] MEDS: Atorvastatin 40 MG TAB 80 MG PO (19:52)
[2024-04-07] MEDS: Tamsulosin 0.4 MG CAPCR PO (19:53)
[2024-04-07] MEDS: Metoprolol 50 MG TAB 100 MG PO (19:53)
--- NOTE | 2024-04-07 21:40 | NUR.NOTE ---
Nursing Note: Romeved roxana wrap from legs for overnight. Pt states he feels they helped.
[2024-04-07] MEDS: Senna TAB 1 TAB PO (22:30)
[2024-04-07] MEDS: Lidocaine 5% Patch 2 PATCH TP (22:30)
[2024-04-08] VITALS (36 sets, daily range): BP systolic 109–130; BP diastolic 85–97; PULSE 84–133; RESP 12–29; TEMP 36.1–36.9; O2SAT 97
--- NOTE | 2024-04-08 06:55 | OT.INIE ---
Occupational Therapy Notes Inpatient Occupational Therapy Evaluation Date: 04/08/24 Referring Doctor: Dr. Lowery OT Orders: Non urgent Precautions: Fall, standard, Full PATIENT PROFILE/ADMITTING DIAGNOSIS: Pt is a 78 year old male with a L3-L4 left-sded foraminal stenosis, S/P hemilaminectomy of L3-L4 in , lumbar spondylosis, and spinal stenosis who presented to the ED on 04/05/2024 for complaints of chest pain, suprapubic/scrotal pain, and low back pain and was admitted for AF, PAD, CHF, asthma, benign prostatic hyperplasia, chroninc LBP, abnomal liver enzymes. Past Medical History: All Active Problems (Updated 04/05/24 @ 23:04 by Aj Lowery) Abnormal liver enzymes (Acute) DVT prophylaxis (Acute) Bladder wall thickening (Acute) Abdominal pain (Acute) New onset a-fib (Acute) CRPS (complex regional pain syndrome) type I of lower limb (Acute) Diabetes mellitus with diabetic polyneuropathy (Acute) Claudication of right lower extremity (Acute) Septic arthritis of right ankle (Acute) PAD (peripheral artery disease) (Acute) Chronic foot pain (Acute) Positive MIKE (antinuclear antibody) (Acute) Rheumatoid factor positive (Acute) Ankle pain, right (Acute) Hypertension (Chronic) Abnormal electrocardiogram (Acute) Right wrist pain (Acute) CHF (congestive heart failure) (Chronic) Hypertriglyceridemia (Acute) Elevated blood pressure reading without diagnosis of hypertension (Acute) Erectile dysfunction (Acute) Asthma (Acute 06/22/13) Gout (Acute) Joint pain (Acute 06/22/13) Status post carpal tunnel release (Acute) Status post laminectomy (Acute 06/11/16) Right leg swelling (Acute) likely venous insuffiTick bite (Acute) no sign of diseaseBack pain (Chronic) deteriorated ?related to fall 6 months agoKnee pain (Acute) Hyperlipidemia with target LDL less than 130 (Acute 06/22/13) Hand joint pain (Acute 06/22/13) Chronic bilateral low back pain without sciatica (Acute 06/11/16) Benign prostatic hyperplasia (Acute 06/22/13) Medical History Asthma Hyperlipidemia Gout Surgical History Open Carpal Tunnel release Neck ortho surgery (09/17/15) LUMBAR SURGERY 12/30/16- [facility] Social History/Home Situation: Pt states that he lives in a private home and was (I) with his ADL/IaDL routines prior. He notes that he is unable to bend over for his LE dressing and bathing. He notes that he has a sock aid, shower seat but does feel limited. Equipment owned/DME: sock aid, shower seat, cane SUBJECTIVE: Pt was sitting in chair when OT arrived. He states that he is hoping all of this is only temporary at this time but is receptive to whatever OT can offer. OBJECTIVE: General Observation: Pleasant, IV in (L) UE, BP cuff, telemetry Mental Status: A&Ox4 Pain: c/o discomfort throughout back and body ROM: RUE AROM WFL L UE AROM WFL STRENGTH: RUE 4-/5 throughout globally with weak mold bunch trimmer from prior issue LUE 4-/5 throughout globally with weak mold bunch trimmer from prior issue FUNCTIONAL MOBILITY/ADLS: Self Care Training 78211: OT educated and trained pt in adaptive equipment including sock aid, dressing stick, manager fund and use of adaptive equipment in seated position to avoid bending of the back/hips. OT provided pt with adaptive equipment and will monitor pts response to todays session. TOILETING NT at todays session. EATING seated in chair with support to back (i) with hand to mouth and no obvious issues with chewing or swallowing at this time. BALANCE: Static sitting Normal Dynamic Sitting Good Static Standing Good Dynamic Standing Fair-Good SPECIAL TESTS: Daily Activity Limitations Standardized Measure [facility] AM -PAC ?6 clicks? Daily Activity Inpatient Short Form: Raw score: 20 INFORMED CONSENT/EDUCATION: Pt instructed in purpose of OT Consult and plan of care. ASSESSMENT: Patient is a 78-year-old male referred to occupational therapy services with diagnosis of L3-L4 left-sded foraminal stenosis, S/P hemilaminectomy of L3-L4 in , lumbar spondylosis, and spinal stenosis who presented to the ED on 04/05/2024 for complaints of chest pain, suprapubic/scrotal pain, and low back pain accompanied by radiating pain from side of L knee to the left thigh. Patient is admitted for management of new onset AF, PAD, CHF, asthma, benign prostatic hyperplasia, chroninc LBP, abnomal liver enzymes. Patient presents with clinical signs and symptoms consistent with dx, as demonstrated by the following impairment level findings/functional limitations: Impairments in ADL/IADL routines, decreased (B) UE function including grasp and release, gross and fine motor control, impairments in bending from the waist and performing LE dressing or bathing. Patient is assessed as a Moderate 94889 complexity based on the following: History: see above Examination: see functional limitations as noted above Presentation: evolving Decision Making: moderate decision making GOALS Goals x1 week 1. Transfers (I) 2. Dressing mod (I) in seated position 3. Bathing Mod (I) in seated position 4. Toileting (I) 5. Eating (I) PLAN OF CARE/TREATMENT PLAN: 1x/day, 5 days/ week x 1week Initiate Occupational Therapy Services for bathing, dressing, grooming, toileting, eating, transfer training. DISCHARGE RECOMMENDATIONS OT recommends SNF when medically cleared per MD. TREATMENT TIME/MINUTES/CODES 34253, 61189, 20 minutes [facility] [place], [place]
[2024-04-08] MEDS: Aspirin 81 MG CHEW CH (08:04)
[2024-04-08] MEDS: Losartan 25 MG TAB PO (08:05)
[2024-04-08] MEDS: Metoprolol 50 MG TAB 100 MG PO ×2 (08:05→20:19)
[2024-04-08] MEDS: Allopurinol 300 MG TAB PO (08:05)
[2024-04-08] MEDS: Bumetanide 1 MG TAB PO (08:05)
[2024-04-08] MEDS: Apixaban 5 MG TAB PO ×2 (08:05→20:20)
[2024-04-08] MEDS: Pantoprazole 40 MG TABCR PO (08:05)
--- NOTE | 2024-04-08 09:16 | PDOC.CMPRO ---
Date of service: 04/08/24 Time of Service: 09:16 Care Management Progress Note Progress Note Text Progress Note Text: S/O:Rocco was sitting up in bed visiting with his daughter when CM met with him. He seemed to be in good spirits and engaged readily with CM. Rocco has agreed to go to short term rehab prior to returning home. He has become weaker and less steady and wants to improve his balance and ambulation as he lives alone. At his (and his daughter's ) request, referrals were sent to [facility] and [facility]. Their clear preference is [facility] bur will accept [facility] if there is no availability at [facility]. A: Rocco is a 78 year old man admitted on 04/05/24 with atrial flutter Discharge Potential Discharge Needs: PCP F/U Appt and Other (may need SNF for short term rehab) Anticipated Barriers to Discharge: Bed availability Patient/Family Education Needs: Review discharge instructions, discuss Ask Me Three Transportation: Private vehicle Plan: Anticipate Rocco will be transferred to a fci facility for short term rehab, prior to returning home. Referrals have been sent to [email or web address] and [facility].. He will follow up with facility providers and plan of care and transport with family. CM will continue to support discharge planning needs. SDOH(Care Management) Screening Will the Patient Participate in the Screening?: Yes Do you worry about having a steady place to live?: no Problems where you live: no known problems In the past 12 months, have you had to go without electric, gas, oil or water in your home?: no Have you or anyone in your house had to go without enough food to eat?: no Has lack of transportation kept you from medical appointments or from doing things needed for daily living?: no Has anyone in your support network made you feel unsafe for any reason?: no
[2024-04-08] MEDS: Acetaminophen 325 MG TAB 650 MG PO ×3 (10:11→22:23)
[2024-04-08] MEDS: Diclofenac 1% Gel 100 GM TUBE TP ×2 (10:12→14:06)
[2024-04-08] MEDS: Patch Removal 2 EACH TP (10:21)
--- NOTE | 2024-04-08 12:45 | W.PM.PROGNOT ---
Date of Service Date of service: 04/08/24 Time of Service: 12:45 Assessment and Plan Assessment and plan (1) New onset a-fib: Status: Acute Assessment and plan: -Current EKG c/w flutter, was in Atrial fibrillation last week. -He elected outpatient treatment initially, but stopped the apixaban and metoprolol due to swelling in bladder area. -Had nl TSH, negative troponins -had been on heparin drip on admission but has since been transitioned back to eliquis -asymptomatic on lopressor 25mg TID, but was increased to 50mg TID on 04/06 given that he experienced significantly elevated HR with ambulation up to about 150bpm -dose increase again, now to 100mg lopressor PO BID as of AM 04/07 due to resting HR 90-100 but 120-130s with ambulation -HR has since been stable (2) PAD (peripheral artery disease): Status: Acute Assessment and plan: -Reviewing the CT with modoy in comparison with the report from the same study on 09/03/23, it is not clear that there is any acute change. -His discoloration, shiny skin, and cold of the RLE is not new and has been evaluated with multiple specialties including vascular surgery. 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 -he was starrted on 81mg aspirin and a high intensity statin by admitting provider, will continue -will have outpatient follow up with vascular surgery (3) CHF (congestive heart failure): Status: Chronic Assessment and plan: -Based on the pleaural effusions, increasing BNP, and increased LE edema that is now bilateral, the atrial arrythmia may be causing some mild CHF. -Echocardiogram ordered and completed, results pending -EKG and troponins are not consistent with ACS (4) Asthma: Status: Acute Assessment and plan: -denies increase symptoms since starting metoprolol, so I think we can safely continue this. (5) Benign prostatic hyperplasia: Status: Acute Assessment and plan: -presenting complaint of suprapubic fullness was related to his bladder. -Per RN he had around 600ml urine before urinating and >300 after. -started on tamsulosin on admission, will continue (6) Chronic bilateral low back pain without sciatica: Status: Acute Assessment and plan: -weakness lifting the left leg is related to his chronic back pain related to lumbar spinal stenosis as it started after bending over to put on stockings. -has chronic pain but prefers to avoid pain meds other than APAP. -I recommended PT as he lives alone with a large dog, but he is hesitant at this point. (7) Abnormal liver enzymes: Status: Acute Assessment and plan: AST elevation is chronic and along with elevated MCV may indicate alcohol effects. He has stopped drinking. Alk Phos and bili are new. He had mid abdominal pain last week and CT at that time showed some signs of cholecystitis (8) DVT prophylaxis: Status: Acute Assessment and plan: on systemic anticoagulation Subjective Subjective Interval history since last seen: Patient states that he is doing well today and is looking forward to going to [facility] once a bed is available. Exam Narrative Exam Narrative: Well-appearing older gentleman laying in bed in no acute distress, ANO x 4, heart irregularly irregular with resting rate about 100 bpm, lungs clear to auscultation bilaterally, abdomen soft, nontender, nondistended, +1 pitting edema bilateral lower extremities to the knees, signs of chronic PAD worse on the right than the left with right showing purpleish discoloration in the foot improving to about mid thigh Objective Last Vital Signs Temp 98.4 F 04/08/24 11:51 Pulse 84 04/08/24 11:51 Resp 16 04/08/24 11:51 BP 119/85 04/08/24 11:51 Pulse Ox 97 04/08/24 08:11 PAWSS Have you Been Recently Intoxicated or Drunk Within the Last 30 days?: No Have you Ever Experienced Previous Episodes of Alcohol Withdrawal?: No Have you ever Experienced Withdrawal Seizures?: No Have you ever Experienced Delirium Tremens(DT)s?: No Have you ever undergone Alcohol Rehabilitation Treatment (i.e, inpt ot outpatient treatment programs)?: No Have you ever Experienced Blackouts?: No Have you ever Combined Alcohol with other Downers within the last 90 days?: No Have you ever Combined Alcohol with any other Substance of Abuse during the last 90 days?: No Positive Blood Alcohol level on Presentation? [PCS.BAL]: No Evidence of Increased Autonomic Activity (i.e. HR>120, tremor, sweating, agitation, nausea)?: No Result: 0 Time Spent with Patient Time Spent with Patient: >50 minutes Time was spent: preparing to see the patient(eg.review tests), obtaining and/or reviewing separately otained hiistory, ordering medications,tests, procedures, referring, communicating with other health healthcare financial analyst, indepentently interpreting results, counseling the patient and care coordination
[2024-04-08] MEDS: Methocarbamol 500 MG TAB PO (14:17)
--- NOTE | 2024-04-08 14:38 | CHAPLAIN ---
Rocco was resting in bed when I visited. He was very pleasant and easily engaged in a conversation. His daughter and grandson have been visiting him here. I explained my role and offered support. According to Care Management notes, Rocco's a year ago and he lives alone. His daughter has concerns about him falling at home.
--- NOTE | 2024-04-08 15:08 | PTTR_ITS ---
PT Notes Visit Reasons: A,Flutter RVR,CHF,Acuet onchronic PADpleural eff Physical Therapy Inpatient Treatment Note Date: 04/08/2024 Precautions: Fall. Standard. Activity as tolerated. Subjective: Per daughter, patient has really been trying to be indepednent and did not want to bother the nurses last night that he attempted to transfer to and from bedside commode several times and in the process strained his L medila quads and adductors. He complained of pain in the medial thigh and groin and has increased anxiety about weight bearing. Daughter and patient considering short term placement at [facility] if there is an availability. Objective: General Observation: Resting in bed. Telemetry monitoring in place. Mental Status: Alert and oriented as to person, place, time, and purpose. Able to pay attention, focus, and respond appropriately. Pain: 7-8/10 in the low back and the L thigh and leg aggravated with movement Vital Signs: Closely monitored via tele Bed Mobility/Transfers: Minimal verbal cueing provided for use of B hands as needed for support, movement sequence, AD management, and posture to reduce fall risk and minimize pain report Rolling moderate assist Supine to sit minimal assist to L LE Sit to supine minimal assist to L LE Sit to stand minimal assist using FWW Stand to sit minimal assist using FWW Gait: Facilitated safe and correct performance of level surface ambulation covering a distance of 25 feet and then another 25 feet goign back to edeg of bed with rep ort of significant pain now mostly on the medial side of thigh and groin area. Minimal verbal cueing provided for AD management, posture, and safe limb movement sequence. L LE movement mildly uncoordinated. In the afternoons session, patient could only manage 5 steps and became anxious to proceed and opteed to go back to bed due to increased pain level. THERA EX: Attempted seated exercises to slowly work on increasing AROM for hip flexion, knee flexion, ankle PF/DF, and hip abduction/adduction while at EOB, 10 reps each. Provided cueing for safe and decreased pain report. Balance: Static Sitting: Estrella Dynamic Sitting: Good Static Standing: Fair Dynamic Standing: Fair Assessment: Strained VAstus medialis and adductors on the L trying to get in and out of bed on his own last night. More pain in the medial thigh now than on the L ITB. Patient's abilities declined today compared to yesterday with longest walk only to 25 feet from bed to outside his room and back. Got so anxious about doing more due to pain going up to 8-9/10 on the L medial thigh. Manual therapy provided for patient with some relief but the afternoon session his distance was only limited to 5 steps even with walker use and inatke of Robaxin some 20 minutes before PT session. Exacerbation of left L3-L4 radiculopathy limiting ability to perform bed mobility, transfers, and ambulation task performance. 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 Patient lives alone and daughter lives half an hour away. Patient was given leg locomotive mechanic to use on the L side as patient is unable to lift and move L LE onto side of bed to sit up. Defer to hospitalist about further assessment/referral regarding worsening of symptoms related to L3- L4 DJD and foraminal stenosis. Patient is being followed by neurologist Dr. Hooks at [facility] and recommended L3-L4 instrumented fusion and complete facetectomy during neurology consult back in 2019. Plan of Care/Treatment Plan: 1-2x/day, 7 days/week x 1 week. Plan of care has been reviewed with the [employer] providing the service under Physical Therapy direction. Initiate Physical Therapy intervention for pain management as needed, strengthening, bed mobility, transfers, gait, stairs, balance training, and use of assistive device. -Manual therapy to medial quads and adductors to facilitate muscle relaxation -Core activation and strengthening during mobility performance -Functional mobility progression DISCHARGE RECOMMENDATIONS: [] Home with no services [] [] Home with services [specify] [] Home with outpatient PT [] [] SNF for continued rehabilitation [] [] [facility] [] [] SNF versus LTC based on ability to participate and progress [] [X] Short-term rehab to increase ability to safely perform mobility ADL prior to going home alone to reduce fall risk TREATMENT CODE/TIME: Session 1--33670 x 31 minutes for 2 units (10:58-11:21). Session 2--[id number] x 12 minutes for 1 unit, 20715 x 12 minutes for unit (14:40-15:35).
[2024-04-08] MEDS: Senna TAB 1 TAB PO (20:19)
[2024-04-08] MEDS: Tamsulosin 0.4 MG CAPCR PO (20:19)
[2024-04-08] MEDS: Atorvastatin 40 MG TAB 80 MG PO (20:19)
[2024-04-08] MEDS: Lidocaine 5% Patch 2 PATCH TP (20:20)
[2024-04-08] MEDS: Docusate Sodium 100 MG CAP PO (21:12)
[2024-04-09] VITALS (35 sets, daily range): BP systolic 84–128; BP diastolic 60–106; PULSE 73–130; RESP 2–21; TEMP 35.9–36.6; O2SAT 96–100
[2024-04-09] MEDS: Normal Saline Flush 10 ML SYR IVP ×2 (02:45→20:11)
[2024-04-09] MEDS: Acetaminophen 325 MG TAB 650 MG PO ×4 (04:17→21:22)
[2024-04-09] MEDS: Albuterol/Ipratropium 3 ML UPD VIAL IH (04:37)
[2024-04-09] MEDS: Losartan 25 MG TAB PO (09:06)
[2024-04-09] MEDS: Metoprolol 50 MG TAB 100 MG PO ×2 (09:06→20:12)
[2024-04-09] MEDS: Aspirin 81 MG CHEW CH (09:06)
[2024-04-09] MEDS: Bumetanide 1 MG TAB PO (09:07)
[2024-04-09] MEDS: Allopurinol 300 MG TAB PO (09:07)
[2024-04-09] MEDS: Pantoprazole 40 MG TABCR PO (09:07)
[2024-04-09] MEDS: Apixaban 5 MG TAB PO ×2 (09:07→20:13)
[2024-04-09] MEDS: Diclofenac 1% Gel 100 GM TUBE TP ×4 (09:24→20:11)
[2024-04-09] MEDS: Patch Removal 2 EACH TP (09:24)
--- NOTE | 2024-04-09 10:53 | PT.INTREAT ---
PT Notes Visit Reasons: A,Flutter RVR,CHF,Acuet onchronic PADpleural eff Inpatient Physical Therapy Treatment Note [facility] Date: 04/09/24 SUBJECTIVE: Rocco reports that he wants to go home. I am willing to do whatever just to get home. Continues to c/o pain in groin as well as outer thigh. States that he tried to get out of bed earlier this am and it didn't go well. Reports ice on thigh helps with pain. OBJECTIVE: []? PAIN: medial and lateral thigh on left VITALS: ? monitored by [facility] Therapeutic Activities ([id number]): Direct one-on-one instruction in dynamic activities to improve functional performance. ? BED MOBILITY/TRANSFERS? Supine-sit:min A with L LE ? Sit-stand: CGA? Stand-sit: CGA ? Bed-Chair:CGA? Provided skilled cues and instruction on performance and technique throughout. [x] modified weight-bearing status [x] turning and movement with proper form GAIT? Assistive Device:FWW? Weight bearing:AT Assist:CGA ? Distance:?approx 15'? Deviation: decreased stride length? Manual therapy ([id number]) STM t/o medial and lateral thigh focused on adductors and medial hamstring as well as ITB. I provided distractions of Gabe HARRINGTON. ASSESSMENT:?tolerated session well despite his pain. Increased pain with wt bearing but tolerable post pain meds. Increased pain in inner thigh/adductor with seated fwd flex, however this position alleviates his lateral thigh/ITB band pain. Cues given t/o for proper core and glut engagement to better manage pain during functional mobility. PLAN: will continue to work on his strength and functional mobility to tolerance. TREATMENT CODE/TIME: []
--- NOTE | 2024-04-09 12:51 | W.PC.ACHO ---
Registration Status: ADM IN Primary Language: Preferred Language: French ED Information & Data Chief Complaint Chest Pain 04/05/24 11:24 Triage Note patient tachycardic when ems 04/05/24 11:12 arrived. having chest pain with sob which is improving. also c/o scrotal discomfort . Medical / Surgical History (Last Reviewed 04/05/24 @ 22:18 by Aj Lowery) Asthma Hyperlipidemia Gout (Last Reviewed 04/05/24 @ 22:18 by Aj Lowery) Open Carpal Tunnel release Neck ortho surgery (09/17/15) LUMBAR SURGERY Most Recent Vital Signs Temperature 36.3 C L 04/09/24 04:17 Temperature Source Temporal Artery Scan 04/08/24 21:31 Pulse 98 H 04/09/24 10:39 Pulse Rhythm Irregular 04/09/24 00:00 Pulse 86 04/09/24 10:39 Respiratory Rate 12 04/09/24 10:39 Respiratory Effort Normal 04/09/24 07:40 Respiratory Depth Normal 04/09/24 07:40 Respiratory Pattern Normal 04/09/24 07:40 Blood Pressure 104/74 04/09/24 10:39 Blood Pressure Mean 85 04/09/24 10:39 Blood Pressure Position Supine 04/05/24 11:12 Pulse Oximetry 100 04/09/24 04:45 Oxygen Delivery Method Room Air 04/09/24 04:37 Oxygen Flow Rate 0 04/09/24 04:37 Pain Level 0 04/09/24 05:17 Allergies shellfish derived Allergy (Severe, Verified 04/05/24 11:19) Anaphylaxsis Opioids - Morphine Analogues Adverse Reaction (Severe, Verified 04/05/24 11:19) nausea and vomiting buprenorphine Adverse Reaction (Intermediate, Verified 04/05/24 11:19) Nausea n/v after first dose spironolactone Adverse Reaction (Intermediate, Verified 04/05/24 11:19) Stomach pain HORSE SERUM PROTEINS Allergy (Intermediate, Uncoded 04/05/24 11:19) Nasal congestion Precautions Isolation Standard precaution 04/05/24 11:24 Active Medications Generic Name Dose Route Start Last Admin Trade Name Freq PRN Reason Stop Dose Admin Acetaminophen 650 mg 04/06/24 06:31 04/09/24 09:45 Acetaminophen 325 Mg Tab PO 650 mg Q6H PRN PRN Administration Albuterol/Ipratropium 3 ml 04/05/24 19:54 04/09/24 04:37 Albuterol/Ipratropium 3 Ml Upd Vial IH 3 ml QID PRN PRN Administration shortness of breath Allopurinol 300 mg 04/06/24 08:30 04/09/24 09:07 Allopurinol 300 Mg Tab PO 300 mg DAILY MEHREEN Administration Apixaban 5 mg 04/06/24 08:30 04/09/24 09:07 Apixaban 5 Mg Tab PO 5 mg BID MEHREEN Administration Aspirin 81 mg 04/06/24 08:30 04/09/24 09:06 Aspirin 81 Mg Chew CH 81 mg DAILY MEHREEN Administration Atorvastatin Calcium 80 mg 04/05/24 20:00 04/08/24 20:19 Atorvastatin 40 Mg Tab PO 80 mg QPM MEHREEN Administration Bumetanide 1 mg 04/06/24 08:30 04/09/24 09:07 Bumetanide 1 Mg Tab PO 1 mg DAILY MEHREEN Administration Diclofenac Sodium 0 gm 04/07/24 12:00 04/09/24 09:24 Diclofenac 1% Gel 100 Gm Tube TP 1 applic QID MEHREEN Administration Docusate Sodium 100 mg 04/08/24 21:01 04/08/24 21:12 Docusate Sodium 100 Mg Cap PO 100 mg BID PRN PRN Administration Constipation Lidocaine 2 patch 04/07/24 22:00 04/08/24 20:20 Lidocaine 5% Patch TP 2 patch HS MEHREEN Administration Losartan Potassium 25 mg 04/06/24 08:30 04/09/24 09:06 Losartan 25 Mg Tab PO 25 mg DAILY MEHREEN Administration Methocarbamol 500 mg 04/08/24 13:41 04/08/24 14:17 Methocarbamol 500 Mg Tab PO 500 mg Q4H PRN PRN Administration Metoprolol Tartrate 100 mg 04/07/24 20:00 04/09/24 09:06 Metoprolol 50 Mg Tab PO 100 mg BID MEHREEN Administration Miscellaneous 2 each 04/08/24 08:00 04/09/24 09:24 Patch Removal TP 2 each 0800 MEHREEN Administration Pantoprazole Sodium 40 mg 04/06/24 07:30 04/09/24 09:07 Pantoprazole 40 Mg Tabcr PO 40 mg DAILY@0730 MEHREEN Administration Sennosides 1 tab 04/07/24 22:00 04/08/24 20:19 Senna Tab PO 1 tab HS MEHREEN Administration Sodium Chloride 0 ml 04/06/24 07:30 04/09/24 02:45 Normal Saline Flush 10 Ml Syr IVP 10 ml PRN PRN Administration Tamsulosin HCl 0.4 mg 04/06/24 20:00 04/08/24 20:19 Tamsulosin 0.4 Mg Capcr PO 0.4 mg HS MEHEREN Administration IV IV Catheter Type [Right Saline Lock Antecubital] IV Catheter Type [Left Saline Lock Antecubital] IV Catheter Gauge [Right 20 Antecubital] IV Catheter Gauge [Left 18 Antecubital] Intake and Output - 24 Hour Total 04/05/24 11:06 thru 04/09/24 12:27 Intake Total 3550 Output Total 9200 Balance -5650 Weight 89.7 kg Intake: IV 310 Oral 3240 Output: Urine 9200 Other: Urine Color Yellow Urine Appearance Clear Urine Odor Normal Comment Mixed with stool Stool Size Smear Stool Characteristics Soft Formed Voiding Methods Bedside Commode Falls Risk Assessment History of Falls No History 04/05/24 20:09 Contributing Factors No Factors 04/05/24 11:24 Ambulatory Aids Independent 04/05/24 11:24 Tubes/Lines None 04/05/24 11:24 Fall Total Score 0 04/05/24 20:09 Level of Risk Standard/Low Risk 04/05/24 20:09 Problems (Last Reviewed 04/05/24 @ 22:18 by Aj Lowery) Abnormal liver enzymes (Acute) DVT prophylaxis (Acute) New onset a-fib (Acute) PAD (peripheral artery disease) (Acute) CHF (congestive heart failure) (Chronic) Asthma (Acute 06/22/13) Chronic bilateral low back pain without sciatica (Acute 06/11/16) Benign prostatic hyperplasia (Acute 06/22/13) Notes 04/07/24 21:40 Nursing Notes by Jono Hernandez Nursing Note: Romeved roxana wrap from legs for overnight. Pt states he feels they helped. Initialized on 04/07/24 21:40 - END OF NOTE v v v v v v v v v Sending and/or Receiving Nurses: Please use comment section below to note any information pertinent to the patient hand-off not included above. Information / Comments: Voltaren gel needs to be applied after transition, Patient is using standby assist to the commode. Lidocaine patched applied to L thigh. Pedal pulses only felt with doppler. Report received from: Giselle Singh RN
--- NOTE | 2024-04-09 13:52 | PGE_ITS ---
Date of Service Date of service: 04/09/24 Time of Service: 13:52 Assessment and Plan Assessment and plan (1) New onset a-fib: Status: Acute Assessment and plan: -Current EKG c/w flutter, was in Atrial fibrillation last week. -He elected outpatient treatment initially, but stopped the apixaban and metoprolol due to swelling in bladder area. -Had nl TSH, negative troponins -had been on heparin drip on admission but has since been transitioned back to eliquis -asymptomatic on lopressor 25mg TID, but was increased to 50mg TID on 04/06 given that he experienced significantly elevated HR with ambulation up to about 150bpm -dose increase again, now to 100mg lopressor PO BID as of AM 04/07 due to resting HR 90-100 but 120-130s with ambulation -HR has since been stable (2) PAD (peripheral artery disease): Status: Acute Assessment and plan: -Reviewing the CT with moody in comparison with the report from the same study on 09/03/23, it is not clear that there is any acute change. -His discoloration, shiny skin, and cold of the RLE is not new and has been felice luated with multiple specialties including vascular surgery. 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 -he was starrted on 81mg aspirin and a high intensity statin by admitting provider, will continue -will have outpatient follow up with vascular surgery (3) CHF (congestive heart failure): Status: Chronic Assessment and plan: -Based on the pleaural effusions, increasing BNP, and increased LE edema that is now bilateral, the atrial arrythmia may be causing some mild CHF. -Echocardiogram ordered and completed, results pending -EKG and troponins are not consistent with ACS (4) Asthma: Status: Acute Assessment and plan: -denies increase symptoms since starting metoprolol, so I think we can safely continue this. (5) Benign prostatic hyperplasia: Status: Acute Assessment and plan: -presenting complaint of suprapubic fullness was related to his bladder. -Per RN he had around 600ml urine before urinating and >300 after. -started on tamsulosin on admission, will continue (6) Chronic bilateral low back pain without sciatica: Status: Acute Assessment and plan: -weakness lifting the left leg is related to his chronic back pain related to lumbar spinal stenosis as it started after bending over to put on stockings. -has chronic pain but prefers to avoid pain meds other than APAP. -I recommended PT as he lives alone with a large dog, but he is hesitant at this point. (7) Abnormal liver enzymes: Status: Acute Assessment and plan: AST elevation is chronic and along with elevated MCV may indicate alcohol effects. He has stopped drinking. Alk Phos and bili are new. He had mid abdominal pain last week and CT at that time showed some signs of cholecystitis (8) DVT prophylaxis: Status: Acute Assessment and plan: on systemic anticoagulation Subjective Subjective Interval history since last seen: Patient states that he is doing well today and has no complaints or concerns at this time. Exam Narrative Exam Narrative: Well-appearing older gentleman laying in bed in no acute distress, ANO x 4, heart irregularly irregular with resting rate about 100 bpm, lungs clear to auscultation bilaterally, abdomen soft, nontender, nondistended, +1 pitting edema bilateral lower extremities to the knees, signs of chronic PAD worse on the right than the left with right showing purpleish discoloration in the foot improving to about mid thigh Objective Last Vital Signs Temp 97.0 F L 04/09/24 13:17 Pulse 90 04/09/24 13:17 Resp 16 04/09/24 13:17 BP 84/6 L 04/09/24 13:17 Pulse Ox 97 04/09/24 13:17 PAWSS Have you Been Recently Intoxicated or Drunk Within the Last 30 days?: No Have you Ever Experienced Previous Episodes of Alcohol Withdrawal?: No Have you ever Experienced Withdrawal Seizures?: No Have you ever Experienced Delirium Tremens(DT)s?: No Have you ever undergone Alcohol Rehabilitation Treatment (i.e, inpt ot outpatient treatment programs)?: No Have you ever Experienced Blackouts?: No Have you ever Combined Alcohol with other Downers within the last 90 days?: No Have you ever Combined Alcohol with any other Substance of Abuse during the last 90 days?: No Positive Blood Alcohol level on Presentation? [PCS.BAL]: No Evidence of Increased Autonomic Activity (i.e. HR>120, tremor, sweating, agitation, nausea)?: No Result: 0 Time Spent with Patient Time Spent with Patient: >50 minutes Time was spent: preparing to see the patient(eg.review tests), obtaining and/or reviewing separately otained hiistory, ordering medications,tests, procedures, referring, communicating with other health pharmacy care coordinator, indepentently interpreting results, counseling the patient and care coordination
[2024-04-09] MEDS: Docusate Sodium 100 MG CAP PO (17:58)
[2024-04-09] MEDS: Lidocaine 5% Patch 2 PATCH TP (20:10)
[2024-04-09] MEDS: Atorvastatin 40 MG TAB 80 MG PO (20:12)
[2024-04-09] MEDS: Tamsulosin 0.4 MG CAPCR PO (20:12)
[2024-04-09] MEDS: Senna TAB 1 TAB PO (20:12)
[2024-04-10 03:45] VITALS: BP 118/92; PULSE 86; RESP 18; TEMP 36; O2SAT 98
[2024-04-10] MEDS: Acetaminophen 325 MG TAB 650 MG PO ×3 (06:10→21:34)
[2024-04-10 07:52] VITALS: BP 119/79; PULSE 82; RESP 16; TEMP 36.1; O2SAT 97
[2024-04-10] MEDS: Metoprolol 50 MG TAB 100 MG PO (08:22)
[2024-04-10] MEDS: Apixaban 5 MG TAB PO ×2 (08:23→19:52)
[2024-04-10] MEDS: Pantoprazole 40 MG TABCR PO (08:23)
[2024-04-10] MEDS: Losartan 25 MG TAB PO (08:23)
[2024-04-10] MEDS: Aspirin 81 MG CHEW CH (08:23)
[2024-04-10] MEDS: Bumetanide 1 MG TAB PO (08:24)
[2024-04-10] MEDS: Allopurinol 300 MG TAB PO (08:24)
[2024-04-10] MEDS: Patch Removal 2 EACH TP (08:27)
--- NOTE | 2024-04-10 10:18 | PT.INTREAT ---
PT Notes Visit Reasons: A,Flutter RVR,CHF,Acuet onchronic PADpleural eff Inpatient Physical Therapy Treatment Note [facility] Date: 04/09/24 SUBJECTIVE: Rocco reports that he is feeling better. He was able to walk from ICU to his room onto med/surge. He states sitting helps the most. Lying down seems to increase pain. Reports inner thigh is feeling better, c/o lateral thigh pain which is worse with wt bearing. Reports that he sleeps in recliner at home. OBJECTIVE: []? PAIN: lateral thigh on left VITALS: ? [place] [facility] [place] [place] Therapeutic Activities ([id number]): Direct one-on-one instruction in dynamic activities to improve functional performance. ? BED MOBILITY/TRANSFERS? Stand-sit:S ? sit-stand:S ? Provided skilled cues and instruction on performance and technique throughout. GAIT? Assistive Device:FWW? Weight bearing:AT Assist:SBA ? Distance:?25'x2 and another 25'x3 approx 30 min later. ? Deviation: decreased stride length? ASSESSMENT:?improved tolerance to walking and functional mobility. No LOB or SOB. Slow steady gait, pain in lateral thigh and occasionally into knee which dissipates once he is seated. PLAN: will continue to work on his strength and functional mobility to tolerance. TREATMENT CODE/TIME: 30 min total. [id number]
--- NOTE | 2024-04-10 15:15 | RT.EKG_ITS ---
APPROVED REPORT Exam: Resting ECG Reason for Exam: change in rhythm Patient Location: I HR:71 bpm ECG Measurements Heart Rate 71 AXIS PA 181 P 65 QRSd 96 QRS -88 QT 595 T [id number] QTc 647 Conclusion Sinus rhythm...normal P axis, V-rate 50- 99 Inferior infarct, old...Q >35mS, II III aVF Anterolateral infarct, age indeterminate...Q >35mS, flat/neg T, V3-V6,I,aVL
[2024-04-10] MEDS: Normal Saline Flush 10 ML SYR IVP ×2 (15:18→19:57)
--- NOTE | 2024-04-10 15:35 | PGE_ITS ---
Date of Service Date of service: 04/10/24 Time of Service: 15:41 Assessment and Plan Assessment and plan (1) New onset a-fib: Status: Acute Assessment and plan: -Admission EKG c/w flutter, was in Atrial fibrillation the week prior, new then. -He elected outpatient treatment initially, but stopped the apixaban and metoprolol due to swelling in bladder area. -Had nl TSH, negative troponins -Placed on heparin drip on admission but has since been transitioned back to apixaban, tolerating this now -metoprolol increased to 100mg BID tartrate 04/09 with improvement in heart rate control. -Converted back to sinus 04/10 with rate 71, with long QTc will cut metoprolol back to 75mg BID. (2) PAD (peripheral artery disease): Status: Acute Assessment and plan: -Reviewing the CT with moody in comparison with the report from the same study on 09/03/23, it is not clear that there is any acute change. -His discoloration, shiny skin, and cold of the RLE is not new and has been evaluated with multiple specialties including vascular surgery. 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 -he was starrted on 81mg aspirin and a high intensity statin on admission, LDL was low the next day at 47 so will cut atorvastatin to 40mg. -will have outpatient follow up with vascular surgery (3) CHF (congestive heart failure): Status: Chronic Assessment and plan: -Based on the pleaural effusions, increased BNP, and increased LE edema, the atrial arrythmia may be causing some mild CHF. -Echocardiogram ordered and completed, shows LVEF mildly reduced at 45%, signs of prevoius ischemia (had this previously, but now lateral Ts more flat). He is on aspirin and high intensity statin as above. Should have cardiology follow up. -EKG and troponins on admission were not consistent with ACS -resumed bumetanide, he is now down 4.5kg from admission. (4) Asthma: Status: Acute Assessment and plan: -Inactive. Denies increase symptoms since starting metoprolol, so I think we can safely continue this. (5) Benign prostatic hyperplasia: Status: Acute Assessment and plan: -presenting complaint was suprapubic fullness was related to his bladder. -Per RN he had around 600ml urine before urinating and >300 after. -started on tamsulosin on admission, no longer getting elevated post-void residuals so will continue. (6) Chronic bilateral low back pain without sciatica: Status: Acute Assessment and plan: -weakness lifting the left leg is related to his chronic back pain related to lumbar spinal stenosis as it started after bending over to put on stockings. -has chronic pain but prefers to avoid pain meds other than APAP. -Now working with PT, short term rehab recommended. (7) Abnormal liver enzymes: Status: Acute Assessment and plan: AST elevation is chronic and along with elevated MCV may indicate alcohol effects. He has stopped drinking. Alk Phos and bili are new improved since admission. He had mid abdominal pain last week and CT at that time showed some signs of cholecystitis, but no symptoms currently so given improving labs will not work up further, but recheck before discharge. (8) DVT prophylaxis: Status: Acute Assessment and plan: on systemic anticoagulation (9) Prolonged QT interval: Status: Acute Assessment and plan: Noted after conversion. Adjusting metoprolol. Has been on loop diuretic so repeat labs with K+ and Mg+ along with renal and liver function now. (10) Hip pain, left: Status: Acute Assessment and plan: Mr. Varela has chronic low back and hip pain, causing significant disability. He is currently indicating the worst pain is in lateral hip, pointing over the greater trochanter. This is limiting his PT. We discussed steroid injection of bursa to improve mobility. Subjective Subjective Patient reports: no new complaints and tolerating a regular diet; denies diarrhea, shortness of breath or fever Interval history since last seen: Per telemetry appeared to convert to sinus. He is still having a lot of pain in left hip, also in back. Can't lay down flat in bed due to back pain. He is not having any chest pain or palpitations, breathing is good. Still voiding okay. Exam Narrative Exam Narrative: Well-appearing older gentleman sitting in chair in no acute distress, ANO x 4, heart regular with no murmur, lungs clear to auscultation bilaterally, abdomen soft, nontender, nondistended, +1 pitting edema bilateral lower extremities up to the hip. right showing purpleish discoloration in the foot improving to about mid thigh. Tender left lateral hip over greater trochanter, pain worse with internal or external rotation at hip with knee flexed. No overlying redness or heat. Objective Last Vital Signs Temp 36.1 C L 04/10/24 07:52 Pulse 82 04/10/24 07:52 Resp 16 04/10/24 07:52 BP 119/79 04/10/24 07:52 Pulse Ox 97 04/10/24 07:52 Objective Narrative Objective Narrative: EKG: Sinus rhythm 71. Left axis. QTc 647. q waves in 2,3,aVF, also V3-V6 with flat t-waves PAWSS Have you Been Recently Intoxicated or Drunk Within the Last 30 days?: No Have you Ever Experienced Previous Episodes of Alcohol Withdrawal?: No Have you ever Experienced Withdrawal Seizures?: No Have you ever Experienced Delirium Tremens(DT)s?: No Have you ever undergone Alcohol Rehabilitation Treatment (i.e, inpt ot outpatient treatment programs)?: No Have you ever Experienced Blackouts?: No Have you ever Combined Alcohol with other Downers within the last 90 days?: No Have you ever Combined Alcohol with any other Substance of Abuse during the last 90 days?: No Positive Blood Alcohol level on Presentation? [PCS.BAL]: No Evidence of Increased Autonomic Activity (i.e. HR>120, tremor, sweating, agitation, nausea)?: No Result: 0 Time Spent with Patient Time Spent with Patient: >50 minutes Time was spent: preparing to see the patient(eg.review tests), obtaining and/or reviewing separately otained hiistory, ordering medications,tests, procedures, referring, communicating with other health urgent care nurse practitioner, indepentently interpreting results, counseling the patient and care coordination
[2024-04-10] MEDS: Triamcinolone 40 MG/ML VIAL IM (18:07)
[2024-04-10] MEDS: Lidocaine 1% Pres-Free 5 ML VIAL SC (18:07)
[2024-04-10 19:20] VITALS: BP 105/78; PULSE 76; RESP 18; TEMP 36.5; O2SAT 97
[2024-04-10 19:27] LABS: ALT 45 U/L (16-63); AST 45 U/L (15-37); Albumin 3.4 g/dL (3.4-5.0); Alkaline Phosphatase 207 U/L (46-116); Anion Gap 10.3 mmol/L (3-11); BUN 28 mg/dL (7-18); Bilirubin, Total 0.6 mg/dL (0.2-1.0); CO2 25.7 mmol/L (21.0-32.0); CREATININE 1.2 mg/dL (0.70-1.30); Chloride 104 mmol/L (98-107); Estimated GFR 62.67 (mL/min/1.73m2); Glucose 113 mg/dL (74-106); Magnesium 2.1 mg/dL (1.8-2.4); Potassium 4.1 mmol/L (3.5-5.1); Sodium 140 mmol/L (136-145); Total Protein 7.2 g/dL (6.4-8.2)
[2024-04-10] MEDS: Polyethylene Glycol 3350 17 GM PACKET PO (19:50)
[2024-04-10] MEDS: Lidocaine 5% Patch 2 PATCH TP (19:50)
[2024-04-10] MEDS: Diclofenac 1% Gel 100 GM TUBE TP (19:51)
[2024-04-10] MEDS: Docusate Sodium 100 MG CAP PO (19:52)
[2024-04-10] MEDS: Senna TAB 1 TAB PO (19:52)
[2024-04-10] MEDS: Tamsulosin 0.4 MG CAPCR PO (19:52)
[2024-04-10] MEDS: Atorvastatin 40 MG TAB PO (19:52)
[2024-04-10] MEDS: Metoprolol 50 MG TAB 75 MG PO (19:52)
[2024-04-10 23:23] VITALS: BP 107/77; PULSE 72; RESP 18; TEMP 36.1; O2SAT 96
[2024-04-11 02:54] VITALS: BP 117/86; PULSE 75; RESP 18; TEMP 36.4; O2SAT 97
[2024-04-11 07:37] VITALS: BP 128/87; PULSE 85; RESP 18; TEMP 36.3; O2SAT 97
[2024-04-11] MEDS: Acetaminophen 325 MG TAB 650 MG PO ×2 (09:04→14:10)
[2024-04-11] MEDS: Patch Removal 2 EACH TP (09:05)
[2024-04-11] MEDS: Aspirin 81 MG CHEW CH (09:05)
[2024-04-11] MEDS: Allopurinol 300 MG TAB PO (09:05)
[2024-04-11] MEDS: Losartan 25 MG TAB PO (09:05)
[2024-04-11] MEDS: Bumetanide 1 MG TAB PO (09:06)
[2024-04-11] MEDS: Normal Saline Flush 10 ML SYR IVP (09:06)
[2024-04-11] MEDS: Apixaban 5 MG TAB PO (09:06)
[2024-04-11] MEDS: Metoprolol 50 MG TAB 75 MG PO (09:06)
[2024-04-11] MEDS: Pantoprazole 40 MG TABCR PO (09:06)
[2024-04-11] MEDS: Docusate Sodium 100 MG CAP PO (09:17)
--- NOTE | 2024-04-11 09:49 | OT.INTREAT ---
Occupational Therapy Notes Occupational Therapy Inpatient Treatment Note Date: 04/11/24 PRECAUTIONS: Fall, Standard, Full SUBJECTIVE: Pt was sitting in chair when OT arrived. He states that he should be leaving for SNF he thinks today. OBJECTIVE: PAIN:c/o pain in hip/back. He states that he did have an injection which he though took his pain away but he notes that this morning he is so sore. Self Care Training [id number]: OT and pt go over adaptive equipment and use of adaptive equipment for LE dressing. Pt is receptive to education and training provided. OT recommends that have a raised toilet seat when he returns home to (A) with safety of pts toileting routines to decrease fall risk and strain on his back and LE. TREATMENT CODES/TIME: 18537, 15 min Nita Wang OTR/[facility] [place], [place]
[2024-04-11 11:34] VITALS: BP 106/77; PULSE 79; RESP 20; TEMP 36.4; O2SAT 96
--- NOTE | 2024-04-11 11:55 | PT.INTREAT ---
PT Notes Visit Reasons: A,Flutter RVR,CHF,Acuet onchronic PADpleural eff Inpatient Physical Therapy Treatment Note Date: 04/11/24 AM Session PRECAUTIONS: Fall.?Standard.?Activity as tolerated. SUBJECTIVE: Rocco reports looking forward to walking. Ready to go home, but notes likely going to rehab for a bit. Had left hip injection last night by Dr Lowery. He reports it felt really good initially. PAIN: Left lateral thigh 1/10 seated, 4/10 standing with activity OBJECTIVE:? Therapeutic Activities (33126): Direct one-on-one instruction in dynamic activities to improve functional performance: 20 minutes Provided skilled cues and instruction on performance and technique throughout. ? ? ? BED MOBILITY/TRANSFERS? Sit-stand: Supervision Stand-sit: Supervision ? GAIT? Assistive Device: FWW ? Weight bearing: AT Assist: Supervision Distance:? 10ft in room x2 Seated knee extension x10 Seated heel raise x10 Standing left hip circles x5 cw/ccw ASSESSMENT:?Seems to be having increased pain in standing today with reduced tolerances in standing/walking activity. Initially stiff with seated left knee extension, but limbers and to straigthen more fully. PLAN: Continued strength, core, and walking endurance TREATMENT CODE/TIME: 11:32-11:52 (20 minutes) [id number] Morelia Denise, PT, DPT, [facility] [place], [place]
--- NOTE | 2024-04-11 12:20 | DSE_ITS ---
Date of service: 04/11/24 Time of Service: 12:20 DS: Diagnosis Discharge Diagnosis (1) New onset a-fib: Status: Acute (2) PAD (peripheral artery disease): Status: Acute (3) Asthma: Status: Acute (4) Benign prostatic hyperplasia: Status: Acute (5) Chronic bilateral low back pain without sciatica: Status: Acute (6) Abnormal liver enzymes: Status: Acute (7) Hip pain, left: Status: Acute (8) Heart failure with mid-range ejection fraction (HFmEF): Status: Acute (9) Prediabetes: Status: Acute Discharge Plan Disposition Patient Disposition: [facility] Facility(SNF) Condition: Fair Discharge Details Reason For Visit: A,Flutter RVR,CHF,Acuet onchronic PADpleural eff Admit Date/Time: 04/05/24 19:00 Admit Provider: Aj Lowery Attending Provider: Aj Lowery Primary Care Provider: Ludwin Heaton Hospital Course Hospital Course: 78 yo M with history of CHF, HTN, PAD, asthma, chronic low back pain a/w spinal stenosis, BPH, and complex history of chronic leg pain and swelling with diagnoses of gout and CRPS who presented 04/05/24 with suprapubic swelling and was found to be in atrial flutter with RVR. He intially was seen in the emergency room 03/29/24 with abdominal pain, was diagnosed with new onset atrial fibrillation. He declined admission at that point and was discharged on apixaban and metoprolol. He developed some suprapubic swelling and discomfort and stopped the new medications thinking they were the cause. He presented to the emergency room 2 days later with continued symptoms. He was found to be in atrial flutter with rates in the 150s. Admission evaluation included a CTA aorta with runoff which documented significant PAD with multiple occlusions in both legs. There was concern that his discoloration and swelling in the right leg and pain in left hip were related to his PAD. He had negative doppler for DVT. However upon review of history including CTA with runoff from September 2023 and vascular [place] [facility] [place] it did not appear that his symptoms were related to his vascular disease. High intensity statin was started to treat vascular disease. Aspirin 81mg was also started, but given he is also on full dose apixaban, this was not continued. Outpatient follow up with vascular surgery is recommended. His left hip pain started prior to admission while bending over to don a compression stocking, and was felt related to his spinal stenosis. He did have focal tenderness in his left lateral hip over his greater trochanter, and this improved after a injection into the bursa with triamcinolone and lidocaine on 04/10/24. He was evaluated by physical therapy and short term rehabilitation was recommended. His atrial flutter was treated with IV metoprolol and was transitioned to oral. He converted to sinus rhythm overnight 04/09-07/26 and his pulse was in the 70s. Metoprolol was uptitrated during his stay, and he was discharged on 150mg daily of succinate. His echocardiogram showed LVEF 45% with moderate concentric LVH and inferior wall hypokenesis and mildly decreased RV function, down while he was in flutter. Bumetanide, which he was previously prescribed but had be stopped, was resumed. His weight did drop 4kg but he still had LE edema upon discharge. Empaglaflozin was recommended upon discharge. He has follow up with Dr. De La Fuente. Repeat lytes on 04/10 showed normal K+ and Mg++ despite loop diuretic therapy. He had a long QTc on EKG 04/10/24 but this was normal on telemetry prior to discharge. He had mildly elevated AST and alkaline phosphatase and borderline bilirubin on admission. Interestingly, at the 03/29/24 ED visit he was having abdominal pain and the CT suggested possible cholecystitis. During this visit he did not have epigastric/RUQ pain or tenderness. His labs were stable. Prior to his 03/29/24 admission he was drinking 2-3 drinks most nights, but he stopped this. He should consider follow up liver imaging including consideration of elastography to assess for fibrosis. Diabetic neuropathy was on his problem list, but on review of history he was never diagnosed with diabetes. An A1c here was 6.0% c/w pre-diabetes. His bladder volume was noted to be >600ml upon admission and around 300ml post void. He was started on tamsulosin and his post-void scan normalized. It was recommended he stop saw palmetto. Home Meds and New Rx's Prescriptions: New atorvastatin 40 mg Tablet 40 mg PO QPM Qty: 0 0RF methocarbamol 500 mg Tablet 500 mg PO Q4H PRN PRNQty: 0 0RF diclofenac sodium 3 % Gel 0 g topical QID Qty: 0 0RF sennosides [Senokot] 8.6 mg Tablet 8.6 mg PO HS Qty: 30 0RF acetaminophen 325 mg Tablet 650 mg PO Q6H PRN PRNQty: 0 0RF polyethylene glycol 3350 17 gram Powder In Packet 17 g PO DAILY PRN PRNQty: 1 0RF tamsulosin 0.4 mg Capsule 0.4 mg PO HS Qty: 30 0RF lidocaine 5 % Adhesive Patch,Medicated 2 patch topical HS Qty: 0 0RF docusate sodium [Colace] 100 mg Capsule 100 mg PO BID PRN PRN (Reason: Constipation) Qty: 30 0RF bumetanide 1 mg Tablet 1 mg PO DAILY Qty: 0 0RF metoprolol succinate [Toprol XL] 100 mg tablet extended release 24 hr 150 mg PO DAILY Qty: 45 0RF empagliflozin 10 mg tablet 10 mg PO DAILY Qty: 30 0RF Continued albuterol sulfate [Ventolin HFA] 90 mcg/actuation HFA aerosol inhaler 2 puff IH Q6H PRN (Reason: bronchospasm) Qty: 6.7 5RF allopurinol 300 mg tablet 300 mg PO DAILY Qty: 90 3RF ipratropium-albuterol 0.5 mg-3 mg(2.5 mg base)/3 mL solution for nebulization 3 ml IH QID PRN (Reason: shortness of breath) Qty: 180 11RF (DME) nebulizers [Mini Plus Nebulizer] 1 EACH misc 1 ea Miscellaneous QID Qty: 1 0RF losartan 25 mg tablet 25 mg PO DAILY Qty: 90 3RF Eliquis 5 mg tablet 5 mg PO BID 30 Days Qty: 60 0RF Discontinued simvastatin 20 mg tablet 20 mg PO QPM Qty: 90 3RF saw palmetto-pumpkin seed oil 160 MG capsule 5 cap PO DAILY Patient Comments: 01/22 metoprolol tartrate 25 mg tablet 25 mg PO BID 14 Days Qty: 28 0RF Discharge Instructions Additional Instructions: You should have follow up with Dr. De La Fuente as planned to consider medication adjustments and additional testing. You should also follow up with vascular surgery about the circulation to your legs. If the pain in the back and down the left leg isn't improving with physical therapy, consider re-evaluation with your spinal surgeon. Activity:: Activity as Tolerated Equipment/Supplies:: Walker Diet:: As Tolerated DS: Summary Time Spent with Patient providing and/or coordinating discharge services: Greater than 30 minutes Status at Discharge Functional status at discharge: uses cane/walker Overall status at discharge: patient is progressing back to baseline Mental Status: mental status grossly normal Speech and Movement: speech and movement normal Mood: congruent mood Affect: normal affect Quality:SDOH Health Related Social Needs: No Data to Display Exam Narrative Exam Narrative: Well-appearing older gentleman sitting in chair in no acute distress, ANO x 4, heart regular with no murmur, lungs clear to auscultation bilaterally, abdomen soft, nontender, nondistended, +1 pitting edema bilateral lower extremities up to the upper legs. right showing purple/pink discoloration in the foot improving to about mid thigh. less tender left lateral hip over greater trochanter, less pain in hip with flexion of left knee. No overlying redness or heat. Psych Mental Status: mental status grossly normal Speech and Movement: speech and movement normal Mood: congruent mood Affect: normal affect DS: Data Vitals/I&O Vitals and I&O: Vital Signs Temperature 36.4 C L 04/11/24 11:34 Temperature Source Tympanic 04/11/24 11:34 Pulse 79 04/11/24 11:34 Pulse Rhythm Regular 04/11/24 10:45 Pulse 86 04/09/24 10:39 Respiratory Rate 20 04/11/24 11:34 Respiratory Effort Normal 04/11/24 10:45 Respiratory Depth Normal 04/11/24 10:45 Respiratory Pattern Normal 04/11/24 10:45 Blood Pressure 106/77 04/11/24 11:34 Blood Pressure Mean 85 04/09/24 10:39 Blood Pressure Position Supine 04/05/24 11:12 Pulse Oximetry 96 04/11/24 11:34 Oxygen Delivery Method Room Air 04/11/24 11:34 Oxygen Flow Rate 0 04/11/24 11:34 Pain Level 1 04/11/24 11:34 Comment patient reports while eating breakfast his eggs went down the wrong way, noted to have increased coughing, but able to speak and swallow at this time 04/10/24 07:52 Intake & Output 04/10/24 04/11/24 04/11/24 23:59 11:59 23:59 Intake Total 490 / 490 Balance 490 / 490 Intake: Oral 490 / 490 Other: Urine Color Pale Yellow Yellow Urine Appearance Clear Clear Urine Odor Normal Voiding Methods Toilet Toilet Data Completed and Pending Labs on day of discharge: Labs from last 24 hours 04/10/24 19:00 Sodium 140 Potassium 4.1 Chloride 104 Carbon Dioxide 25.7 Anion Gap 10.3 BUN 28 H Creatinine 1.2 Est GFR (CKD-EPI 2020) 62.67 Glucose 113 H Calcium 9.0 Magnesium 2.1 Total Bilirubin 0.6 AST 45 H ALT 45 Alkaline Phosphatase 207 H Total Protein 7.2 Albumin 3.4 PFSH All Active Problems (Updated 04/11/24 @ 13:15 by Aj Lowery) Prediabetes (Acute) Heart failure with mid-range ejection fraction (HFmEF) (Acute) Hip pain, left (Acute) Prolonged QT interval (Acute) Abnormal liver enzymes (Acute) DVT prophylaxis (Acute) Bladder wall thickening (Acute) Abdominal pain (Acute) New onset a-fib (Acute) CRPS (complex regional pain syndrome) type I of lower limb (Acute) Claudication of right lower extremity (Acute) Septic arthritis of right ankle (Acute) PAD (peripheral artery disease) (Acute) Chronic foot pain (Acute) Positive MIKE (antinuclear antibody) (Acute) Rheumatoid factor positive (Acute) Ankle pain, right (Acute) Hypertension (Chronic) Abnormal electrocardiogram (Acute) Right wrist pain (Acute) CHF (congestive heart failure) (Chronic) Hypertriglyceridemia (Acute) Elevated blood pressure reading without diagnosis of hypertension (Acute) Erectile dysfunction (Acute) Asthma (Acute 06/22/13) Gout (Acute) Joint pain (Acute 06/22/13) Status post carpal tunnel release (Acute) Status post laminectomy (Acute 06/11/16) Right leg swelling (Acute) likely venous insuffi Tick bite (Acute) no sign of disease Back pain (Chronic) deteriorated ?related to fall 6 months ago Knee pain (Acute) Hand joint pain (Acute 06/22/13) Chronic bilateral low back pain without sciatica (Acute 06/11/16) Benign prostatic hyperplasia (Acute 06/22/13) Medical History Asthma Hyperlipidemia Gout Surgical History Open Carpal Tunnel release Neck ortho surgery (09/17/15) LUMBAR SURGERY 12/30/16- [facility] MAURICE Family History Sister , AGE 72 Diabetes Mother , AGE 94 Hyperlipidemia Father , 64 Essential hypertension Stroke Lung cancer Brother No problems noted. Social History (Updated 04/05/24 @ 22:20 by Aj Lowery) Smoking/Tobacco Use Status: Never Second Hand Exposure: Yes Smoking risk assessment performed?: Yes Alcohol Intake: current Alcohol Intake frequency: a few times a week Alcohol type: beer Drug use: Never Substance use type: does not use Household members: spouse and none Housing: house Pets and animals: Yes Pets and animals: dog(s) Sexually active: Yes Do you think of yourself as: straight/heterosexual Current gender identity: male What is your relationship status?: Panel score (0-1 are the most socially isolated patients): 1 Seatbelt use: always Drive intox or ride w/intox 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 2 kids in area who look out for him, 3rd estranged. Lost to cancer in 2022 Time Spent with Patient Time Spent with Patient: 45-69 minutes Time was spent: preparing to see the patient(eg.review tests), obtaining and/or reviewing separately otained hiistory, ordering medications,tests, procedures, referring, communicating with other health director of health care marketing, indepentently interpreting results, counseling the patient and care coordination
--- NOTE | 2024-04-11 13:07 | CMDISCH_ITS ---
Date of service: 04/11/24 Time of Service: 13:07 LACE Index Scoring Tool Questions: Length of Stay (in days): 4 - 6 Was the patient admitted via the E.D.?: Yes Comorbidities: PVD, Diabetes w/o Complication and Congestive Heart Failure E.D. Visits: 2 Answers: Total Score: 14 Risk of Readmission: High Risk Care Management Discharge Plan Reason for Hospitalization: Atrial flutter Discharge Plan: Rocco will be transferred to [facility], a intermediate facility in [place], for short term rehab prior to returning home. He will follow up with facility providers and plan of care and transport with family. Patient/Family Education Needs: Review discharge instructions, discuss Ask Me Three Services Needed at Discharge: [facility] SDOH Health Related Social Needs: No Data to Display
== END 2024-04-11 15:05 | disposition skilled nursing facility (03) | DRG 309 ==
LOC: ER 15:54 → ICU 19:51 → MS 04-09 12:59
PROVIDERS: Family Medicine; Physician Assistant; Admitting Provider Family Medicine; Emergency Provider Registered Nurse Emergency; PCP Family Medicine; Visit Provider Family Medicine
DX: I48.92 Unspecified atrial flutter (principal); G90.521 Complex regional pain syndrome I of right lower limb; I50.30 Unspecified diastolic (congestive) heart failure; R18.8 Other ascites; M25.552 Pain in left hip; I48.91 Unspecified atrial fibrillation; J45.909 Unspecified asthma, uncomplicated; N40.0 Benign prostatic hyperplasia without lower urinary tract symptoms; R79.89 Other specified abnormal findings of blood chemistry; M54.50 Low back pain, unspecified; M48.00 Spinal stenosis, site unspecified; E11.42 Type 2 diabetes mellitus with diabetic polyneuropathy; I11.0 Hypertensive heart disease with heart failure; E78.1 Pure hyperglyceridemia; I70.203 Unspecified atherosclerosis of native arteries of extremities, bilateral legs
CPT/HCPCS: 20610; 00123; 36415; 75635; 76857; 80048; 80053; 80061; 80076; 83690; 85027; 93005; 96365; 96366; 96375; 97110; 97140; 97162; 97166; 97530; 97535; 99285; 81003; 83036; 83605; 83735; 83880; 84484; 85025; 85379; 85610; 85730; 93010; 93306; 93970; 94640; 99223; 99233; 99239; J1644; J1941; J2003; J3301; J3490; J7620; Q9967

== ENCOUNTER 2024-04-29 10:56 | Outpatient (CLI) | payer MEDICARE, BC, SELFPAY ==
--- NOTE | 2024-04-29 11:00 | RT.EKG_ITS ---
APPROVED REPORT Exam: Resting ECG Reason for Exam: cardiac evaluation Patient Location: O HR:92 bpm ECG Measurements Heart Rate 92 AXIS NM 181 P 75 QRSd 107 QRS -85 QT 396 T 83 QTc 490 Conclusion Sinus rhythm...normal P axis, V-rate 50- 99 Ventricular premature complex...V complex w/ short R-R interval Inferior infarct, old...Q >35mS, II III aVF Abnormal lateral Q waves...Q >35mS, V5 V6 I aVL Anterior infarct, old...Q >40mS, abnormal ST-T, V2-V5
== END 2024-04-29 10:57 | disposition home or self-care (01) ==
LOC: DI.CARD 11:09
PROVIDERS: PCP Family Medicine; Referring Provider Family Medicine; Visit Provider Internal Medicine Cardiovascular Disease
DX: I50.9 Heart failure, unspecified (principal); I50.22 Chronic systolic (congestive) heart failure; R94.31 Abnormal electrocardiogram [ECG] [EKG]; I48.0 Paroxysmal atrial fibrillation; I10 Essential (primary) hypertension
CPT/HCPCS: 93010

== ENCOUNTER → 2024-04-29 10:56 | Outpatient (BNVA) | payer MEDICARE, BC, SELFPAY | PROVIDERS: PCP Family Medicine; Referring Provider Family Medicine; Visit Provider Internal Medicine Cardiovascular Disease | DX: I48.0 Paroxysmal atrial fibrillation (principal); I10 Essential (primary) hypertension; I49.3 Ventricular premature depolarization | CPT/HCPCS: 93005; 99213 ==

== ENCOUNTER → 2024-06-09 14:34 | Outpatient (BNVA) | payer MEDICARE, BC, SELFPAY | PROVIDERS: PCP Family Medicine; Visit Provider Internal Medicine Cardiovascular Disease | DX: I50.22 Chronic systolic (congestive) heart failure (principal); I48.0 Paroxysmal atrial fibrillation; R94.31 Abnormal electrocardiogram [ECG] [EKG] | CPT/HCPCS: 99213 ==

== ENCOUNTER 2024-09-28 03:19 | Outpatient (CLI) | payer MEDICARE, BC, SELFPAY ==
[2024-09-28 12:36] LABS: Hemoglobin A1C 5.9 % (<5.7)
== END 2024-09-28 03:20 | disposition home or self-care (01) ==
LOC: LOS 03:20
PROVIDERS: PCP Family Medicine; Visit Provider Family Medicine
DX: R73.03 Prediabetes (principal)
CPT/HCPCS: 36415; 83036

== ENCOUNTER 2024-12-06 09:52 | Outpatient (CLI) | payer MEDICARE, BC, SELFPAY ==
--- NOTE | 2024-12-06 10:00 | RT.EKG_ITS ---
APPROVED REPORT Exam: Resting ECG Reason for Exam: chest pain Patient Location: O HR:97 bpm ECG Measurements Heart Rate 97 AXIS MT 169 P 74 QRSd 152 QRS -81 QT 408 T 20 QTc 519 Conclusion Sinus rhythm...normal P axis, V-rate 50- 99 Ventricular premature complex...V complex w/ short R-R interval
== END 2024-12-06 09:53 | disposition home or self-care (01) ==
LOC: DI.CARD 10:03
PROVIDERS: PCP Family Medicine; Referring Provider Family Medicine; Visit Provider Internal Medicine Cardiovascular Disease
DX: R07.9 Chest pain, unspecified (principal)
CPT/HCPCS: 93010

== ENCOUNTER → 2024-12-06 09:52 | Outpatient (BNVA) | payer MEDICARE, BC, SELFPAY | PROVIDERS: PCP Family Medicine; Referring Provider Family Medicine; Visit Provider Internal Medicine Cardiovascular Disease | DX: I50.22 Chronic systolic (congestive) heart failure (principal); I48.91 Unspecified atrial fibrillation; R94.31 Abnormal electrocardiogram [ECG] [EKG] | CPT/HCPCS: 93005; 99214 ==

== ENCOUNTER 2025-02-15 01:36 | Outpatient (CLI) | payer MEDICARE, BC, SELFPAY ==
--- NOTE | 2025-02-15 12:30 | DI.US_ITS ---
APPROVED REPORT EXAM: Comprehensive 2D, Doppler, and color-flow Echocardiogram Patient Location: Out-Patient [place]: Herbert Bailey RDCS (AE) Indications: Recheck LV function, new onset afib, CHF Other Information Study Quality: Fair Conclusion Moderate concentric left ventricular hypertrophy. Patient is in atrial fibrillation with uncontrolle d rate and hivy-tu-soep variation which confounds assessment of systolic function. EF is estimated t o be 45 to 50%. No segmental wall motion abnormalities are identified Normal right ventricular size and function Both atria are moderately enlarged Aortic valve is sclerotic and trileaflet without stenosis or regurgitation Mitral annular calcification. Moderate mitral regurgitation Mild tricuspid regurgitation. Estimated right ventricular systolic pressure is 38 mmHg Ascending aorta measures 3.64 cm Wall motion Left Ventricle Left ventricular cavity is small. Left ventricular systolic function is mildly decreased. Moderate co ncentric left ventricular hypertrophy. No segmental wall motion abnormalities There is no ventricular septal defect visualized. LVEF is 45 to 50% Right Ventricle The right ventricle is normal size. The right ventricular systolic function is normal. Atria Left atrium is moderately dilated. Right atrium is moderately dilated. The interatrial septum is inta ct with no evidence for an atrial septal defect. Aortic Valve The aortic valve is sclerotic. There is no aortic valvular stenosis. No aortic regurgitation is prese nt. Mitral Valve Mild mitral annular calcification. No evidence of mitral valve stenosis. Moderate mitral regurgitatio n. Tricuspid Valve The tricuspid valve is normal in structure. There is no tricuspid valve stenosis. Mild tricuspid regu rgitation. The RVSP is 38.1 mmHg. Pulmonic Valve The pulmonary valve is normal in structure. There is no pulmonic valvular stenosis. Trace pulmonic re gurgitation. Great Vessels The aortic root is normal in size. The ascending aorta is mildly dilated. Aortic arch is normal in ca liber. The IVC collapses <50% with inspiration. Pericardium Trace pericardial effusion. 2D Dimensions IVSD d PLAX 1.99 cm M: 0.6-1.2 Ao Root d 2.97 cm M: 3.1 - 3.7 LVPW d PLAX 1.96 cm M: 0.6 - 1.2 Ao Asc Diam d 3.64 cm M: 2.6 - 3.4 LVID d PLAX 3.52 cm M: 4.2 - 5.8 LVDs 2.96 cm M: 2.5 - 4.0 LV EF Teichholz 34.1 % FS 15.78 % LV EDV (Teich) 51.5 mL LV ESV (Teich) 33.9 mL Stroke Vol Index (Teich) 8.24 M-Mode TAPSE 0.82 cm (M/F) >1.7 Auto EF LV EDV A4C 63.0 mL LV EDV A2C 61.4 mL LV EDV BP 63.5 mL LV ESV A4C 42.9 mL LV ESV A2C 39.1 mL LV ESV BP 41.4 mL LVEF(%) A4C 31.9 % LVEF(%) A2C 36.4 % LVEF(%) BP 34.8 % LV SV A4C 20.1 ml LV SV A2C 22.3 ml LV SV BP 22.1 ml LV CO A4C 2.9 L/min LV CO A2C 3.1 L/min LV CO BP 3.0 L/min HR A4C 146.35 BPM HR A2C 139.54 BPM LV EDV Index (BP) LA Volume LA Length A4C 5.9 cm LA Length A2C 6.0 cm LA Area A4C s 17.55 cm2 LA Area A2C s 18.15 cm2 LA Vol A4C A-L 44.16 mL LA Vol A2C A-L 46.69 mL LA Vol Biplane A-L 45.7 mL LA Vol/BSA A4C A-L LA Vol/BSA A2C A-L LA Vol/BSA BP A-L 21.4 mL/m2 LA Vol A4C MOD 42.4 mL LA Vol A2C MOD 44.6 mL LA Vol BP MOD 43.5 mL RA Volume RA Area A4C 15.1 cm2 RA ESV A4C (A-L) 33.8mL RA Vol/BSA A4C A-L RA Length A4C 5.7 cm RA ESV A4C (MOD) 31.6mL LV Diastology MV E Vmax 1.14 (0.4-1.3 m/s) Aortic Valve AoV Vmax 1.56 m/s LVOT Vmax 0.78 m/s AoV Peak Grad 9.8 mmHg LVOT Peak Grad 2.4 mmHg AoV Area (Vmax) 1.35 cm2 LVOT VTI 0.112 m AoV VTI 0.232 m LVOT Mean Grad 1.7 mmHg AoV Mean Heladio. 1.12 m/s LVOT SV 30.11 mL AoV Mean Grad 5.7 mmHg LVOT Diam s 1.85 cm AoV Area (VTI) 1.30 cm2 AV Regurg Peak Gr. 9.76 mmHg Velocity Ratio 0.50 Mitral Valve MV Vmax TIPS 1.00 m/s MV Mean Grad 2.0 (<2mmHg) MV VTI 0.127 m Pulmonary Valve PV Vmax 0.65 (0.5-1.5 m/s) RVOT Vmax 0.63 m/s PV Peak Grad 1.7 mmHg RVOT Peak Gr. 1.6 mmHg PV Mean Heladio 0.51 m/s RVOT VTI 0.100 m PV Mean Grad 1.1 mmHg RVOT Mean Gr. 0.8 mmHg Tricuspid Valve RA Pressure 8.00 mmHg TR Vmax 2.74 m/s TV S' 0.08 m/s TR Peak Grad 30.0 mmHg RVSP (TR) 38.1 mmHg
== END 2025-02-15 01:56 ==
LOC: DI 01:36
PROVIDERS: PCP Family Medicine; Visit Provider Internal Medicine Cardiovascular Disease
DX: I51.7 Cardiomegaly (principal)
CPT/HCPCS: 93306

== ENCOUNTER 2025-03-24 09:12 | Outpatient (CLI) | payer MEDICARE, BC, SELFPAY ==
--- NOTE | 2025-03-24 09:15 | RT.EKG_ITS ---
APPROVED REPORT Exam: Resting ECG Reason for Exam: baseline Patient Location: O HR:139 bpm ECG Measurements Heart Rate 139 AXIS LA 61 P 136 QRSd 134 QRS 242 QT 351 T -40 QTc 534 Conclusion SVT, likely atrial flutter
== END 2025-03-24 09:13 | disposition home or self-care (01) ==
LOC: DI.CARD 09:24
PROVIDERS: PCP Family Medicine; Referring Provider Family Medicine; Visit Provider Internal Medicine Cardiovascular Disease
DX: I48.0 Paroxysmal atrial fibrillation (principal); I47.19 Other supraventricular tachycardia; I48.92 Unspecified atrial flutter; I50.22 Chronic systolic (congestive) heart failure
CPT/HCPCS: 93010

== ENCOUNTER → 2025-03-24 09:12 | Outpatient (BNVA) | payer MEDICARE, BC, SELFPAY | PROVIDERS: PCP Family Medicine; Referring Provider Family Medicine; Visit Provider Internal Medicine Cardiovascular Disease | DX: I48.92 Unspecified atrial flutter (principal); I50.22 Chronic systolic (congestive) heart failure; I48.0 Paroxysmal atrial fibrillation | CPT/HCPCS: 99214; 93005 ==

== ENCOUNTER 2025-04-05 09:55 | Outpatient (CLI) | payer MEDICARE, BC, SELFPAY ==
--- NOTE | 2025-04-05 09:45 | DI.RAD_ITS ---
Exam(s) XR ABDOMEN FLAT UPRIGHT EXAM: 2D digital imaging was performed. CLINICAL HISTORY: Acute distention with pain,r10.9. COMPARISON: No exams were available for comparison TECHNIQUE: Supine and upright views of the abdomen was performed. Three images were obtained. FINDINGS: LUNG BASES: Clear. BOWEL GAS PATTERN: Nondistended. There is air seen in both the small and large bowel. No distended b owel loops are seen to suggest obstruction. FREE AIR: None. CALCIFICATIONS: Vascular calcifications are present. OSSEOUS STRUCTURES: Normal for age. There is a mild right convex lumbar scoliosis. OTHER FINDINGS: None. IMPRESSION: No evidence of an acute abdomen. DATA REPOSITORY: RADIATION DOSE DELIVERED:
== END 2025-04-05 10:15 ==
LOC: DI 09:56
PROVIDERS: PCP Family Medicine; Visit Provider Nurse Practitioner Family
DX: R10.9 Unspecified abdominal pain (principal)
CPT/HCPCS: 74019

== ENCOUNTER 2025-04-07 09:32 | Outpatient (CLI) | payer MEDICARE, BC, SELFPAY ==
--- NOTE | 2025-04-07 09:30 | RT.EKG_ITS ---
APPROVED REPORT Exam: Resting ECG Reason for Exam: A flutter Patient Location: O HR:100 bpm ECG Measurements Heart Rate 100 AXIS SC [id number] P [id number] QRSd 142 QRS -53 QT 393 T 254 QTc 507 Conclusion Atrial flutter...A-rate 272 LBBB
== END 2025-04-07 09:33 | disposition home or self-care (01) ==
LOC: DI.CARD 09:44
PROVIDERS: PCP Family Medicine; Referring Provider Family Medicine; Visit Provider Internal Medicine Cardiovascular Disease
DX: I48.92 Unspecified atrial flutter (principal)
CPT/HCPCS: 93010

== ENCOUNTER → 2025-04-07 09:32 | Outpatient (BNVA) | payer MEDICARE, BC, SELFPAY | PROVIDERS: PCP Family Medicine; Referring Provider Family Medicine; Visit Provider Internal Medicine Cardiovascular Disease | DX: I48.92 Unspecified atrial flutter (principal); I50.22 Chronic systolic (congestive) heart failure | CPT/HCPCS: 99214; 93005 ==

== ENCOUNTER 2025-04-07 10:01 | Inpatient (IN) | payer MEDICARE, BC, SELFPAY ==
[2025-04-07] VITALS (60 sets, daily range): BP systolic 92–128; BP diastolic 61–98; PULSE 55–141; RESP 7–23; TEMP 36.1–36.8; O2SAT 94–99
--- NOTE | 2025-04-07 10:00 | RT.EKG_ITS ---
APPROVED REPORT Exam: Resting ECG Reason for Exam: cards sent Patient Location: E HR:108 bpm ECG Measurements Heart Rate 108 AXIS SC [id number] P [id number] QRSd 146 QRS -68 QT 386 T 256 QTc 519 Conclusion Atrial flutter...A-rate 272 Ventricular premature complex...V complex w/ short R-R interval Left ventricular hypertrophy...multiple LVH criteria Anterior infarct, old...Q >40mS, abnormal ST-T, V2-V5
--- NOTE | 2025-04-07 10:00 | DI.CT_ITS ---
Exam(s) CT ABDOMEN PELVIS W EXAM: CT ABDOMEN PELVIS W CLINICAL HISTORY: suprapubic pain; scrotal edema. TECHNIQUE: Imaging Protocol: Axial computed tomography images with coronal and sagittal reformatted images were created and reviewed CONTRAST MATERIAL: Intravenous: Omnipaque-350 75cc Oral: None COMPARISON: CT CT ABD AORTA CTA W RUNOFF from 04/05/2024 FINDINGS: VISUALIZED LUNG BASES: there is small-moderate size bilateral pleural effusions, right slightly large r than left.. There is also a small-moderate size pericardial effusion. There is also mild infiltra te in the right lung base ABDOMEN: There is generalized moderate anasarca over the abdomen and extending down into the upper extremities . There is mild ascites which is predominately perihepatic and in the lower pelvis. There is also gene ralized haziness of the mesentery. LIVER: Liver exhibits somewhat cirrhotic appearance. No evidence of liver mass. No dilated intrahep atic ducts. GALLBLADDER/BILIARY: There is pericholecystic fluid which may be related to the ascites. No obvious calcified gallstones in the gallbladder lumen. CBD is not dilated. PANCREAS: No evidence of pancreatic mass nor dilatation of the pancreatic duct. SPLEEN: Spleen is not enlarged. No obvious intrasplenic lesions. Splenic and portal veins are paten t. ADRENALS: Right adrenal gland unremarkable. Slight thickening of the genu of the left adrenal gland is again noted. KIDNEYS:No cysts evident. No solid renal masses. No calculi nor hydronephrosis.. ABDOMINAL AORTA: Abdominal aorta is calcified but not enlarged. Iliac arteries are also calcified bu t not enlarged. LYMPH NODES:There is no retroperitoneal nor paraaortic adenopathy. ABDOMINAL WALL: No evidence of significant anterior abdominal wall nor inguinal hernia. GI: There is no evidence of bowel obstruction, free air, nor abscess. PELVIS: GI: No evidence of appendicitis.There is extensive sigmoid diverticulosis.. No obvious acute diverti culitis. LYMPH NODES: There is no intrapelvic nor inguinal adenopathy. REPRODUCTIVE: Prostate size upper normal. There are bilateral hydroceles. URINARY BLADDER: There is significant uniform thickening and enhancement of the urinary bladder wall as well as Lia vesicular streaking. Consistent with cystitis. There is no gas in the urinary bladd er wall nor within the bladder lumen. OSSEOUS: No fractures and no significant osseous lesions. Advanced disc space narrowing L3-4 level. No listhesis. No osseous lesions. IMPRESSION: 1. There is generalized relatively symmetrical anasarca over the abdomen and pelvis and extending dante n into the lower extremities. There is also a small amount of ascites around the liver and in the pe lvis and generalized haziness of the mesentery. Also bilateral pleural effusions. Small pericardial effusion. 2. There is fluid around the gallbladder. This pericholecystic fluid, however, may just Related to the ascites as opposed to intrinsic gallbladder pathology. There are no calcified gallsto kiet seen on the CT images. If clinically indicated further study of the gallbladder with ultrasound can be performed. 3. Cirrhotic appearing liver. No liver mass. No splenomegaly. 4. Prominent uniform thickening of the urinary bladder wall suspicious for cystitis. Pelvic ureters are not dilated. There are no distinct masses nor radiopaque calculi in the bladder lumen and there is no gas in the bladder lumen. 5. There is extensive sigmoid diverticulosis but without evidence of obvious acute diverticulitis. 6. There are bilateral hydroceles in the scrotal sac. Suspect that this is part of the generalized anasarca. Findings discussed with ER provider 04/07/2025 at 1:30 p.m. RADIATION DOSE DELIVERED: 728.02mGy.cm Total DLP DATA REPOSITORY: All CT scans at this facility are submitted to the National Radiology Data Registry (NRDR) Dose Index Registry (DIR) with the [employer] ([employer]). RADIATION OPTIMIZATION: All CT scans at this facility use at least one of these dose optimization te chniques: automated exposure control; mA and/or kV adjustment per patient size (includes targeted exa ms where dose is matched to clinical indication); or iterative reconstruction.
[2025-04-07 10:30] LABS: Abs Immature Grans 0.03 10^3/uL (0.0-0.06); Absolute Basophil Count 0.04 10^3/uL (0.0-0.2); Absolute Eosinophil Count 0.07 10^3/uL (0.0-0.7); Absolute Lymphocyte Count 0.98 10^3/uL (1.2-3.4); Absolute Monocyte Count 0.51 10^3/uL (0.1-0.8); Absolute Neutrophil Count 4.21 10^3/uL (1.2-6.7); Basophils % 0.7 %; Eosinophils % 1.2 %; HCT 41.4 % (40.0-50.0); HGB 13.9 g/dL (13.5-17.5); Immature Grans % 0.5 %; Lactate 1.6 mmol/L (<or=2.0); Lymphocytes % 16.8 %; MCH 31.7 pg (27.0-33.0); MCHC 33.6 % (32.0-36.0); MCV 94 fL (80-95); MPV 11.4 fL (8.0-11.0); Monocytes % 8.7 %; Neutrophils % 72.1 %; Platelet Count 155 10^3/uL (130-400); RBC 4.39 10^6/uL (4.36-5.78); RDW-SD 48.1 fL; WBC 5.84 10^3/uL (4.4-10.8)
--- NOTE | 2025-04-07 11:18 | ED.GENADUL_ITS ---
Discharge Plan Disposition Patient Disposition: Admit to [facility] Condition: Stable Discharge Details Chief Complaint: GenMedical Clinical Impression: Anasarca, CHF exacerbation, Atrial flutter with rapid ventricular response Primary Care Provider: Ludwin Heaton ED Provider: Marcus Gamble Home Meds and New Rx's Prescriptions: No Action bumetanide 1 mg tablet 0.5 mg PO QDAY Patient Comments: 12/06/24 takes 0.5 mg daily RH albuterol sulfate [Ventolin HFA] 90 mcg/actuation HFA aerosol inhaler 2 puff IH Q6H PRN (Reason: bronchospasm) Qty: 6.7 5RF allopurinol 300 mg tablet 300 mg PO DAILY Qty: 90 3RF ipratropium-albuterol 0.5 mg-3 mg(2.5 mg base)/3 mL solution for nebulization 3 ml IH QID PRN (Reason: shortness of breath) Qty: 180 11RF metoprolol succinate 50 mg tablet extended release 24 hr 50 mg PO BID Qty: 180 3RF (DME) nebulizers [Mini Plus Nebulizer] 1 EACH misc 1 ea Miscellaneous QID Qty: 1 0RF atorvastatin 40 mg tablet 40 mg PO QPM Qty: 90 3RF tamsulosin 0.4 mg capsule 0.4 mg PO HS Qty: 90 3RF Eliquis 5 mg tablet 5 mg PO BID Qty: 180 3RF losartan 25 mg tablet 25 mg PO DAILY Qty: 90 3RF HPI General Date/Time Provider Initiated Documentation: 04/07/25 10:12 . HPI Narrative: 79 year-old male presents to ED today by POV/ambulating, sent over from routine Cardiology visit with Dr. De La Fuente, with a chief complaint of excessive shortness of breath, increased swelling, weight-gain of #15lbs., lower abdominal pain, scrotal swelling, and tachycardia with onset over the past week to two weeks. Quality described as generalized malaise, lower abdominal tension and pain, no radiation to overt crushing chest pain, visual changes, near syncope, fever, warmth or tenderness to scrotum, dysuria, discharge, urinary retention, endorses shortness of breath on exertion. Severity is described as moderate to severe. Palliating factors include nothing specific attempted- patient discontinued his Bumex last week as it was causing his stomach to be upset. Provoking factors include nothing specific. Patient is anticoagulated on apixaban. Related Data Home Medications ?Medication ?Instructions ?Recorded ?Confirmed nebulizers (Mini Plus Nebulizer #1 ea 03/10/18 [place] [facility] [place] apixaban 5 mg tablet (Eliquis) 5 mg PO BID #180 tabs 05/03/24 04/07/25 atorvastatin 40 mg tablet 40 mg PO QPM #90 tabs 05/03/24 04/07/25 tamsulosin 0.4 mg capsule 0.4 mg PO HS #90 caps 05/03/24 04/07/25 bumetanide 1 mg tablet 0.5 mg PO QDAY 12/06/24 04/07/25 albuterol sulfate 90 mcg/actuation 2 puff inhalation Q6H PRN 12/08/24 04/07/25 aerosol inhaler (Ventolin HFA) bronchospasm #6.7 grams allopurinol 300 mg tablet 300 mg PO DAILY #90 tabs 12/08/24 04/07/25 ipratropium 0.5 mg-albuterol 3 mg 3 ml inhalation QID PRN shortness 12/08/24 04/07/25 (2.5 mg base)/3 mL nebulization of breath #180 mL soln losartan 25 mg tablet 25 mg PO DAILY #90 tabs 02/17/25 04/07/25 metoprolol succinate 50 mg 50 mg PO BID #180 tabs 03/24/25 04/07/25 tablet,extended release 24 hr Previous Rx's ?Medication ?Instructions ?Recorded nebulizers (Mini Plus Nebulizer #1 e[place]10[place] [facility] [place] apixaban 5 mg tablet (Eliquis) 5 mg PO BID #180 tabs 05/03/24 atorvastatin 40 mg tablet 40 mg PO QPM #90 tabs 05/03/24 tamsulosin 0.4 mg capsule 0.4 mg PO HS #90 caps 05/03/24 albuterol sulfate 90 mcg/actuation 2 puff inhalation Q6H PRN 12/08/24 aerosol inhaler (Ventolin HFA) bronchospasm #6.7 grams allopurinol 300 mg tablet 300 mg PO DAILY #90 tabs 12/08/24 ipratropium 0.5 mg-albuterol 3 mg 3 ml inhalation QID PRN shortness 12/08/24 (2.5 mg base)/3 mL nebulization of breath #180 mL soln losartan 25 mg tablet 25 mg PO DAILY #90 tabs 02/17/25 metoprolol succinate 50 mg 50 mg PO BID #180 tabs 03/24/25 tablet,extended release 24 hr Allergies Allergy/AdvReac Type Severity Reaction Status Date / Time shellfish derived Allergy Severe Anaphylaxsi Verified 04/07/25 10:26 s Opioids - Morphine Analogues AdvReac Severe nausea and Verified 04/07/25 10:26 vomiting buprenorphine AdvReac Intermediate Nausea Verified 04/07/25 10:26 spironolactone AdvReac Intermediate Stomach Verified 04/07/25 10:26 pain HORSE SERUM PROTEINS Allergy Intermediate Nasal Uncoded 04/07/25 10:26 congestion General Stated Complaint: GenMedical KASSIDY: 3 Review of Systems All systems reviewed & are unremarkable except as noted in HPI and below Exam Narrative Exam Narrative: GENERAL APPEARANCE: Obesity, non-toxic, awake and alert, atraumatic, moderate acute distress. SKIN: Warm, pink, dry, intact, without rashes/lesions/ulcerations. HEAD: Normocephalic, atraumatic, normal hair distribution for gender/age. EYES: Normal conjunctiva, no exudates on lids/lashes. ENT: Nares patent, no circumoral cyanosis, no facial swelling NECK: Supple, trachea midline, painless cervical ROM. LUNGS/CHEST: Lungs -rales at bases, labored respirations, normal A/P diameter, symmetrical expansion, no chest wall deformity HEART (CV/PV): Irregular rate and rhythm without murmur, 3+ peripheral edema, no JVD. ABDOMEN: Hard, distended, no guarding, suprapubic tenderness and firmness, scrotal edema without erythema, warmth or tenderness to testicles. MSK: Normal ROM, no deformity to bilateral UEs or LEs, moving all extremities without weakness, no cyanosis, spine midline without tenderness, normal curvature. NEURO: Mental Status AAOx4 - alert to person, place, time, events No facial droop, no forehead involvement. Motor: No focal weakness - strength 5/5 in bilateral UEs and LEs, proximal and distal, symmetric. Sensory: sensation intact to light touch globally. Gait normal: patient ambulated without ataxia into ED room. PSYCH: euthymic, cooperative, pleasant, appropriate speech Course Vital Signs Vital signs: Vital Signs Pulse 138 H 04/07/25 10:09 Pulse Oximetry 98 04/07/25 10:09 Temperature 36.8 C 04/07/25 10:27 Temperature Source Oral 04/07/25 10:27 Pulse 99 H 04/07/25 10:50 Pulse 91 H 04/07/25 10:50 Respiratory Rate 20 04/07/25 10:52 Respiratory Effort Normal 04/07/25 10:52 Respiratory Depth Normal 04/07/25 10:52 Respiratory Pattern Normal 04/07/25 10:52 Blood Pressure 97/73 L 04/07/25 10:47 Blood Pressure Mean 80 04/07/25 10:47 Blood Pressure Position Supine 04/07/25 10:27 Pulse Oximetry 96 04/07/25 10:50 Oxygen Delivery Method Room Air 04/07/25 10:27 Oxygen Flow Rate 0 04/07/25 10:27 Pain Level 3 04/07/25 10:27 Lab/Test Results Lab/Test Results: Laboratory Tests Range/Units 04/07/25 10:24 WBC (4.4-10.8) 10^3/uL 5.84 RBC (4.36-5.78) 10^6/uL 4.39 Hgb (13.5-17.5) g/dL 13.9 Hct (40.0-50.0) % 41.4 MCV (80-95) fL 94 MCH (27.0-33.0) pg 31.7 MCHC (32.0-36.0) % 33.6 RDW (11.8-14.1) % 14.0 Plt Count (130-400) 10^3/uL 155 MPV (8.0-11.0) fL 11.4 H Immature Gran % % 0.5 Neutrophils % % 72.1 Lymphocytes % % 16.8 Monocytes % % 8.7 Eosinophils % % 1.2 Basophils % % 0.7 Nucleated RBC % (0.0-0.3) % 0.0 Absolute Neutrophils (1.2-6.7) 10^3/uL 4.21 Absolute Lymphocytes (1.2-3.4) 10^3/uL 0.98 L Absolute Monocytes (0.1-0.8) 10^3/uL 0.51 Absolute Eosinophils (0.0-0.7) 10^3/uL 0.07 Absolute Basophils (0.0-0.2) 10^3/uL 0.04 VBG Lactate (<or=2.0) mmol/L 1.6 Sodium Cancelled Potassium Cancelled Chloride Cancelled Carbon Dioxide Cancelled Anion Gap Cancelled BUN Cancelled Creatinine Cancelled Est GFR (CKD-EPI 2020) Cancelled Glucose Cancelled Calcium Cancelled Total Bilirubin Cancelled AST Cancelled ALT Cancelled Alkaline Phosphatase Cancelled Troponin I Cancelled C-Reactive Protein Cancelled NT-Pro-B Natriuret Pep Cancelled Total Protein Cancelled Albumin Cancelled Lipase Cancelled Medical Decision Making This dictation utilizes [id number] dictation software and may contain unedited grammatical errors. 79 year-old male presents to ED today by POV/ambulating, sent over from routine Cardiology visit with Dr. De La Fuente, with a chief complaint of excessive shortness of breath, increased swelling, weight-gain of #15lbs., lower abdominal pain, scrot al swelling, and tachycardia with onset over the past week to two weeks. Quality described as generalized malaise, lower abdominal tension and pain, no radiation to overt crushing chest pain, visual changes, near syncope, fever, warmth or tenderness to scrotum, dysuria, discharge, urinary retention, endorses shortness of breath on exertion. Severity is described as moderate to severe. Palliating f actors include nothing specific attempted- patient discontinued his Bumex last week as it was causing his stomach to be upset. Provoking factors include nothing specific. Patients' medical history: Atrial fibrillation/flutter, anasarca, hyperlipidemia, asthma, gout, cirrhosis of liver, CHF, hypertension, BPH. Family and social history: Patient lives at home independently, denies smoking or drug use, no recent travel no sick contacts. Pertinent exam findings / vital signs include diffuse edema to lower extremities 3+, scrotal edema without warmth to touch, no exquisite tenderness to the teste s, no erythema at urethral meatus or discharge, suprapubic firmness and tenderness, mild right upper quadrant tenderness without rebound tenderness or Harmon sign, Rales at bases of lungs, heart rate 135 on arrival, neuro intact, afebrile. Differential / pathologies of concern include CHF, anasarca, medication nonadherence, outpatient failure, ACS, UTI, Maida's gangrene, ascites, biliary colic. Diagnostic studies of: - CBC, CMP, lactate, BNP, CRP, serial troponins, lipase, UA, EKG, CT ABD/pelvis with contrast. - CBC shows no leukocytosis, no anemia - Lactate negative - CMP shows a nonspecific elevation of bilirubin with mild elevation of BUN at 26 -adding conjugated bilirubin - Serial troponins are stable at 39 - CRP is negative - BNP is significantly increased at 5200 - Lipase negative - EKG shows atrial flutter at 108 bpm with PVCs, LVH, evidence of old anterior infarct Interventions of: -Consulted hospitalist for admission- accepted by Dr. Lowery at 1500. ED Course/Assessment/Plan: 79-year-old male with anasarca, suprapubic tenderness likely linked to his anasarca with hydroceles likely anasarca in the scrotum presents with increasing shortness of breath on exertion, noncompliance with his Bumex, he has also discontinued his double compression stockings and has them only senior living up his calves. He is had tentatively rate controlled atrial flutter here, he was tach ycardic on arrival to 138 but has been spending most of his time around 112-115, I have held of metoprolol IV push dose due to this. He reports a 15 pound weight gain over the past couple weeks. His blood pressure has been systolic in the 100s, I think this patient would benefit from monitored IV diuresis in the inpatient setting as he has many chronic comorbidities and has shown inability to perform outpatient therapy, his troponins are stable, I did add on a conjugated bilirubin to his mild elevation of bilirubin on CMP this is pending at time of admission, his CT showed no other acute intervenable abnormality, he has ascites he had fluid around the gallbladder but no wall thickening, no CBD dilatation, uniform thickening of bladder wall but no evidence of UTI on UA. Patient was accepted for admission for IV diuresis. Disposition of Anasarca, Atrial Flutter with Rapid Ventricular Response, CHF exacerbation. Patient verbalized understanding of the plan and return to ED criteria and engaged in shared decision making. Medical Records Medical records reviewed: Yes I reviewed the patient's medical records. Imaging Data Radiologic Study: Attestation: I personally reviewed and interpreted this imaging study as follows: Imaging: CT Scan Radiologist's impression: EXAM: CT ABDOMEN PELVIS W CLINICAL HISTORY: suprapubic pain; scrotal edema. TECHNIQUE: Imaging Protocol: Axial computed tomography images with coronal and sagittal reformatted images were created and reviewed CONTRAST MATERIAL: Intravenous: Omnipaque-350 75cc Oral: None COMPARISON: CT CT ABD AORTA CTA W RUNOFF from 04/05/2024 FINDINGS: VISUALIZED LUNG BASES: there is small-moderate size bilateral pleural effusions, right slightly larger than left.. There is also a small-moderate size pericardial effusion. There is also mild infiltrate in the right lung base ABDOMEN: There is generalized moderate anasarca over the abdomen and extending down into the upper extremities. There is mild ascites which is predominately perihepatic and in the lower pelvis. There is also generalized haziness of the mesentery. LIVER: Liver exhibits somewhat cirrhotic appearance. No evidence of liver mass. No dilated intrahepatic ducts. GALLBLADDER/BILIARY: There is pericholecystic fluid which may be related to the ascites. No obvious calcified gallstones in the gallbladder lumen. CBD is not dilated. PANCREAS: No evidence of pancreatic mass nor dilatation of the pancreatic duct. SPLEEN: Spleen is not enlarged. No obvious intrasplenic lesions. Splenic and portal veins are patent. ADRENALS: Right adrenal gland unremarkable. Slight thickening of the genu of the left adrenal gland is again noted. KIDNEYS:No cysts evident. No solid renal masses. No calculi nor hydronephrosis.. ABDOMINAL AORTA: Abdominal aorta is calcified but not enlarged. Iliac arteries are also calcified but not enlarged. LYMPH NODES:There is no retroperitoneal nor paraaortic adenopathy. ABDOMINAL WALL: No evidence of significant anterior abdominal wall nor inguinal hernia. GI: There is no evidence of bowel obstruction, free air, nor abscess. PELVIS: GI: No evidence of appendicitis.There is extensive sigmoid diverticulosis.. No obvious acute diverticulitis. LYMPH NODES: There is no intrapelvic nor inguinal adenopathy. REPRODUCTIVE: Prostate size upper normal. There are bilateral hydroceles. URINARY BLADDER: There is significant uniform thickening and enhancement of the urinary bladder wall as well as Lia vesicular streaking. Consistent with cystitis. There is no gas in the urinary bladder wall nor within the bladder lumen. OSSEOUS: No fractures and no significant osseous lesions. Advanced disc space narrowing L3-4 level. No listhesis. No osseous lesions. IMPRESSION: 1. There is generalized relatively symmetrical anasarca over the abdomen and pelvis and extending down into the lower extremities. There is also a small amount of ascites around the liver and in the pelvis and generalized haziness of the mesentery. Also bilateral pleural effusions. Small pericardial effusion. 2. There is fluid around the gallbladder. This pericholecystic fluid, however, may just Related to the ascites as opposed to intrinsic gallbladder pathology. There are no calcified gallstones seen on the CT images. If clinically indicated further study of the gallbladder with ultrasound can be performed. 3. Cirrhotic appearing liver. No liver mass. No splenomegaly. 4. Prominent uniform thickening of the urinary bladder wall suspicious for cyst itis. Pelvic ureters are not dilated. There are no distinct masses nor radiopaque calculi in the bladder lumen and there is no gas in the bladder lumen. 5. There is extensive sigmoid diverticulosis but without evidence of obvious acute diverticulitis. 6. There are bilateral hydroceles in the scrotal sac. Suspect that this is part of the generalized anasarca. Findings discussed with ER provider 04/07/2025 at 1:30 p.m. Lab Data Lab results reviewed: Yes I reviewed the patient's lab results. Labs: Laboratory Tests Range/Units 04/07/25 04/07/25 04/07/25 10:24 10:46 11:51 WBC (4.4-10.8) 10^3/uL 5.84 RBC (4.36-5.78) 10^6/uL 4.39 Hgb (13.5-17.5) g/dL 13.9 Hct (40.0-50.0) % 41.4 MCV (80-95) fL 94 MCH (27.0-33.0) pg 31.7 MCHC (32.0-36.0) % 33.6 RDW (11.8-14.1) % 14.0 Plt Count (130-400) 10^3/uL 155 MPV (8.0-11.0) fL 11.4 H Immature Gran % % 0.5 Neutrophils % % 72.1 Lymphocytes % % 16.8 Monocytes % % 8.7 Eosinophils % % 1.2 Basophils % % 0.7 Nucleated RBC % (0.0-0.3) % 0.0 Absolute Neutrophils (1.2-6.7) 10^3/uL 4.21 Absolute Lymphocytes (1.2-3.4) 10^3/uL 0.98 L Absolute Monocytes (0.1-0.8) 10^3/uL 0.51 Absolute Eosinophils (0.0-0.7) 10^3/uL 0.07 Absolute Basophils (0.0-0.2) 10^3/uL 0.04 VBG Lactate (<or=2.0) mmol/L 1.6 Sodium Cancelled 138 Potassium Cancelled 4.3 Chloride Cancelled 103 Carbon Dioxide Cancelled 25.1 Anion Gap Cancelled 9.9 BUN Cancelled 26 H Creatinine Cancelled 1.1 Est GFR (CKD-EPI 2020) Cancelled 69.14 Glucose Cancelled 110 H Calcium Cancelled 9.3 Total Bilirubin Cancelled 1.4 H AST Cancelled 51 H ALT Cancelled 34 Alkaline Phosphatase Cancelled 217 H Troponin I Cancelled 39 39 C-Reactive Protein Cancelled < 0.50 NT-Pro-B Natriuret Pep Cancelled 5245 H Total Protein Cancelled 6.9 Albumin Cancelled 3.6 Lipase Cancelled 40 Urine Color (Yellow) Urine Clarity (Clear) Urine pH (5-8) Ur Specific [place] (1.005-1.025) Urine Protein (Neg-Trace) mg/dL Urine Ketones (Negative) mg/dL Urine Blood (Negative) Urine Nitrite (Negative) Urine Bilirubin (Negative) Urine Urobilinogen (Up to 0.2) mg/dL Ur Leukocyte Esterase (Negative) Urine RBC (0-2) HPF Urine WBC (0-5) HPF Ur Epithelial Cells (Negative) HPF Urine Crystals (Negative) HPF Urine Bacteria (Negative) HPF Urine Casts (Negative) LPF Urine Mucus (Negative) Ur Culture Indicated? Urine Glucose (Negative) mg/dL Range/Units 04/07/25 12:09 WBC (4.4-10.8) 10^3/uL RBC (4.36-5.78) 10^6/uL Hgb (13.5-17.5) g/dL Hct (40.0-50.0) % MCV (80-95) fL MCH (27.0-33.0) pg MCHC (32.0-36.0) % RDW (11.8-14.1) % Plt Count (130-400) 10^3/uL MPV (8.0-11.0) fL Immature Gran % % Neutrophils % % Lymphocytes % % Monocytes % % Eosinophils % % Basophils % % Nucleated RBC % (0.0-0.3) % Absolute Neutrophils (1.2-6.7) 10^3/uL Absolute Lymphocytes (1.2-3.4) 10^3/uL Absolute Monocytes (0.1-0.8) 10^3/uL Absolute Eosinophils (0.0-0.7) 10^3/uL Absolute Basophils (0.0-0.2) 10^3/uL VBG Lactate (<or=2.0) mmol/L Sodium Potassium Chloride Carbon Dioxide Anion Gap BUN Creatinine Est GFR (CKD-EPI 2020) Glucose Calcium Total Bilirubin AST ALT Alkaline Phosphatase Troponin I C-Reactive Protein NT-Pro-B Natriuret Pep Total Protein Albumin Lipase Urine Color (Yellow) Yellow Urine Clarity (Clear) Clear Urine pH (5-8) 5.5 Ur Specific [place] (1.005-1.025) 1.015 Urine Protein (Neg-Trace) mg/dL 30 H Urine Ketones (Negative) mg/dL Negative Urine Blood (Negative) Negative Urine Nitrite (Negative) Negative Urine Bilirubin (Negative) Negative Urine Urobilinogen (Up to 0.2) mg/dL 1.0 H Ur Leukocyte Esterase (Negative) Negative Urine RBC (0-2) HPF Negative Urine WBC (0-5) HPF Negative Ur Epithelial Cells (Negative) HPF Rare Urine Crystals (Negative) HPF Negative Urine Bacteria (Negative) HPF Negative Urine Casts (Negative) LPF 0-2 Hyaline Urine Mucus (Negative) Negative Ur Culture Indicated? No Urine Glucose (Negative) mg/dL Negative Quality:SDOH Health Related Social Needs: No Data to Display PFSH All Active Problems (Updated 04/07/25 @ 15:[address]) Atrial flutter with rapid ventricular response (Acute) CHF exacerbation (Acute) Anasarca (Acute) Cirrhosis of liver (Acute) Anasarca (Acute) Atrial flutter (Acute) Venous insufficiency (Acute) Non-pressure chronic ulcer of other part of left lower leg with unspecified severity (Acute) Fatigue (Acute) Prediabetes (Acute) Heart failure with mid-range ejection fraction (HFmEF) (Acute) Hip pain, left (Acute) Abnormal liver enzymes (Acute) Bladder wall thickening (Acute) CRPS (complex regional pain syndrome) type I of lower limb (Acute) Septic arthritis of right ankle (Acute) Chronic foot pain (Acute) Positive MIKE (antinuclear antibody) (Acute) Rheumatoid factor positive (Acute) Hypertension (Chronic) Abnormal electrocardiogram (Acute) CHF (congestive heart failure) (Chronic) Hypertriglyceridemia (Acute) Erectile dysfunction (Acute) Gout (Acute) Right leg swelling (Acute) likely venous insuffi Chronic bilateral low back pain without sciatica (Acute 06/11/16) Benign prostatic hyperplasia (Acute 06/22/13) Medical History Constipation Atrial fibrillation 04/22/24 Per [facility]. -hb Abdominal pain Elevated blood pressure reading without diagnosis of hypertension Joint pain (06/22/13) Knee pain Hand joint pain (06/22/13) Back pain deteriorated ?related to fall 6 months ago Tick bite no sign of disease Right wrist pain Ankle pain, right Asthma (06/22/13) Asthma Hyperlipidemia Gout Surgical History Status post laminectomy (06/11/16) Status post carpal tunnel release Open Carpal Tunnel release Neck ortho surgery (09/17/15) LUMBAR SURGERY 12/30/16- [facility] MAURICE Family History Sister , AGE 72 Diabetes Mother , AGE 94 Hyperlipidemia Father , 64 Essential hypertension Stroke Lung cancer Brother No problems noted. Social History Smoking/Tobacco Use Status: Never Second Hand Exposure: Yes Smoking risk assessment performed?: Yes Alcohol Intake: current Alcohol Intake frequency: a few times a week Alcohol type: beer Drug use: Never Substance use type: does not use Household members: spouse and none Housing: house Pets and animals: Yes Pets and animals: dog(s) Sexually active: Yes Do you think of yourself as: straight/heterosexual Current gender identity: male What is your relationship status?: Panel score (0-1 are the most socially isolated patients): 1 Seatbelt use: always Drive intox or ride w/intox courtesy van driver: No Do you feel safe at home: Yes Do you feel safe in your relationship?: Yes Additional Social history: Lives with dog in his home in [place]. 2 kids in area who look out for him, 3rd estranged. Lost to cancer in 2022
[2025-04-07 11:44] LABS: ALT 34 U/L (16-63); Albumin 3.6 g/dL (3.4-5.0); Alkaline Phosphatase 217 U/L (46-116); Anion Gap 9.9 mmol/L (3-11); BUN 26 mg/dL (7-18); Bilirubin, Total 1.4 mg/dL (0.2-1.0); CO2 25.1 mmol/L (21.0-32.0); CREATININE 1.1 mg/dL (0.70-1.30); Calcium 9.3 mg/dL (8.5-10.1); Chloride 103 mmol/L (98-107); Estimated GFR 69.14 (mL/min/1.73m2); Glucose 110 mg/dL (74-106); NT-proBNP 5245 pg/mL (<300); Potassium 4.3 mmol/L (3.5-5.1); Sodium 138 mmol/L (136-145); Total Protein 6.9 g/dL (6.4-8.2); Troponin I 39 ng/L (<or=76)
[2025-04-07 11:45] LABS: C-Reactive Protein < 0.50 mg/dL (<or=0.5)
[2025-04-07 11:53] LABS: AST 51 U/L (15-37)
[2025-04-07 12:11] LABS: Lipase 40 U/L (<78)
[2025-04-07 12:19] LABS: Bilirubin Negative (Negative); Blood Negative (Negative); Clarity Clear (Clear); Glucose Negative (Negative); Ketones Negative (Negative); Leukocyte Esterase Negative (Negative); Nitrite Negative (Negative); Specific Gravity 1.015 (1.005-1.025); pH 5.5 (5-8)
[2025-04-07 12:19] LABS: Troponin I 39 ng/L (<or=76)
[2025-04-07] MEDS: Omnipaque 350 MG/ML 100 ML BTL 75 ML IJ (12:26)
[2025-04-07 12:28] LABS: Bacteria Negative HPF (Negative); C & S Indicated? No; Casts 0-2 Hyaline LPF (Negative); Crystals Negative HPF (Negative); Epithelial Cells Rare HPF (Negative); Mucus Negative (Negative); RBC Negative HPF (0-2); WBC Negative HPF (0-5)
--- NOTE | 2025-04-07 14:34 | W.PM.HP.N ---
Date of service: 04/07/25 Time of Service: 14:34 Assessment and Plan Assessment and plan (1) Heart failure with mid-range ejection fraction (HFmEF): Status: Acute Assessment and plan: Known HFmrEF, sent from cardiology today with significant fluid overload after not tolerating his oral bumetadine. Start with 80mg IV furosemide, consider drip if not responding well, but putting out good urine so far Cardiology note reviewed, rate may be contributing with atrial flutter, though tachycardia may also be caused by stress of CHF, see below. (2) Atrial flutter: Status: Acute Assessment and plan: As above. Cardiology considering cardioversion if not responding, will consult to follow along. Continue metoprolol and apixaban Current exam more c/w afib, which he has also had in the past. (3) Anasarca: Status: Acute Assessment and plan: Looking at his history, this appeas to be a combination of his CHF, cirrhosis, and venous insufficiency. Only 30 protein on urinalysis, but will get prot/cr urine to make sure there is not a significant renal/nephrotic component to his anasarca. IV diuresis as above. (4) Cirrhosis of liver: Status: Acute Assessment and plan: new diagnosis but signs of chronic liver disease last year that was not followed up. Based on CT c/w labs, but should have elastography as outpatient to confirm. With HTN, BMI 29, HLD, pre-DM at risk for MASLD, but never has had hepatitis screens so get these, ferritin as HH screen. He is also MIKE+ but this is not typical presentation for autoimmune hepatitis or PBC as alk phos not disproportionarily high. No new meds to suggest DILI. Consider further autoimmune work up if basic assessment not revealing. (5) Asthma: Assessment and plan: continue albuterol prn (6) Gout: Assessment and plan: continue allopurinol (7) Chronic LLQ pain: Assessment and plan: No pain now, but his has limited his tolerating diurectics. Sounds functional. CT A/P today reassuring. Will look for old colonoscopies. Continue psyllium History of Present Illness History of Present Illness Chief Complaint: swelling, SOB Narrative: 78 yo M with history of HFmrEF, atrial flutter/fibrillatoin on apixaban, HTN, PAD, asthma, chronic low back pain a/w spinal stenosis, BPH, venous insufficiency, and complex history of chronic leg pain who was sent by cardiology to the emergency room with severe edema and atrial flutter with poor rate control. He had been taking bumetanide 2mg daily for months, but was noting it was causing pain in the LLQ. He tried cutting it in half about 2 weeks ago but the pain continued, so he stopped all together at least 10 days ago. Since then his weight has increased about 15-20lbs. He has noticed his abdomen is more bloated and he had to loosen his belt, and his scrotum was quite swollen. He is also short of breath with any exertion. He has been urinating, but not very much until he was given furosemide in the ED, and since has gone several times. His LLQ pain is crampy, moderate to severe at times. He has not noticed it gettting better/worse associated with urination or BMs. No diarrhea or stool changes. No blood in urine or dysuria. No fever/chills. No cough or URI symptoms. He states he had pinching trauma to the same LLQ area years ago, but has not scar. The pain has resolved since he stopped the diuretic. Review of Systems All systems reviewed & are unremarkable except as noted in HPI and below PFSH All Active Problems (Updated 04/07/25 @ 17:42 by Aj Lowery) Atrial flutter with rapid ventricular response (Acute) CHF exacerbation (Acute) Anasarca (Acute) Cirrhosis of liver (Acute) Anasarca (Acute) Atrial flutter (Acute) Venous insufficiency (Acute) Non-pressure chronic ulcer of other part of left lower leg with unspecified severity (Acute) Fatigue (Acute) Prediabetes (Acute) Heart failure with mid-range ejection fraction (HFmEF) (Acute) Hip pain, left (Acute) Abnormal liver enzymes (Acute) Bladder wall thickening (Acute) CRPS (complex regional pain syndrome) type I of lower limb (Acute) Septic arthritis of right ankle (Acute) Chronic foot pain (Acute) Positive IMKE (antinuclear antibody) (Acute) Rheumatoid factor positive (Acute) Hypertension (Chronic) Abnormal electrocardiogram (Acute) CHF (congestive heart failure) (Chronic) Hypertriglyceridemia (Acute) Erectile dysfunction (Acute) Gout (Acute) Right leg swelling (Acute) likely venous insuffi Chronic bilateral low back pain without sciatica (Acute 06/11/16) Benign prostatic hyperplasia (Acute 06/22/13) Medical History (Updated 04/07/25 @ 17:42 by Aj Lowery) Chronic LLQ pain Constipation Atrial fibrillation 04/22/24 Per [facility]. -hb Abdominal pain Ankle pain, right Right wrist pain Elevated blood pressure reading without diagnosis of hypertension Asthma (06/22/13) Joint pain (06/22/13) Tick bite no sign of disease Back pain deteriorated ?related to fall 6 months ago Knee pain Hand joint pain (06/22/13) Asthma Hyperlipidemia Gout Surgical History Status post carpal tunnel release Status post laminectomy (06/11/16) Open Carpal Tunnel release Neck ortho surgery (09/17/15) LUMBAR SURGERY 12/30/16- [facility] Family History Sister , AGE 72 Diabetes Mother , AGE 94 Hyperlipidemia Father , 64 Essential hypertension Stroke Lung cancer Brother No problems noted. Social History (Updated 04/07/25 @ 17:34 by Aj Lowery) Smoking/Tobacco Use Status: Never Second Hand Exposure: Yes Smoking risk assessment performed?: Yes Alcohol Intake: current Alcohol Intake frequency: a few times a week Alcohol type: beer Details: states he might drinkin a 12 pack a week Drug use: Never Substance use type: does not use Household members: none Housing: house Pets and animals: Yes Pets and animals: dog(s) Sexually active: Yes Do you think of yourself as: straight/heterosexual Current gender identity: male What is your relationship status?: Panel score (0-1 are the most socially isolated patients): 0 Seatbelt use: always Drive intox or ride w/intox 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 2 kids in area who look out for him, 3rd estranged. Lost to cancer in 2022 Meds Allergies and Home Medications Allergies Allergy/AdvReac Type Severity Reaction Status Date / Time shellfish derived Allergy Severe Anaphylaxsi Verified 04/07/25 10:26 s Opioids - Morphine Analogues AdvReac Severe nausea and Verified 04/07/25 10:26 vomiting buprenorphine AdvReac Intermediate Nausea Verified 04/07/25 10:26 spironolactone AdvReac Intermediate Stomach Verified 04/07/25 10:26 pain HORSE SERUM PROTEINS Allergy Intermediate Nasal Uncoded 04/07/25 10:26 congestion Home Medications ?Medication ?Instructions ?Recorded ?Confirmed ?Type nebulizers (Mini Plus Nebulizer #1 ea 03/10/18 04/07/25 Rx misc) apixaban 5 mg tablet (Eliquis) 5 mg PO BID #180 tabs 05/03/24 04/07/25 Rx atorvastatin 40 mg tablet 40 mg PO QPM #90 tabs 05/03/24 04/07/25 Rx tamsulosin 0.4 mg capsule 0.4 mg PO HS #90 caps 05/03/24 04/07/25 Rx bumetanide 1 mg tablet 0.5 mg PO QDAY 12/06/24 04/07/25 History albuterol sulfate 90 mcg/actuation 2 puff inhalation Q6H PRN 12/08/24 04/07/25 Rx aerosol inhaler (Ventolin HFA) bronchospasm #6.7 grams allopurinol 300 mg tablet 300 mg PO DAILY #90 tabs 12/08/24 04/07/25 Rx ipratropium 0.5 mg-albuterol 3 mg 3 ml inhalation QID PRN shortness 12/08/24 04/07/25 Rx (2.5 mg base)/3 mL nebulization of breath #180 mL soln losartan 25 mg tablet 25 mg PO DAILY #90 tabs 02/17/25 04/07/25 Rx metoprolol succinate 50 mg 50 mg PO BID #180 tabs 03/24/25 04/07/25 Rx tablet,extended release 24 hr Exam Narrative Exam Narrative: GEN: Alert and oriented x 4, pleasant and cooperative, gives linear history. No acute distress at rest. HEENT: Head atraumatic. Conjunctiva clear, no icterus. PEERL, EOMI. no rhinorrhea. MMM, OP benign. Neck is supple with no masses or lymphadenopathy, trachea midline LUNGS: Normal effort at rest, but bibasilar rales on ascultation. no wheeze. CV: irregularly irregular, rate around 100 with no murmurs, gallops, or rubs. ABD: active bowel sounds, soft, moderately distended. No masses or HSM. I could not appreciate fluid wave. Mild discomfort with subrapubic palpation, no pain. EXT: no cyanosis, clubbing. 2-3+ pitting edema leo legs to thighs, scrotum/penis. Cap refill 1-2 sec in toes, warm MSK: No joint redness or swelling NEURO: CN 2-12 grossly intact. Normal movement of 4 extremities. Normal speech and coordination. No tremor SKIN: No rashes or open wounds. Leo venous stasis changes wiht thickening of skin shins. PSYCH: normal mood and affect, normal thought process Results Imaging EKG: report reviewed and image reviewed (Aflutter rate 139, left axis, no STEMI) Imaging Studies: CT A/P: 1. There is generalized relatively symmetrical anasarca over the abdomen and pelvis and extending down into the lower extremities. There is also a small amount of ascites around the liver and in the pelvis and generalized haziness of the mesentery. Also bilateral pleural effusions. Small pericardial effusion. 2. There is fluid around the gallbladder. This pericholecystic fluid, however, may just Related to the ascites as opposed to intrinsic gallbladder pathology. There are no calcified gallstones seen on the CT images. If clinically indicated further study of the gallbladder with ultrasound can be performed. 3. Cirrhotic appearing liver. No liver mass. No splenomegaly. 4. Prominent uniform thickening of the urinary bladder wall suspicious for cystitis. Pelvic ureters are not dilated. There are no distinct masses nor radiopaque calculi in the bladder lumen and there is no gas in the bladder lumen. 5. There is extensive sigmoid diverticulosis but without evidence of obvious acute diverticulitis. 6. There are bilateral hydroceles in the scrotal sac. Suspect that this is part of the generalized anasarca. Labs 04/07/25 10:24 04/07/25 10:46 Labs: Laboratory Results - last 24 hr 04/07/25 04/07/25 04/07/25 10:24 10:46 11:51 WBC 5.84 RBC 4.39 Hgb 13.9 Hct 41.4 MCV 94 MCH 31.7 MCHC 33.6 RDW 14.0 Plt Count 155 MPV 11.4 H Immature Gran % 0.5 Neutrophils % 72.1 Lymphocytes % 16.8 Monocytes % 8.7 Eosinophils % 1.2 Basophils % 0.7 Nucleated RBC % 0.0 Absolute Neutrophils 4.21 Absolute Lymphocytes 0.98 L Absolute Monocytes 0.51 Absolute Eosinophils 0.07 Absolute Basophils 0.04 VBG Lactate 1.6 Sodium Cancelled 138 Potassium Cancelled 4.3 Chloride Cancelled 103 Carbon Dioxide Cancelled 25.1 Anion Gap Cancelled 9.9 BUN Cancelled 26 H Creatinine Cancelled 1.1 Est GFR (CKD-EPI 2020) Cancelled 69.14 Glucose Cancelled 110 H Calcium Cancelled 9.3 Total Bilirubin Cancelled 1.4 H AST Cancelled 51 H ALT Cancelled 34 Alkaline Phosphatase Cancelled 217 H Troponin I Cancelled 39 39 C-Reactive Protein Cancelled < 0.50 NT-Pro-B Natriuret Pep Cancelled 5245 H Total Protein Cancelled 6.9 Albumin Cancelled 3.6 Lipase Cancelled 40 Urine Color Urine Clarity Urine pH Ur Specific [place] Urine Protein Urine Ketones Urine Blood Urine Nitrite Urine Bilirubin Urine Urobilinogen Ur Leukocyte Esterase Urine RBC Urine WBC Ur Epithelial Cells Urine Crystals Urine Bacteria Urine Casts Urine Mucus Ur Culture Indicated? Urine Glucose 04/07/25 12:09 WBC RBC Hgb Hct MCV MCH MCHC RDW Plt Count MPV Immature Gran % Neutrophils % Lymphocytes % Monocytes % Eosinophils % Basophils % Nucleated RBC % Absolute Neutrophils Absolute Lymphocytes Absolute Monocytes Absolute Eosinophils Absolute Basophils VBG Lactate Sodium Potassium Chloride Carbon Dioxide Anion Gap BUN Creatinine Est GFR (CKD-EPI 2020) Glucose Calcium Total Bilirubin AST ALT Alkaline Phosphatase Troponin I C-Reactive Protein NT-Pro-B Natriuret Pep Total Protein Albumin Lipase Urine Color Yellow Urine Clarity Clear Urine pH 5.5 Ur Specific [place] 1.015 Urine Protein 30 H Urine Ketones Negative Urine Blood Negative Urine Nitrite Negative Urine Bilirubin Negative Urine Urobilinogen 1.0 H Ur Leukocyte Esterase Negative Urine RBC Negative Urine WBC Negative Ur Epithelial Cells Rare Urine Crystals Negative Urine Bacteria Negative Urine Casts 0-2 Hyaline Urine Mucus Negative Ur Culture Indicated? No Urine Glucose Negative Last Vital Signs Temp 36.8 C 04/07/25 10:27 Pulse 107 H 04/07/25 11:40 Resp 23 04/07/25 12:01 BP 109/67 04/07/25 12:00 Pulse Ox 97 04/07/25 12:01 Time Spent Time spent with Patient: 55-74 minutes Time was spent: preparing to see the patient(eg.review tests), obtaining and/or reviewing separately otained hiistory, ordering medications,tests, procedures, referring, communicating with other health after school caregiver, indepentently interpreting results, counseling the patient and care coordination
[2025-04-07 15:08] LABS: Bilirubin, Direct 0.6 mg/dL (0.0-0.2)
[2025-04-07] MEDS: Furosemide 100 MG/10 ML VIAL 80 MG IVP (15:13)
[2025-04-07 16:27] LABS: PROTEIN 18.9 mg/dL; Prot/Crea Ur Ratio 0.17
--- NOTE | 2025-04-07 16:31 | W.PC.ACHO ---
Registration Status: Primary Language: Preferred Language: ED Information & Data Chief Complaint GenMedical 04/07/25 11:18 Triage Note Pt reports feeling unwell 04/07/25 10:27 for a couple weeks. Reports testicular swelling, lower abdominal pain, fatigue and weight gain. Reports he has gained fifteen or more pounds in the last couple weeks. Denies CP, reports some palpitations and higher HR (130s at times) and some SOB on exertion. Medical / Surgical History (Last Reviewed 04/07/25 @ 09:39 by Cherelle De La Fuente MD) Constipation Atrial fibrillation Abdominal pain Elevated blood pressure reading without diagnosis of hypertension Joint pain (06/22/13) Knee pain Hand joint pain (06/22/13) Back pain Tick bite Right wrist pain Ankle pain, right Asthma (06/22/13) Asthma Hyperlipidemia Gout (Last Reviewed 04/07/25 @ 09:39 by Cherelle De La Fuente MD) Status post laminectomy (06/11/16) Status post carpal tunnel release Open Carpal Tunnel release Neck ortho surgery (09/17/15) LUMBAR SURGERY Most Recent Vital Signs Temperature 36.8 C 04/07/25 10:27 Temperature Source Oral 04/07/25 10:27 Pulse 115 H 04/07/25 15:50 Pulse 109 H 04/07/25 15:50 Respiratory Rate 23 04/07/25 12:01 Respiratory Effort Normal 04/07/25 10:52 Respiratory Depth Normal 04/07/25 10:52 Respiratory Pattern Normal 04/07/25 10:52 Blood Pressure 127/93 H 04/07/25 15:46 Blood Pressure Mean 104 04/07/25 15:46 Blood Pressure Position Supine 04/07/25 10:27 Pulse Oximetry 99 04/07/25 15:50 Oxygen Delivery Method Room Air 04/07/25 10:27 Oxygen Flow Rate 0 04/07/25 10:27 Pain Level 3 04/07/25 10:27 Allergies shellfish derived Allergy (Severe, Verified 04/07/25 10:26) Anaphylaxsis Opioids - Morphine Analogues Adverse Reaction (Severe, Verified 04/07/25 10:26) nausea and vomiting buprenorphine Adverse Reaction (Intermediate, Verified 04/07/25 10:26) Nausea n/v after first dose spironolactone Adverse Reaction (Intermediate, Verified 04/07/25 10:26) Stomach pain HORSE SERUM PROTEINS Allergy (Intermediate, Uncoded 04/07/25 10:26) Nasal congestion Active Medications Generic Name Dose Route Start Last Admin Trade Name Cory PRN Reason Stop Dose Admin Iohexol 75 ml 04/07/25 12:30 04/07/25 12:26 Omnipaque 350 Mg/Ml 100 Ml Btl IJ 05/07/25 23:59 75 ml DIRECTED MEHREEN Administration IV IV Catheter Type [Right Saline Lock Antecubital] IV Catheter Type [Right Saline Lock Forearm] IV Catheter Gauge [Right 20 Antecubital] IV Catheter Gauge [Right 18 Forearm] Diet Orders Category Date Time Status Low Sodium [DIET] Nutrition 04/07/25 Dinner Active Diagnostics 04/07/25 04/07/25 04/07/25 Range/Units 15:18 12:09 11:51 WBC (4.4-10.8) 10^3/uL RBC (4.36-5.78) 10^6/uL Hgb (13.5-17.5) g/dL Hct (40.0-50.0) % MCV (80-95) fL MCH (27.0-33.0) pg MCHC (32.0-36.0) % RDW (11.8-14.1) % Plt Count (130-400) 10^3/uL MPV (8.0-11.0) fL Immature Gran % % Neutrophils % % Lymphocytes % % Monocytes % % Eosinophils % % Basophils % % Nucleated RBC % (0.0-0.3) % Absolute Neutrophils (1.2-6.7) 10^3/uL Absolute Lymphocytes (1.2-3.4) 10^3/uL Absolute Monocytes (0.1-0.8) 10^3/uL Absolute Eosinophils (0.0-0.7) 10^3/uL Absolute Basophils (0.0-0.2) 10^3/uL VBG Lactate (<or=2.0) mmol/L Sodium Potassium Chloride Carbon Dioxide Anion Gap BUN Creatinine Est GFR (CKD-EPI 2020) Glucose Calcium Total Bilirubin Conjugated Bilirubin 0.6 H (0.0-0.2) mg/dL AST ALT Alkaline Phosphatase Troponin I 39 C-Reactive Protein NT-Pro-B Natriuret Pep Total Protein Albumin Lipase Urine Color Yellow (Yellow) Urine Clarity Clear (Clear) Urine pH 5.5 (5-8) Ur Specific [place] 1.015 (1.005-1.025) Urine Protein 30 H (Neg-Trace) mg/dL Urine Ketones Negative (Negative) mg/dL Urine Blood Negative (Negative) Urine Nitrite Negative (Negative) Urine Bilirubin Negative (Negative) Urine Urobilinogen 1.0 H (Up to 0.2) mg/dL Ur Leukocyte Esterase Negative (Negative) Urine RBC Negative (0-2) HPF Urine WBC Negative (0-5) HPF Ur Epithelial Cells Rare (Negative) HPF Urine Crystals Negative (Negative) HPF Urine Bacteria Negative (Negative) HPF Urine Casts 0-2 Hyaline (Negative) LPF Urine Mucus Negative (Negative) Ur Culture Indicated? No Ur Random Creatinine Pending U Random Total Protein Pending U [place] Prot/Creat Ratio Pending Urine Glucose Negative (Negative) mg/dL 04/07/25 04/07/25 Range/Units 10:46 10:24 WBC 5.84 (4.4-10.8) 10^3/uL RBC 4.39 (4.36-5.78) 10^6/uL Hgb 13.9 (13.5-17.5) g/dL Hct 41.4 (40.0-50.0) % MCV 94 (80-95) fL MCH 31.7 (27.0-33.0) pg MCHC 33.6 (32.0-36.0) % RDW 14.0 (11.8-14.1) % Plt Count 155 (130-400) 10^3/uL MPV 11.4 H (8.0-11.0) fL Immature Gran % 0.5 % Neutrophils % 72.1 % Lymphocytes % 16.8 % Monocytes % 8.7 % Eosinophils % 1.2 % Basophils % 0.7 % Nucleated RBC % 0.0 (0.0-0.3) % Absolute Neutrophils 4.21 (1.2-6.7) 10^3/uL Absolute Lymphocytes 0.98 L (1.2-3.4) 10^3/uL Absolute Monocytes 0.51 (0.1-0.8) 10^3/uL Absolute Eosinophils 0.07 (0.0-0.7) 10^3/uL Absolute Basophils 0.04 (0.0-0.2) 10^3/uL VBG Lactate 1.6 (<or=2.0) mmol/L Sodium 138 Cancelled Potassium 4.3 Cancelled Chloride 103 Cancelled Carbon Dioxide 25.1 Cancelled Anion Gap 9.9 Cancelled BUN 26 H Cancelled Creatinine 1.1 Cancelled Est GFR (CKD-EPI 2020) 69.14 Cancelled Glucose 110 H Cancelled Calcium 9.3 Cancelled Total Bilirubin 1.4 H Cancelled Conjugated Bilirubin (0.0-0.2) mg/dL AST 51 H Cancelled ALT 34 Cancelled Alkaline Phosphatase 217 H Cancelled Troponin I 39 Cancelled C-Reactive Protein < 0.50 Cancelled NT-Pro-B Natriuret Pep 5245 H Cancelled Total Protein 6.9 Cancelled Albumin 3.6 Cancelled Lipase 40 Cancelled Urine Color (Yellow) Urine Clarity (Clear) Urine pH (5-8) Ur Specific [place] (1.005-1.025) Urine Protein (Neg-Trace) mg/dL Urine Ketones (Negative) mg/dL Urine Blood (Negative) Urine Nitrite (Negative) Urine Bilirubin (Negative) Urine Urobilinogen (Up to 0.2) mg/dL Ur Leukocyte Esterase (Negative) Urine RBC (0-2) HPF Urine WBC (0-5) HPF Ur Epithelial Cells (Negative) HPF Urine Crystals (Negative) HPF Urine Bacteria (Negative) HPF Urine Casts (Negative) LPF Urine Mucus (Negative) Ur Culture Indicated? Ur Random Creatinine U Random Total Protein U [place] Prot/Creat Ratio Urine Glucose (Negative) mg/dL Intake and Output - 24 Hour Total 04/07/25 10:00 thru 04/07/25 16:11 Output Total 475 Balance -475 Weight 98.566 kg Output: Urine 475 Other: # Voids 1 Falls Risk Assessment History of Falls Previous History 04/07/25 10:32 Contributing Factors Unstable,Impairments, 04/07/25 10:32 Incontinence,Medications Ambulatory Aids Uses ambulatory device + 04/07/25 10:32 Tubes/Lines With any additional score 04/07/25 10:32 Gait Evaluation W/any additional score 04/07/25 10:32 Cognition No cognitive impairment 04/07/25 10:32 Fall Total Score 97 04/07/25 10:32 Level of Risk Maximum Risk 04/07/25 10:32 Problems (Last Reviewed 04/07/25 @ 09:39 by Cherelle De La Fuente MD) Atrial flutter with rapid ventricular response (Acute) CHF exacerbation (Acute) Anasarca (Acute) Cirrhosis of liver (Acute) Anasarca (Acute) Atrial flutter (Acute) Heart failure with mid-range ejection fraction (HFmEF) (Acute) v v v v v v v v v Sending and/or Receiving Nurses: Please use comment section below to note any information pertinent to the patient hand-off not included above. Information / Comments: Received report from [facility]. Pt was sent to ED from Dr De La Fuente's office for fluid overload. Pt was found to have 3-4+ pitting edema increased fatigue and a weight gain of >15 lbs in the past week. Pt was not SOB with no difficulty breathing. Slight crackles heard at bilateral bases. Liver is palpable 3cm below ribs. Pt reported that he stopped his dieuretic x 2 weeks ago because it was causing stomach upset. Pt did not report stopping this medication to his in home aide. Pt ambulates normally independently but d/t significant swelling to bilateral legs should have a standby assist with ambulation for safety. Pt has IV access to R ac as well as R FA #20. There is some swelling to the scrotum noted which is most likely dependent from the chf exacerbation. Pt was settled to floor and oriented to room. Call hallman was left within reach Report received from:
[2025-04-07] MEDS: Tamsulosin 0.4 MG CAPCR PO (20:33)
[2025-04-07] MEDS: Apixaban 5 MG TAB PO (20:34)
[2025-04-07] MEDS: Metoprolol CR 50 MG TABCR PO (20:34)
[2025-04-07] MEDS: Atorvastatin 40 MG TAB PO (20:34)
[2025-04-08] MEDS: Acetaminophen 325 MG TAB PO (00:33)
[2025-04-08 07:04] LABS: Abs Immature Grans 0.02 10^3/uL (0.0-0.06); Absolute Basophil Count 0.04 10^3/uL (0.0-0.2); Absolute Eosinophil Count 0.08 10^3/uL (0.0-0.7); Absolute Lymphocyte Count 1.43 10^3/uL (1.2-3.4); Absolute Neutrophil Count 3.64 10^3/uL (1.2-6.7); Basophils % 0.7 %; Eosinophils % 1.4 %; HCT 40.5 % (40.0-50.0); HGB 13.5 g/dL (13.5-17.5); Immature Grans % 0.3 %; Lymphocytes % 24.2 %; MCH 31.8 pg (27.0-33.0); MCHC 33.3 % (32.0-36.0); MCV 96 fL (80-95); MPV 11.9 fL (8.0-11.0); Monocytes % 11.8 %; Neutrophils % 61.6 %; Platelet Count 147 10^3/uL (130-400); RBC 4.24 10^6/uL (4.36-5.78); RDW 14.4 % (11.8-14.1); RDW-SD 49.3 fL; WBC 5.91 10^3/uL (4.4-10.8)
[2025-04-08 07:06] VITALS: BP 104/80; PULSE 84; RESP 18; TEMP 36.3; O2SAT 92
[2025-04-08 07:32] LABS: ALT 35 U/L (16-63); AST 46 U/L (15-37); Albumin 3.4 g/dL (3.4-5.0); Alkaline Phosphatase 203 U/L (46-116); Anion Gap 9.6 mmol/L (3-11); BUN 29 mg/dL (7-18); Bilirubin, Total 1.4 mg/dL (0.2-1.0); CO2 27.4 mmol/L (21.0-32.0); CREATININE 1.3 mg/dL (0.70-1.30); Chloride 103 mmol/L (98-107); Estimated GFR 56.58 (mL/min/1.73m2); Ferritin 918 ng/mL (26-388); Glucose 93 mg/dL (74-106); Magnesium 1.9 mg/dL (1.8-2.4); Potassium 3.8 mmol/L (3.5-5.1); Sodium 140 mmol/L (136-145); Total Protein 6.4 g/dL (6.4-8.2)
[2025-04-08] MEDS: Metoprolol CR 50 MG TABCR PO ×2 (07:37→21:22)
[2025-04-08] MEDS: Losartan 25 MG TAB PO (07:37)
[2025-04-08] MEDS: Allopurinol 300 MG TAB PO (07:37)
[2025-04-08] MEDS: Apixaban 5 MG TAB PO ×2 (07:37→21:22)
[2025-04-08] MEDS: Furosemide 100 MG/10 ML VIAL 80 MG IVP ×2 (07:37→16:13)
--- NOTE | 2025-04-08 09:15 | INITIAL_ITS ---
Date of service: 04/08/25 Time of Service: 09:15 Care Management Initial Assmt Initial Assessment Reason for Hospitalization: anasarca, CHF exacerbation, atrial flutter with rvr Functional Status/Living Situation Patient Presentation: Rocco was sent to the ER from Dr. De La Fuente's (cardiology) office yesterday morning. He has been closely followed by cardiology, and the office visit found him to have worsening CHF. He was noted to have increased SOB, increased edema, 15# weight gain, and tacchycardia. Rocco had also been seen at his PCP office on 04/05 secondary to abdominal pain and bloating. He was found to have excessive fluid overload, and was started on IV lasix. Rocco was sitting up in the bed, visiting with his son, Ector, when CM met with him today. He was very pleasant, and noted to be a little bit of a jokester. Rocco stated that he feels a lot better than he did yesterday, and thinks he may have lost 20# of water weight in 24 hours. He is hoping to be discharged home tomorrow. Rocco stated that he has trouble walking long distances of standing for too long due to back pain, but denied the need for PT eval. Rocco is independent at baseline and denied the need for any community supports at this time. 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 but he appeared to be joking, his son was laughing, but he wouldn't answer otherwise) Instrumental Activities of Daily Living (ADLs): Independent Advance Directives Advance Directives: Do you have an Advance Directive: Y 11/24/16 09:04 AD On File at [facility]: Y 10/04/15 15:50 Date Asked 04/07/24 04/15/24 14:31 AD Date Reviewed 04/07/25 04/07/25 10:08 COLST On File at [facility] COLST Date Scanned Code Status Resuscitation Status Full Code Insurance Coverage/Financial Issues Insurance: Medicare Part A & B - [id number] BC/BS [facility] Care Team Visit Care Team Role Provider Type Ludwin Heaton MD Primary Care Provider [facility] STAFF PHYSICIAN [address] Emergency Provider [employer] Aj Lowery Admit Provider [facility] STAFF PHYSICIAN Attending Provider Discharge Potential Discharge Needs: PCP F/U Appt (cardiology f/u and consult) Anticipated Barriers to Discharge: None Identified Patient/Family Education Needs: Review discharge instructions, discuss Ask Me Three Transportation: Private vehicle Plan: Anticipate that Rocco will discharge home with no services once he is medically stable. He will f/u with his PCP and with cardiology and continue per his plan of care. CM will continue to follow and update the plan as needed. Social Determinants of Health Screening Social Determinants of health last assessed in clinic: 04/08/25 Will the Patient Participate in the Screening?: Yes Do you worry about having a steady place to live?: no Problems where you live: no known problems In the past 12 months, have you had to go without electric, gas, oil or water in your home?: no 1. Within the past 12 months, we worried whether our food would run out before we got money to buy more.: Don't know/refused 2. Within the past 12 months, the food we bought just didn't last and we didn't have money to get more.: Don't know/refused Has lack of transportation kept you from medical appointments or from doing things needed for daily living?: no Has anyone in your life made you feel unsafe or unsupported?: no How hard is it for you to pay for the very basics like food, housing, medical care, and heating? Would you say it is:: Not hard at all Do you want help finding or keeping work or a job?: I do not need or want help If for any reason you need help with day-to-day activities such as bathing, preparing meals, shopping, managing finances, etc., do you get the help you nee d?: I don?t need any help How often do you feel lonely or isolated from those around you?: Never Do you speak a language other than [place] at home?: No Does the patient want assistance with any of the above?: No PFSH All Active Problems (Updated 04/07/25 @ 17:42 by Aj Lowery) Atrial flutter with rapid ventricular response (Acute) CHF exacerbation (Acute) Anasarca (Acute) Cirrhosis of liver (Acute) Anasarca (Acute) Atrial flutter (Acute) Venous insufficiency (Acute) Non-pressure chronic ulcer of other part of left lower leg with unspecified severity (Acute) Fatigue (Acute) Prediabetes (Acute) Heart failure with mid-range ejection fraction (HFmEF) (Acute) Hip pain, left (Acute) Abnormal liver enzymes (Acute) Bladder wall thickening (Acute) CRPS (complex regional pain syndrome) type I of lower limb (Acute) Septic arthritis of right ankle (Acute) Chronic foot pain (Acute) Positive MIKE (antinuclear antibody) (Acute) Rheumatoid factor positive (Acute) Hypertension (Chronic) Abnormal electrocardiogram (Acute) CHF (congestive heart failure) (Chronic) Hypertriglyceridemia (Acute) Erectile dysfunction (Acute) Gout (Acute) Right leg swelling (Acute) likely venous insuffi Chronic bilateral low back pain without sciatica (Acute 06/11/16) Benign prostatic hyperplasia (Acute 06/22/13) Medical History (Updated 04/07/25 @ 17:42 by Aj Lowery) Chronic LLQ pain Constipation Atrial fibrillation 04/22/24 Per [facility]. -hb Abdominal pain Elevated blood pressure reading without diagnosis of hypertension Joint pain (06/22/13) Knee pain Hand joint pain (06/22/13) Back pain deteriorated ?related to fall 6 months ago Tick bite no sign of disease Right wrist pain Ankle pain, right Asthma (06/22/13) Asthma Hyperlipidemia Gout Surgical History Status post laminectomy (06/11/16) Status post carpal tunnel release Open Carpal Tunnel release Neck ortho surgery (09/17/15) LUMBAR SURGERY 12/30/16- [facility]HA MAURICE Family History Sister , AGE 72 Diabetes Mother , AGE 94 Hyperlipidemia Father , 64 Essential hypertension Stroke Lung cancer Brother No problems noted. Social History (Updated 04/07/25 @ 17:34 by Aj Lowery) Smoking/Tobacco Use Status: Never Second Hand Exposure: Yes Smoking risk assessment performed?: Yes Alcohol Intake: current Alcohol Intake frequency: a few times a week Alcohol type: beer Details: states he might drinkin a 12 pack a week Drug use: Never Substance use type: does not use Household members: none Housing: house Pets and animals: Yes Pets and animals: dog(s) Sexually active: Yes Do you think of yourself as: straight/heterosexual Current gender identity: male What is your relationship status?: Panel score (0-1 are the most socially isolated patients): 0 Seatbelt use: always Drive intox or ride w/intox helper/driver: No Do you feel safe at home: Yes Do you feel safe in your relationship?: Yes Additional Social history: Lives with dog in his home in [place]. 2 kids in area who look out for him, 3rd estranged. Lost to cancer in 2022
[2025-04-08 10:19] VITALS: BP 114/76; PULSE 54; RESP 16; TEMP 36.6; O2SAT 98
--- NOTE | 2025-04-08 12:47 | PGE_ITS ---
Date of Service Date of service: 04/08/25 Time of Service: 12:47 Assessment and Plan Assessment and plan (1) Heart failure with mid-range ejection fraction (HFmEF): Status: Acute Assessment and plan: Known HFmrEF, sent from cardiology on day of admission with significant fluid overload after not tolerating his oral bumetadine. Started with 80mg IV furosemide BID, working well. Cardiology note reviewed, rate may be contributing but this has improved with diuresis. He really wants to go home. He agrees to stay until tomorrow, try transitioning to 40mg torsemide, make sure he tolerates this before discharge. (2) Atrial flutter: Status: Acute Assessment and plan: As above. Also some fibrillation, PVCs. Cardiology considering cardioversion, but with improvement I don't think this is indicated. Continue metoprolol and apixaban (3) Anasarca: Status: Acute Assessment and plan: Looking at his history, this appeas to be a combination of his CHF, cirrhosis, and venous insufficiency. Prot/cr urine not c/w nephrotic syndrome, reassuring. IV diuresis as above. (4) Cirrhosis of liver: Status: Acute Assessment and plan: new diagnosis but signs of chronic liver disease last year that was not followed up. Based on CT c/w labs, but should have elastography as outpatient to confirm. With HTN, BMI 29, HLD, pre-DM at risk for MASLD, but never has had hepatitis screens, these pending. Ferritin elevated but not c/w HH. He is also MIKE+ but this is not typical presentation for autoimmune hepatitis. Will get AMA for PBC as bili and alk phos are high, though not disproportionarily high. No new meds to suggest DILI. Consider further autoimmune work up if basic assessment not revealing. He confirms today without daughter in room that he doesn't have AUD and will stop drinking alcohol. (5) Chronic LLQ pain: Assessment and plan: No pain now, but his has limited his tolerating diurectics. Sounds functional. CT A/P today reassuring. We need record of old colonoscopies. Try psyllium Subjective Subjective Patient reports: feels better, tolerating a regular diet and voiding w/o difficulty; denies nausea, vomiting or fever Interval history since last seen: Feels better. SOB imrpoved. He is urinating a lot. Bladder area feels pressure before urination more than normally. Not getting that LLQ pain now. No chest pain or palpit Exam Narrative Exam Narrative: GEN: Alert and oriented x 4. No acute distress at rest. LUNGS: Normal effort at rest, only slight basilar rales on ascultation, improved no wheeze. CV: irregularly irregular, rate around 90 with no murmurs, gallops, or rubs. ABD: active bowel sounds, soft, less distended. No masses or HSM. not tender. EXT: no cyanosis, clubbing. 2+ pitting edema leo legs to thighs Objective Last Vital Signs Temp 36.6 C 04/08/25 10:19 Pulse 54 L 04/08/25 10:19 Resp 16 04/08/25 10:19 BP 114/76 04/08/25 10:19 Pulse Ox 98 04/08/25 10:19 Laboratory Results - last 24 hr 04/07/25 04/07/25 04/08/25 11:51 12:09 06:07 WBC 5.91 RBC 4.24 L Hgb 13.5 Hct 40.5 MCV 96 H MCH 31.8 MCHC 33.3 RDW 14.4 H Plt Count 147 MPV 11.9 H Immature Gran % 0.3 Neutrophils % 61.6 Lymphocytes % 24.2 Monocytes % 11.8 Eosinophils % 1.4 Basophils % 0.7 Nucleated RBC % 0.0 Absolute Neutrophils 3.64 Absolute Lymphocytes 1.43 Absolute Monocytes 0.70 Absolute Eosinophils 0.08 Absolute Basophils 0.04 Sodium 140 Potassium 3.8 Chloride 103 Carbon Dioxide 27.4 Anion Gap 9.6 BUN 29 H Creatinine 1.3 Est GFR (CKD-EPI 2020) 56.58 Glucose 93 Calcium 9.0 Magnesium 1.9 Ferritin 918 H Total Bilirubin 1.4 H Conjugated Bilirubin 0.6 H AST 46 H ALT 35 Alkaline Phosphatase 203 H Total Protein 6.4 Albumin 3.4 Ur Random Creatinine 110.90 U Random Total Protein 18.9 U [place] Prot/Creat Ratio 0.17 PAWSS Have you Been Recently Intoxicated or Drunk Within the Last 30 days?: No Have you Ever Experienced Previous Episodes of Alcohol Withdrawal?: No Have you ever Experienced Withdrawal Seizures?: No Have you ever Experienced Delirium Tremens(DT)s?: No Have you ever undergone Alcohol Rehabilitation Treatment (i.e, inpt ot outpatient treatment programs)?: No Have you ever Experienced Blackouts?: No Have you ever Combined Alcohol with other Downers within the last 90 days?: No Have you ever Combined Alcohol with any other Substance of Abuse during the last 90 days?: No Positive Blood Alcohol level on Presentation? [PCS.BAL]: No Evidence of Increased Autonomic Activity (i.e. HR>120, tremor, sweating, agitation, nausea)?: No Result: 0 Time Spent with Patient Time Spent with Patient: 35-49 minutes Time was spent: preparing to see the patient(eg.review tests), obtaining and/or reviewing separately otained hiistory, ordering medications,tests, procedures, referring, communicating with other health healthcare corporate account director, indepentently interpreting results, counseling the patient and care coordination
--- NOTE | 2025-04-08 12:54 | PHACLINREV_ITS ---
Pharmacy Admission Review Admission Clinical Review Admission Pharmacy Review: Atrial flutter with rapid ventricular response (Acute) CHF exacerbation (Acute) Anasarca (Acute) Cirrhosis of liver (Acute) Anasarca (Acute) Atrial flutter (Acute) Heart failure with mid-range ejection fraction (HFmEF) (Acute) shellfish derived Allergy (Severe, Verified 04/07/25 10:26) Anaphylaxsis Opioids - Morphine Analogues Adverse Reaction (Severe, Verified 04/07/25 10:26) nausea and vomiting buprenorphine Adverse Reaction (Intermediate, Verified 04/07/25 10:26) Nausea spironolactone Adverse Reaction (Intermediate, Verified 04/07/25 10:26) Stomach pain HORSE SERUM PROTEINS Allergy (Intermediate, Uncoded 04/07/25 10:26) Nasal congestion Resuscitation Status Full Code Height 6 ft 1 in Weight 93 kg Comments Comments/Follow Ups: Watch for addition of any QTc prolonging meds. Possible di scharge tomorrow per progress note. Pharmacy Admission Review Renal Dosing Renal Dosing: BUN 29 mg/dL (7-18) H 04/08/25 06:07 Creatinine 1.3 mg/dL (0.70-1.30) 04/08/25 06:07 Medications needing adjustments: Reviewed (CrCl 62 mL/min, BUN slightly increased from 26) List of meds needing interventions: Current medications are okay Anticoagulation Anticoagulation: Hgb 13.5 g/dL (13.5-17.5) 04/08/25 06:07 Hct 40.5 % (40.0-50.0) 04/08/25 06:07 Plt Count 147 10^3/uL (130-400) 04/08/25 06:07 Creatinine 1.3 mg/dL (0.70-1.30) 04/08/25 06:07 DVT Prophylaxis: Reviewed Medications: Apixaban (5mg PO BID) Relevant Labs Relevant Labs: Sodium 140 mmol/L (136-145) 04/08/25 06:07 Potassium 3.8 mmol/L (3.5-5.1) 04/08/25 06:07 Chloride 103 mmol/L (98-107) 04/08/25 06:07 Magnesium 1.9 mg/dL (1.8-2.4) 04/08/25 06:07 C-Reactive Protein < 0.50 mg/dL (<or=0.5) 04/07/25 10:46 Electrolytes, C-Reactive P, ESR: Reviewed (AST decreased from 51 to 46) Cardiac Review Cardiac Review: Troponin I 39 ng/L (<or=76) 04/07/25 11:51 NT-Pro-B Natriuret Pep 5245 pg/mL (<300) H 04/07/25 10:46 BP, HR, EF%: Reviewed (BP WNL, HR 54) List meds needing interventions: Has orders for furosemide 80mg IVP BID (changing to PO torsemide tomorrow), losartan 25mg daily and metoprolol XL 50mg BID QTc Review QTc: Reviewed (519 from 04/07/25) List meds needing interventions: Current medications are okay, watch for addition of any QTc prolonging meds IV to PO Switch IV Medications: Reviewed (furosemide - stop time tonight with PO torsemide order starting tomorrow morning) Home Meds Home Med List reviewed: Reviewed Relevent Home Meds Not ordered & why?: bumetanide (has order for IV furosemide and PO torsemide) Current Meds Current Medication Order Review: Intervened Comments: Added IV admission order set Comments Comments/Follow Ups: Watch for addition of any QTc prolonging meds. Possible discharge tomorrow per progress note.
[2025-04-08 14:01] VITALS: BP 102/56; PULSE 68; RESP 16; TEMP 36.3; O2SAT 94
[2025-04-08] MEDS: Normal Saline Flush 10 ML SYR IVP ×2 (16:14→21:23)
[2025-04-08] MEDS: Tamsulosin 0.4 MG CAPCR PO (21:22)
[2025-04-08] MEDS: Atorvastatin 40 MG TAB PO (21:22)
[2025-04-08] MEDS: Psyllium PKT 1 EACH PO (21:22)
[2025-04-08 23:17] VITALS: BP 110/83; PULSE 110; RESP 20; TEMP 36.7; O2SAT 97
[2025-04-09 03:16] VITALS: BP 112/80; PULSE 93; RESP 19; TEMP 36.4; O2SAT 92
[2025-04-09 06:50] LABS: Anion Gap 8.4 mmol/L (3-11); BUN 31 mg/dL (7-18); CO2 30.6 mmol/L (21.0-32.0); CREATININE 1.2 mg/dL (0.70-1.30); Calcium 9.2 mg/dL (8.5-10.1); Chloride 104 mmol/L (98-107); Estimated GFR 62.29 (mL/min/1.73m2); Glucose 96 mg/dL (74-106); Magnesium 1.8 mg/dL (1.8-2.4); Potassium 3.5 mmol/L (3.5-5.1); Sodium 143 mmol/L (136-145)
[2025-04-09 07:27] VITALS: BP 123/93; PULSE 97; RESP 18; TEMP 36.5; O2SAT 98
[2025-04-09] MEDS: Allopurinol 300 MG TAB PO (07:38)
[2025-04-09] MEDS: Apixaban 5 MG TAB PO (07:39)
[2025-04-09] MEDS: Losartan 25 MG TAB PO (07:39)
[2025-04-09] MEDS: Metoprolol CR 50 MG TABCR PO (07:39)
[2025-04-09] MEDS: Normal Saline Flush 10 ML SYR IVP (07:40)
[2025-04-09] MEDS: Torsemide 20 MG TAB 40 MG PO (07:40)
[2025-04-09] MEDS: Psyllium PKT 1 EACH PO (07:40)
[2025-04-09 11:20] VITALS: BP 109/72; PULSE 71; RESP 18; TEMP 36.8; O2SAT 98
--- NOTE | 2025-04-09 14:20 | W.PM.DS.N ---
Date of service: 04/09/25 Time of Service: 14:20 DS: Diagnosis Discharge Diagnosis (1) Heart failure with mid-range ejection fraction (HFmEF): Status: Acute (2) Atrial flutter: Status: Acute (3) Anasarca: Status: Acute (4) Cirrhosis of liver: Status: Acute (5) Chronic LLQ pain: Discharge Plan Disposition Patient Disposition: Home Condition: Good Discharge Details Reason For Visit: anasarca, HFmrEF Admit Date/Time: 04/07/25 14:20 Admit Provider: Aj Lowery Attending Provider: Aj Lowery Primary Care Provider: Ludwin Heaton Hospital Course Hospital Course: 78 yo M with history of HFmrEF, atrial flutter/fibrillatoin on apixaban, HTN, PAD, asthma, chronic low back pain a/w spinal stenosis, BPH, venous insufficiency, and complex history of chronic leg pain who was sent by cardiology to the emergency room with severe edema and atrial flutter with poor rate control after he stopped his budesonide for 2 weeks. He was admitted and given IV furosemide for diuresis and responded well. His weight was down 7kg in 2 days. He was transitioned to a dose of torsemide that was roughly equivalent to the 2mg budesonide, which is 40mg torsemide. He was given this the morning of discharge and continued to diurese well without adverse side effects. CT on admission showed cirrhotic liver and anasarca with small ascites and pleural/pericardial effusions. Cirrhosis diagnosis was consistent with his labs goign back at least a year that have shown elevated AST and borderline low platelets. There was not splenomegaly or clear portal hypertension on CT. He should follow cirrhosis precautions including not eating and avoiding NSAIDs, limiting acetaminophen to 2grams/day. He should have hepatology evaluation including fibroscan. Hepatitis screens were sent. Ferritin was elevated but not high enough to be hemachromatosis. Due to elevated bilirubin and known positive MIKE, and anti-smooth muscle antibody was sent to assess for primary biliary sclerosis, which is a treatable cause of cirrhosis. If he has portal HTN on fibroscan, consider changing metoprolol to carvedilol. If cirrhosis confirmed, he will need q6mo liver cancer screens. His urine protein/cr was not consistent with nephrotic syndrome. He has has frequent lower abdominal pain, including with taking budesonide. CT did show bladder thickening and diverticulosis but no causes for the pain. He was started on psyllium to help regulate the bowels to see if this helps. PCP Follow up: Visit in 1 week with CMP/Mg labs prior Follow up on viral hepatitis and anti smooth muscle antibody screens. Follow up on hepatology/fibroscan referal Home Meds and New Rx's Prescriptions: New Metamucil Sugar-Free (aspart) 3.4 gram/5.8 gram Powder 3.4 g PO BID Qty: 100 0RF torsemide 20 mg tablet 40 mg PO QAM Qty: 60 0RF Continued albuterol sulfate [Ventolin HFA] 90 mcg/actuation HFA aerosol inhaler 2 puff IH Q6H PRN (Reason: bronchospasm) Qty: 6.7 5RF allopurinol 300 mg tablet 300 mg PO DAILY Qty: 90 3RF ipratropium-albuterol 0.5 mg-3 mg(2.5 mg base)/3 mL solution for nebulization 3 ml IH QID PRN (Reason: shortness of breath) Qty: 180 11RF metoprolol succinate 50 mg tablet extended release 24 hr 50 mg PO BID Qty: 180 3RF (DME) nebulizers [Mini Plus Nebulizer] 1 EACH misc 1 ea Miscellaneous QID Qty: 1 0RF atorvastatin 40 mg tablet 40 mg PO QPM Qty: 90 3RF tamsulosin 0.4 mg capsule 0.4 mg PO HS Qty: 90 3RF Eliquis 5 mg tablet 5 mg PO BID Qty: 180 3RF losartan 25 mg tablet 25 mg PO DAILY Qty: 90 3RF Discontinued bumetanide 1 mg tablet 0.5 mg PO QDAY Patient Comments: 12/06/24 takes 0.5 mg daily RH Discharge Instructions Instructions: Cirrhosis, Heart Failure, Adult (DC) Additional Instructions: Start the new water pill torsemide instead of the bumetanide. Try taking the psyllium to see if it decreases bowel discomfort. You have cirrhosis, which is scarring of the liver. You should avoid all alcohol and other substances and medications that can be toxic to your liver. You can take up to 2000mg of acetaminophen (Tylenol) a day but should avoid ibuprofen, naproxen, or other NSAID medications. You should see the liver specialist. Referrals: Cherelle Kang [ NON-[facility] STAFF PHYSICIAN] - (new diagnosis cirrhosis. History of daily EtOH but <3/day. H/o positive MIKE. Ferritin not c/w HH. Rescreening for hepatitis and ASMA sent (he has mild bilirubin elevation). Please do fibroscan to confirm and guide work up if labs to this point negative. ) Activity:: Activity as Tolerated Equipment/Supplies:: No Equipment Needed Diet:: As Tolerated Discharge Orders Discharge Orders: Discharge Order (Routine); Ordered 04/09/25 Ordered By: Aj Lowery DS: Summary Time Spent with Patient providing and/or coordinating discharge services: Greater than 30 minutes Status at Discharge Functional status at discharge: independent ambulation Overall status at discharge: patient is progressing back to baseline Mental Status: mental status grossly normal Speech and Movement: speech and movement normal Mood: congruent mood Affect: normal affect Quality:SDOH Health Related Social Needs: No Data to Display Exam Narrative Exam Narrative: GEN: Alert and oriented x 4. No acute distress at rest. LUNGS: Normal effort at rest, CTAB CV: irregularly irregular, rate around 80 with no murmurs, gallops, or rubs. ABD: active bowel sounds, soft, less distended. No masses or HSM. not tender. EXT: no cyanosis, clubbing. 1-2+ pitting edema leo legs. Venous stasis changes but no open wounds Psych Mental Status: mental status grossly normal Speech and Movement: speech and movement normal Mood: congruent mood Affect: normal affect DS: Data Vitals/I&O Vitals and I&O: Vital Signs Temperature 36.8 C 04/09/25 11:20 Temperature Source Temporal Artery Scan 04/09/25 11:20 Pulse 71 04/09/25 11:20 Pulse 109 H 04/07/25 15:50 Respiratory Rate 18 04/09/25 11:20 Respiratory Effort Normal 04/07/25 16:50 Respiratory Depth Normal 04/07/25 16:50 Respiratory Pattern Normal 04/07/25 16:50 Blood Pressure 109/72 04/09/25 11:20 Blood Pressure Mean 84 04/09/25 11:20 Blood Pressure Position Supine 04/07/25 10:27 Pulse Oximetry 98 04/09/25 11:20 Oxygen Delivery Method Room Air 04/09/25 11:20 Oxygen Flow Rate 0 04/09/25 11:20 Pain Level 2 04/09/25 11:20 Comment rn notified 04/09/25 11:20 Intake & Output 04/08/25 04/09/25 04/09/25 23:59 11:59 23:59 Intake Total 470 / 900 240 / 460 220 / 460 Output Total 2150 / 3650 2245 / 2470 225 / 2470 Balance -1680 / -2750 -2004 - Weight 91.5 kg Intake: IV Oral 460 / 880 240 / 460 220 / 460 Output: Urine 2150 / 3650 2245 / 2470 225 / 2470 Other: Urine Color Straw Yellow Yellow Urine Appearance Clear Clear Clear Urine Odor Strong Strong Comment Pt voids ind. in urinal Pt voids ind. in urinal. Data Completed and Pending Labs on day of discharge: Labs from last 24 hours 04/09/25 05:49 Sodium 143 Potassium 3.5 Chloride 104 Carbon Dioxide 30.6 Anion Gap 8.4 BUN 31 H Creatinine 1.2 Est GFR (CKD-EPI 2020) 62.29 Glucose 96 Calcium 9.2 Magnesium 1.8 Anti-Smooth Muscle Ab Pending [facility] All Active Problems (Updated 04/07/25 @ 17:42 by Aj Lowery) Atrial flutter with rapid ventricular response (Acute) CHF exacerbation (Acute) Anasarca (Acute) Cirrhosis of liver (Acute) Anasarca (Acute) Atrial flutter (Acute) Venous insufficiency (Acute) Non-pressure chronic ulcer of other part of left lower leg with unspecified severity (Acute) Fatigue (Acute) Prediabetes (Acute) Heart failure with mid-range ejection fraction (HFmEF) (Acute) Hip pain, left (Acute) Abnormal liver enzymes (Acute) Bladder wall thickening (Acute) CRPS (complex regional pain syndrome) type I of lower limb (Acute) Septic arthritis of right ankle (Acute) Chronic foot pain (Acute) Positive MIKE (antinuclear antibody) (Acute) Rheumatoid factor positive (Acute) Hypertension (Chronic) Abnormal electrocardiogram (Acute) CHF (congestive heart failure) (Chronic) Hypertriglyceridemia (Acute) Erectile dysfunction (Acute) Gout (Acute) Right leg swelling (Acute) likely venous insuffi Chronic bilateral low back pain without sciatica (Acute 06/11/16) Benign prostatic hyperplasia (Acute 06/22/13) Medical History (Updated 04/07/25 @ 17:42 by Aj Lowery) Chronic LLQ pain Constipation Atrial fibrillation 04/22/24 Per Blanche/[facility]. -hb Abdominal pain Ankle pain, right Right wrist pain Elevated blood pressure reading without diagnosis of hypertension Asthma (06/22/13) Joint pain (06/22/13) Tick bite no sign of disease Back pain deteriorated ?related to fall 6 months ago Knee pain Hand joint pain (06/22/13) Asthma Hyperlipidemia Gout Surgical History Status post carpal tunnel release Status post laminectomy (06/11/16) Open Carpal Tunnel release Neck ortho surgery (09/17/15) LUMBAR SURGERY 12/30/16- RADHA MAURICE Family History Sister , AGE 72 Diabetes Mother , AGE 94 Hyperlipidemia Father , 64 Essential hypertension Stroke Lung cancer Brother No problems noted. Social History (Updated 04/07/25 @ 17:34 by Aj Lowery) Smoking/Tobacco Use Status: Never Second Hand Exposure: Yes Smoking risk assessment performed?: Yes Alcohol Intake: current Alcohol Intake frequency: a few times a week Alcohol type: beer Details: states he might drinkin a 12 pack a week Drug use: Never Substance use type: does not use Household members: none Housing: house Pets and animals: Yes Pets and animals: dog(s) Sexually active: Yes Do you think of yourself as: straight/heterosexual Current gender identity: male What is your relationship status?: Panel score (0-1 are the most socially isolated patients): 0 Seatbelt use: always Drive 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 2 kids in area who look out for him, 3rd estranged. Lost to cancer in 2022 Time Spent with Patient Time Spent with Patient: <45 minutes Time was spent: preparing to see the patient(eg.review tests), obtaining and/or reviewing separately otained hiistory, ordering medications,tests, procedures, referring, communicating with other health healthcare network pricing consultant, indepentently interpreting results, counseling the patient and care coordination
--- NOTE | 2025-04-09 14:52 | CMDISCH_ITS ---
Date of service: 04/09/25 Time of Service: 14:52 LACE Index Scoring Tool Questions: Length of Stay (in days): 2 Was the patient admitted via the E.D.?: Yes Comorbidities: Congestive Heart Failure, Chronic Pulmonary Disease and Mild Liver/Renal Disease E.D. Visits: 1 Answers: Total Score: 11 Risk of Readmission: High Risk Care Management Discharge Plan Reason for Hospitalization: heart failure, anasarca Discharge Plan: Rocco was discharged home this afternoon with no new services. He will f/u with his PCP, and [place] [facility] [place]u [place] new dx of cirrhosis. Rocco will continue per his plan of care. Rocco drove himself home, as his car had been at the cardiology office. Patient/Family Education Needs: Review of discharge instructions, activity, limitations, and discuss ask me 3. SDOH Health Related Social Needs: No Data to Display
[2025-04-10 10:15] LABS: HBs Antibody, Quant <3.1 mIU/mL (See Note); Hep B Surface Ab Negative (See Note); Hepatitis B Core Antibody Negative (Negative); Hepatitis B Surface Antigen Negative (Negative)
[2025-04-10 10:38] LABS: Hepatitis C Ab w Rflx HCV PCR Negative (Negative)
[2025-04-11 11:46] LABS: Smooth Muscle Ab Screen Negative (Negative)
== END 2025-04-09 14:51 | disposition home or self-care (01) | DRG 291 ==
LOC: ER 15:06 → MS 04-08 07:07
PROVIDERS: Admitting Provider Family Medicine; Emergency Provider Physician Assistant; PCP Family Medicine; Responsible Provider Family Medicine; Visit Provider Family Medicine
DX: I11.0 Hypertensive heart disease with heart failure (principal); I50.23 Acute on chronic systolic (congestive) heart failure; I48.92 Unspecified atrial flutter; R60.1 Generalized edema; K74.60 Unspecified cirrhosis of liver; J45.909 Unspecified asthma, uncomplicated; I44.7 Left bundle-branch block, unspecified; R73.03 Prediabetes; I48.91 Unspecified atrial fibrillation; E78.1 Pure hyperglyceridemia; N40.0 Benign prostatic hyperplasia without lower urinary tract symptoms; I73.9 Peripheral vascular disease, unspecified; M48.061 Spinal stenosis, lumbar region without neurogenic claudication; I87.2 Venous insufficiency (chronic) (peripheral); R10.32 Left lower quadrant pain; Z79.01 Long term (current) use of anticoagulants
CPT/HCPCS: 00123; 36415; 51798; 80048; 80053; 83690; 86704; 86706; 86803; 87340; 93005; 96374; 99214; 99285; 74177; 81003; 81015; 82248; 82565; 82728; 83605; 83735; 83880; 84156; 84484; 85025; 86140; 86255; 93010; 99223; 99232; 99239; J1938; J3490

== ENCOUNTER 2025-04-25 03:09 | Outpatient (CLI) | payer MEDICARE, BC, SELFPAY ==
[2025-04-25 12:08] LABS: Potassium 3.6 mmol/L (3.5-5.1)
[2025-04-28 09:03] LABS: ALT 63 U/L (7-55); ActiTest Grade A2-A3; ActiTest Interpretation significant activity; ActiTest Score 0.61; Alpha-2-Macroglobulin 302 mg/dL (100 - 280); Apoliprotein A1 95 mg/dL (>=120); Bilirubin, Total 1.3 mg/dL (0.0 - 1.2); FibroTest Interpretation severe fibrosis; FibroTest Score 0.93; FibroTest Stage F4; GGT 378 U/L (8 - 61); Haptoglobin 174 mg/dL (30 - 200)
== END 2025-04-25 03:10 | disposition home or self-care (01) ==
LOC: LOS 03:09
PROVIDERS: PCP Family Medicine; Visit Provider Family Medicine
DX: K74.60 Unspecified cirrhosis of liver (principal); I10 Essential (primary) hypertension
CPT/HCPCS: 36415; 81596; 84132

== ENCOUNTER 2025-05-09 09:10 | Outpatient (CLI) | payer MEDICARE, BC, SELFPAY ==
--- NOTE | 2025-05-09 09:00 | RT.EKG_ITS ---
APPROVED REPORT Exam: Resting ECG Reason for Exam: PAF Patient Location: O HR:93 bpm ECG Measurements Heart Rate 93 AXIS AR 189 P 78 QRSd 139 QRS -39 QT 430 T 165 QTc 535 Conclusion Probable sinus rhythm...normal P axis, V-rate 50- 99 Left bundle branch block...QRSd>120, broad/notched R Baseline wander in lead(s) V1 Artifact
== END 2025-05-09 09:11 | disposition home or self-care (01) ==
LOC: DI.CARD 09:17
PROVIDERS: PCP Family Medicine; Visit Provider Internal Medicine Cardiovascular Disease
DX: R94.31 Abnormal electrocardiogram [ECG] [EKG] (principal); I48.92 Unspecified atrial flutter; I48.0 Paroxysmal atrial fibrillation; I44.7 Left bundle-branch block, unspecified
CPT/HCPCS: 93010

== ENCOUNTER → 2025-05-09 09:43 | Outpatient (BNVA) | payer MEDICARE, BC, SELFPAY | PROVIDERS: PCP Family Medicine; Referring Provider Family Medicine; Visit Provider Internal Medicine Cardiovascular Disease | DX: I50.42 Chronic combined systolic (congestive) and diastolic (congestive) heart failure (principal); I48.92 Unspecified atrial flutter; I48.0 Paroxysmal atrial fibrillation; R94.31 Abnormal electrocardiogram [ECG] [EKG]; Z79.01 Long term (current) use of anticoagulants | CPT/HCPCS: 99214; 93005 ==

== ENCOUNTER → 2025-07-11 09:43 | Outpatient (BNVA) | payer MEDICARE, BC, SELFPAY | PROVIDERS: PCP Family Medicine; Referring Provider Family Medicine; Visit Provider Internal Medicine Cardiovascular Disease | DX: I48.92 Unspecified atrial flutter (principal) | CPT/HCPCS: 99213 ==

== ENCOUNTER 2025-07-23 16:12 | Emergency (ER) | payer MEDICARE, BC, SELFPAY ==
[2025-07-23 16:16] VITALS: BP 127/79; PULSE 86; RESP 18; TEMP 36.4; O2SAT 100
--- NOTE | 2025-07-23 16:50 | W.ED.GENAD ---
Discharge Plan Disposition Patient Disposition: Home Condition: Good Discharge Details Clinical Impression: Low back pain Primary Care Provider: Ludwin Heaton ED Provider: Sameer Hoffman Home Meds and New Rx's Prescriptions: New cyclobenzaprine 10 mg tablet 10 mg PO TID PRNQty: 14 0RF methylprednisolone [Medrol (Horacio)] 4 mg tablets,dose pack See Rx Instructions .ROUTE .COMPLEX Qty: 21 0RF Rx Instructions: for 6 days No Action albuterol sulfate [Ventolin HFA] 90 mcg/actuation HFA aerosol inhaler 2 puff IH Q6H PRN (Reason: bronchospasm) Qty: 6.7 5RF allopurinol 300 mg tablet 300 mg PO DAILY Qty: 90 3RF ipratropium-albuterol 0.5 mg-3 mg(2.5 mg base)/3 mL solution for nebulization 3 ml IH QID PRN (Reason: shortness of breath) Qty: 180 11RF metoprolol succinate 50 mg tablet extended release 24 hr 50 mg PO BID Qty: 180 3RF (DME) nebulizers [Mini Plus Nebulizer] 1 EACH misc 1 ea Miscellaneous QID Qty: 1 0RF Eliquis 5 mg tablet 5 mg PO BID Qty: 180 3RF tamsulosin 0.4 mg capsule 0.4 mg PO HS Qty: 90 3RF atorvastatin 40 mg tablet 40 mg PO QPM Qty: 90 3RF torsemide 20 mg tablet 20 mg PO QAM Qty: 90 2RF Rx Instructions: 05/24/25: See task. Change to torsemide once daily/AM. -hb Discharge Instructions Instructions: Low Back Pain ED Additional Instructions: You were seen in the emergency department for low back injury. We performed labs that were mostly unremarkable other than a slightly low potassium and we had you drink some potassium here. You can follow-up with your primary to have this rechecked. Your low back pain is likely due to a muscle strain or due to your chronic low back pain. You can take Tylenol and ibuprofen per bottle directions for pain or discomfort. Do not take Tylenol and ibuprofen for greater than 5 days without consulting your primary care doctor. If the Tylenol and ibuprofen are not working for your discomfort you can stop taking them and take the prescribed Medrol Dosepak which is a steroid to help with the pain. I am giving you a muscle relaxer called cyclobenzaprine/Flexeril to help with the pain or discomfort as well but do not drive or operate machinery if you were can to take this medication as it can make you sleepy. If you develop worsening pain, weakness in your legs, loss of control of your bowel or bladder, or if you have any other concerns then please return to the emergency department. Otherwise follow-up with your primary care doctor or previous back surgeon. In regards to your constipation you can take [id number] MiraLAX to help treat this. Referrals: Ludwin Heaton MD [Primary Care Provider, Medicine] - 2 weeks HPI General Mode of arrival: ambulatory. Date/Time Provider Initiated Documentation: 07/23/25 16:16. Limitations to Documentation: no limitations. Information obtained by: patient. HPI Narrative: This is a 80-year-old male presenting with low back pain. Says that he was on the ground trying to get something underneath his couch. Stood up and had pain in his low back. No weakness to the legs. Still able to walk. He has had multiple low back surgeries but not in years. No fevers or chills. No bowel or bladder incontinence or retention. Says that he was constipated and took some stool softeners and did poop his pants a little bit but not since and now continent of stool. No numbness tingling or weakness in the legs. Denying any other complaints. Related Data Home Medications ?Medication ?Instructions ?Recorded ?Confirmed nebulizers (Mini Plus Nebulizer #1 e[place] [facility] al[place]erol sulfate 90 mcg/actuation 2 puff inhalation Q6H PRN 12/08/24 07/23/25 aerosol inhaler (Ventolin HFA) bronchospasm #6.7 grams allopurinol 300 mg tablet 300 mg PO DAILY #90 tabs 12/08/24 07/23/25 ipratropium 0.5 mg-albuterol 3 mg 3 ml inhalation QID PRN shortness 12/08/24 07/23/25 (2.5 mg base)/3 mL nebulization of breath #180 mL soln metoprolol succinate 50 mg 50 mg PO BID #180 tabs 03/24/25 07/23/25 tablet,extended release 24 hr apixaban 5 mg tablet (Eliquis) 5 mg PO BID #180 tabs 05/01/25 07/23/25 atorvastatin 40 mg tablet 40 mg PO QPM #90 tabs 05/01/25 07/23/25 tamsulosin 0.4 mg capsule 0.4 mg PO HS #90 caps 05/01/25 07/23/25 torsemide 20 mg tablet 20 mg PO QAM #90 tabs 05/24/25 07/23/25 cyclobenzaprine 10 mg tablet 10 mg PO TID PRN #14 tabs 07/23/25 methylprednisolone 4 mg tablets in See Rx Instructions PO .COMPLEX 07/23/25 a dose pack (Medrol (Horacio)) #21 tabs Previous Rx's ?Medication ?Instructions ?Recorded nebulizers (Mini Plus Nebulizer #[place] [facility] albuterol sulfate 90 mcg/actuation 2 puff inhalation Q6H PRN 12/08/24 aerosol inhaler (Ventolin HFA) bronchospasm #6.7 grams allopurinol 300 mg tablet 300 mg PO DAILY #90 tabs 12/08/24 ipratropium 0.5 mg-albuterol 3 mg 3 ml inhalation QID PRN shortness 12/08/24 (2.5 mg base)/3 mL nebulization of breath #180 mL soln metoprolol succinate 50 mg 50 mg PO BID #180 tabs 03/24/25 tablet,extended release 24 hr apixaban 5 mg tablet (Eliquis) 5 mg PO BID #180 tabs 05/01/25 atorvastatin 40 mg tablet 40 mg PO QPM #90 tabs 05/01/25 tamsulosin 0.4 mg capsule 0.4 mg PO HS #90 caps 05/01/25 torsemide 20 mg tablet 20 mg PO QAM #90 tabs 05/24/25 cyclobenzaprine 10 mg tablet 10 mg PO TID PRN #14 tabs 07/23/25 methylprednisolone 4 mg tablets in See Rx Instructions PO .COMPLEX 07/23/25 a dose pack (Medrol (Horacio)) #21 tabs Allergies Allergy/AdvReac Type Severity Reaction Status Date / Time shellfish derived Allergy Severe Anaphylaxsi Verified 07/23/25 16:22 s Opioids - Morphine Analogues AdvReac Severe nausea and Verified 07/23/25 16:22 vomiting buprenorphine AdvReac Intermediate Nausea Verified 07/23/25 16:22 spironolactone AdvReac Intermediate Stomach Verified 07/23/25 16:22 pain HORSE SERUM PROTEINS Allergy Intermediate Nasal Uncoded 07/23/25 16:22 congestion General Stated Complaint: Nk/Back Pain KASSIDY: 3 Review of Systems Constitutional Constitutional: Denies chills, Denies fever(s) and Denies headache(s) Eyes Eyes: Denies change in vision ENT Ears, Nose, Mouth, and Throat: Denies headache(s) and Denies odynophagia Cardiovascular Cardiovascular: Denies chest pain and Denies dyspnea Respiratory Respiratory: Denies dyspnea Gastrointestinal Gastrointestinal: Denies abdominal pain, Reports constipation, Denies diarrhea, Denies nausea, Denies odynophagia and Denies vomiting Genitourinary Genitourinary: Denies dysuria Musculoskeletal Musculoskeletal: Reports back pain and Denies myalgias Integumentary/Breasts Skin/Breast: Denies changing lesions Neurologic Neurologic: Denies behavioral changes and Denies headache(s) Psychiatric Psychiatric: Denies behavioral changes Endocrine Endocrine: Denies heat intolerance Hematologic/Lymphatic Hematologic/Lymphatic: Denies lymphadenopathy Exam Const General: cooperative Nutritional Appearance: average body habitus Orientation: alert, awake and oriented x3 HENMT Head: normal to inspection Ears: external ears normal Mouth: moist mucous membranes Eyes Pupils: PERRL EOM: EOM intact bilaterally and No nystagmus Neck Neck: full ROM and no tracheal deviation Chest Chest: normal inspection of the chest Resp Auscultation: clear to auscultation bilaterally Cardio Rate: regular rate Rhythm: regular rhythm GI Inspection: normal to inspection Palpation: soft, no guarding, not rigid and nontender Back/Spine/Pelvis Back: No no CVA tenderness Thoracic/Lumbar Spine: thoracic and lumbar spine normal to inspection Other: Reporting pain in the lower lumbar spine but no tenderness on exam. No other spinal tenderness. Otherwise unremarkable examination of the cervical, thoracic, and lumbar spine. Circulation sensation and motor intact in the bilateral lower extremities. He has chronic peripheral vascular disease but he has dopplerable DP and PT pulses bilaterally. He has no foot pain. Skin General skin exam: no rashes or lesions noted Neuro General: patient alert, patient awake and patient oriented x3 Cranial Nerves: CN's II-XI intact bilaterally, PERRL and no nystagmus Cognition: normal cognition Motor: muscle tone normal throughout and strength 5/5 throughout Sensory Exam: no sensory deficits noted Extrem General: normal to inspection Course Vital Signs Vital signs: Vital Signs Temperature 36.4 C 07/23/25 16:16 Pulse 86 07/23/25 16:16 Respiratory Rate 18 07/23/25 16:16 Blood Pressure 127/79 07/23/25 16:16 Pulse Oximetry 100 07/23/25 16:16 Temperature 36.4 C 07/23/25 16:16 Temperature Source Oral 07/23/25 16:16 Pulse 86 07/23/25 16:16 Respiratory Rate 18 07/23/25 16:16 Blood Pressure 127/79 07/23/25 16:16 Blood Pressure Position Supine 07/23/25 16:16 Pulse Oximetry 100 07/23/25 16:16 Oxygen Delivery Method Room Air 07/23/25 16:16 Oxygen Flow Rate 0 07/23/25 16:16 Pain Level 6 07/23/25 16:16 Medical Decision Making This is a 72-year-old male who presents with low back pain. No history of any mechanism to suggest fractures and normal for CT imaging. No red flag symptoms for cord compression or spinal epidural abscess so no role for emergent MRI. Says that when the pain initially started when he was standing up he did have a small amount of a bowel movement because he has been very constipated and took some stool softeners. Now continent of stool and has actually tried to go to the bathroom multiple times and reporting he can poop some but still feels constipated. Do not think that this is related to cauda equina and again no role for emergent MRI. Strength and sensation intact in the bilateral lower extremities. Sent basic labs that were unremarkable other than some hypokalemia and told him to supplement this at home before giving him some oral potassium here. He can follow-up with his primary. Will discharge with return precautions. Medical Records Medical records reviewed: Yes I reviewed the patient's medical records. Lab Data Lab results reviewed: Yes I reviewed the patient's lab results. Lab results narrative: Labs with hypokalemia but otherwise unremarkable PFSH All Active Problems Low back pain (Acute) CHF exacerbation (Acute) Cirrhosis of liver (Acute) Atrial flutter (Acute) Venous insufficiency (Acute) Non-pressure chronic ulcer of other part of left lower leg with unspecified severity (Acute) Fatigue (Acute) Prediabetes (Acute) Heart failure with mid-range ejection fraction (HFmEF) (Acute) Hip pain, left (Acute) Abnormal liver enzymes (Acute) Bladder wall thickening (Acute) CRPS (complex regional pain syndrome) type I of lower limb (Acute) Septic arthritis of right ankle (Acute) Chronic foot pain (Acute) Positive MIKE (antinuclear antibody) (Acute) Rheumatoid factor positive (Acute) Hypertension (Chronic) Abnormal electrocardiogram (Acute) CHF (congestive heart failure) (Chronic) Hypertriglyceridemia (Acute) Erectile dysfunction (Acute) Gout (Acute) Right leg swelling (Acute) likely venous insuffi Chronic bilateral low back pain without sciatica (Acute 06/11/16) Benign prostatic hyperplasia (Acute 06/22/13) Medical History Chronic LLQ pain Anasarca Constipation Atrial fibrillation 04/22/24 Per [facility]. -hb Abdominal pain Elevated blood pressure reading without diagnosis of hypertension Joint pain (06/22/13) Knee pain Hand joint pain (06/22/13) Back pain deteriorated ?related to fall 6 months ago Tick bite no sign of disease Right wrist pain Ankle pain, right Asthma (06/22/13) Asthma Hyperlipidemia Gout Surgical History Status post laminectomy (06/11/16) Status post carpal tunnel release Open Carpal Tunnel release Neck ortho surgery (09/17/15) LUMBAR SURGERY 12/30/16- [facility] Family History Sister , AGE 72 Diabetes Mother , AGE 94 Hyperlipidemia Father , 64 Essential hypertension Stroke Lung cancer Brother No problems noted. Social History Smoking/Tobacco Use Status: Never Second Hand Exposure: Yes Smoking risk assessment performed?: Yes Alcohol Intake: current Alcohol Intake frequency: a few times a week Alcohol type: beer Details: states he might drinkin a 12 pack a week Drug use: Never Substance use type: does not use Household members: none Housing: house Pets and animals: Yes Pets and animals: dog(s) Sexually active: Yes Do you think of yourself as: straight/heterosexual Current gender identity: male What is your relationship status?: Panel score (0-1 are the most socially isolated patients): 0 Seatbelt use: always 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 2 kids in area who look out for him, 3rd estranged. Lost to cancer in 2022
[2025-07-23] MEDS: Ketorolac 30 MG/ML VIAL IVP (17:13)
[2025-07-23 17:24] LABS: Abs Immature Grans 0.06 10^3/uL (0.0-0.06); HCT 44.0 % (40.0-50.0); HGB 14.5 g/dL (13.5-17.5); Immature Grans % 0.4 %; MCH 31.0 pg (27.0-33.0); MCHC 33.0 % (32.0-36.0); MCV 94 fL (80-95); MPV 11.0 fL (8.0-11.0); Platelet Count 282 10^3/uL (130-400); RBC 4.68 10^6/uL (4.36-5.78); RDW 14.3 % (11.8-14.1); RDW-SD 49.5 fL; WBC 16.36 10^3/uL (4.4-10.8)
[2025-07-23] MEDS: Magnesium Citrate 300 ML BTL PO (17:28)
[2025-07-23 17:38] LABS: ALT 51 U/L (16-63); AST 43 U/L (15-37); Albumin 3.6 g/dL (3.4-5.0); Alkaline Phosphatase 136 U/L (46-116); Anion Gap 11.3 mmol/L (3-11); BUN 28 mg/dL (7-18); Bilirubin, Total 0.9 mg/dL (0.2-1.0); CO2 27.7 mmol/L (21.0-32.0); Calcium 8.6 mg/dL (8.5-10.1); Chloride 105 mmol/L (98-107); Estimated GFR 61.90 (mL/min/1.73m2); Glucose 103 mg/dL (74-106); Lipase 29 U/L (<78); Sodium 144 mmol/L (136-145); Total Protein 7.0 g/dL (6.4-8.2)
[2025-07-23 17:40] LABS: Potassium 2.9 mmol/L (3.5-5.1)
[2025-07-23] MEDS: Potassium Chloride Liquid 20 MEQ PKT 40 MEQ PO (18:00)
[2025-07-23 18:13] VITALS: BP 103/56; PULSE 78; RESP 16; TEMP 36.2; O2SAT 99
== END 2025-07-23 18:24 | disposition home or self-care (01) ==
PROVIDERS: Emergency Provider Student in an Organized Health Care Education/Training Program; PCP Family Medicine
DX: M54.50 Low back pain, unspecified (principal)
CPT/HCPCS: 96374; 80053; 83690; 99284; 85025; 99283; J1885

== ENCOUNTER 2025-07-31 04:13 | Outpatient (CLI) | payer MEDICARE, BC, SELFPAY ==
[2025-07-31 15:04] LABS: Potassium 3.5 mmol/L (3.5-5.1)
== END 2025-07-31 04:14 | disposition home or self-care (01) ==
LOC: LOS 04:13
PROVIDERS: PCP Family Medicine; Visit Provider Family Medicine
DX: E87.6 Hypokalemia (principal)
CPT/HCPCS: 36415; 84132

== ENCOUNTER 2025-10-10 08:21 | Outpatient (CLI) | payer MEDICARE, BC, SELFPAY ==
[2025-10-10 15:25] LABS: Anion Gap 10.1 mmol/L (3-11); BUN 37 mg/dL (9-23); CO2 24.9 mmol/L (20.0-31.0); Calcium 10.0 mg/dL (8.3-10.6); Chloride 110 mmol/L (98-107); Glucose 113 mg/dL (74-106); Potassium 4.2 mmol/L (3.5-5.1); Sodium 145 mmol/L (136-145)
== END 2025-10-10 08:22 | disposition home or self-care (01) ==
PROVIDERS: PCP Family Medicine; Visit Provider Family Medicine
DX: E87.1 Hypo-osmolality and hyponatremia (principal); I50.9 Heart failure, unspecified
CPT/HCPCS: 36415; 80048; 83880

== ENCOUNTER → 2025-10-12 12:58 | Outpatient (BNVA) | payer MEDICARE, BC, SELFPAY | PROVIDERS: PCP Family Medicine; Referring Provider Family Medicine; Visit Provider Internal Medicine Cardiovascular Disease | DX: I50.43 Acute on chronic combined systolic (congestive) and diastolic (congestive) heart failure (principal); I48.0 Paroxysmal atrial fibrillation; Z79.01 Long term (current) use of anticoagulants; R60.0 Localized edema; M79.604 Pain in right leg; M25.671 Stiffness of right ankle, not elsewhere classified; Z91.199 Patient's noncompliance with other medical treatment and regimen due to unspecified reason | CPT/HCPCS: 99214 ==